=== PATIENT | female | born 1930 | race Caucasian/White ===

== ENCOUNTER 2018-09-02 16:02 | Observation (INO) | payer OTHER ==
--- OUTSIDE RECORDS SUMMARY | 2018-09-02 16:05 | XMS REPORT | Continuity of Care Document ---
:1930 Author Organization Interface Problems Problem Status Onset Classification Date Comments Source Date Reported Abdominal Active Finding 10/08/[address] [facility] pain 8 - [place] Medications Medication Details Route Status Patient Ordering Order Source Instructions Provider Date Aspirin DAILY [facility] [place] Levothyroxine DAILY AT [facility] [place] Amlodipine/Atorva DAILY AT Active [facility]600 [facility]17 [facility] [place] Trazodone AT BEDTIME Active [facility] [place] Famotidine DAILY Active [facility] [place] Docosahexanoic TWICE Active [facility] Ac/Epa DAILY 017 [facility] [place] Multivitamin DAILY Active [facility] [place] Pantoprazole DAILY Active [facility] [place] Vit TWICE Active [facility] C/E/Zn/Coppr/Lute DAILY 017 [facility] in/Zeaxan [place] Hydrocodone EVERY [address] [facility] [address] Bit/Acetaminophen HOURS 015 [facility] - NEEDED PRN [place] For pain to hands and feet Allergies, Adverse Reactions, Alerts Substance Category Reaction Severity Reaction Status Date Comments Source type Reported codeine Nausea/Vo Severe Allergy to Active [facility] Substance [facility] [place] Penicillins Hives Severe Allergy to Active [facility] Substance 8 [facility] [place] Sulfa Hives Severe Allergy to Active [facility] (Sulfonamide Substance 8 [facility] - Antibiotics) [place] Immunizations Immunization Date Given Site Status Last Updated Comments Source Results Order Name Results Value Reference Date Interpretation Comments Source Range Laboratory Glucose Level 111 mg/dL 65 - 120 10/[address] [facility] [address] [facility] /2018 [facility] [place] Laboratory Estimat 70 mL/min 90 10/[address] [facility] [address] Studies Glomerular /2017 [facility] Filtration [place] Rate Laboratory Creatinine 0.78 mg/dL 0.44 - 10/08 [facility]. Studies 1.00 [facility] [place] Laboratory Calcium Level 8.7 mg/dL 8.5 - 10.5 10/[address] [facility] [address] Studies /2018 [facility] [place] Laboratory Blood Urea 8 mg/dL 6 - 20 10/[address] [facility] [address] Studies Nitrogen /2017 [facility] [place] Laboratory Sodium Level 139 mEq/L 135 - 145 10/[address] [facility] [address] Studies /2018 [facility] [place] Laboratory Potassium 3.8 mEq/L 3.6 - 5.0 10/[address] [facility] [address] Studies Level /2017 [facility] [place] Laboratory Chloride Level 111 mEq/L 101 - 111 10/08 [facility]. Studies /2017 [facility] [place] Laboratory Carbon Dioxide 23 mEq/L 21 - 31 10/08 [facility]. Studies Level /2017 [facility] [place] Laboratory Magnesium 2.0 mg/dL 1.8 - 2.5 10/07 [facility]. Studies Level /2018 [facility] [place] Laboratory White Blood 5.6 K/uL 4.3 - 10.9 10/07 [facility]. Studies Count /2017 [facility] [place] Laboratory Red Cell 13.4 % 12.1 - 10/07 [facility]. Studies Distribution 15.2 LuSouqalmal - Width [place] Laboratory Red Blood 3.98 M/uL 3.86 - 10/07 [facility]. Studies Count 4.86 /2017 [facility] [place] Laboratory Platelet Count 196 K/uL 152 - 406 10/07 [facility]. Studies /2018 [facility] [place] Laboratory Neutrophils % 48.2 % 41.7 - [address] [facility] [address] Studies 73.7 /2017 [facility] [place] Laboratory Monocytes % 11.3 % 3.3 - 12.3 10/07 [facility]. Studies /2018 [facility] [place] Laboratory Mean Platelet 10.2 fL 7.6 - 11.3 10/07 [facility]. Studies Volume /2018 [facility] [place] Laboratory Mean 95.0 fL 80 - 100 10/07 [facility]. Studies Corpuscular /2018 [facility] - Volume [place] Laboratory Mean 33.4 g/dL 32.0 - 10/[address] [facility] [address] Studies Corpuscular 36.0 /2017 [facility] - Hemoglobin [place] [facility] Laboratory Mean 31.7 pg 27.0 - 10/[address] [facility] [address] Studies Corpuscular 35.0 /2017 [facility] - Hemoglobin [place] Laboratory Lymphocytes % 33.6 % 15.3 - [address] [facility] [address] Studies 44.8 /2017 [facility] [place] Laboratory Hemoglobin 12.6 g/dL 12.0 - 10/[address] [facility] [address] Studies 15.0 /2017 [facility] [place] Laboratory Hematocrit 37.8 % 36.0 - 10/[address] [facility] [address] Studies 45.0 /2017 [facility] [place] Laboratory Eosinophils % 6.0 % 0 - 4.4 10/[address] [facility] [address] Studies [facility] [place] Laboratory Basophils % 0.9 % 0 - 1.3 10/[address] [facility] [address] Studies /2017 [facility] [place] Laboratory Absolute 2.7 K/uL 1.8 - 8.0 10/[address] [facility] [address] Studies Neutrophil [facility] [place] Laboratory Absolute 0.6 K/uL 0.1 - 1.3 10/[address] [facility] [address] Studies Monocytes /2017 [facility] - (CBC) [place] Laboratory Absolute 1.9 K/uL 0.7 - 4.9 10/[address] [facility] [address] Studies Lymphocytes [facility] - (CBC) [place] Laboratory Absolute 0.3 K/uL 0 - 0.5 10/[address] [facility] [address] Studies Eosinophils [facility] - (CBC) [place] Laboratory Absolute 0.1 K/uL 0 - 0.5 10/[address] [facility] [address] Studies Basophils [facility] - (CBC) [place] Laboratory Phosphorus 2.8 mg/dL 2.5 - 4.3 10/[address] [facility] [address] Studies Level /2017 [facility] [place] Laboratory Total 0.8 mg/dL 0.3 - 1.2 10/05 [facility]. Studies Bilirubin [facility] [place] Laboratory Serum Total 6.3 g/dL 6.0 - 8.3 10/[address] [facility] [address] Studies Protein [facility] [place] Laboratory Lipase 27 U/L 22 - 51 10/[address] [facility] [address] Studies [facility] [place] Laboratory Globulin 2.6 g/dL 2.3 - 3.5 10/05 [facility]. Studies /2017 [facility] [place] Laboratory Direct 0.1 mg/dL 0 - 0.2 10/05 [facility]. Studies Bilirubin /2017 [facility] [place] Laboratory Aspartate 30 IU/L 10 - 42 10/05 [facility]. Studies Amino Transf /2017 [facility] - (AST/SGOT) [place] Laboratory Alkaline 74 IU/L 42 - 121 10/05 [facility]. Studies Phosphatase /2017 [facility] [place] Laboratory Albumin/Globul 1.4 1.1 - 1.8 10/05 [facility]. Studies in Ratio /2017 [facility] [place] Laboratory Albumin 3.7 g/dL 3.2 - 5.5 10/05 [facility]. Studies /2017 [facility] [place] Laboratory Alanine 21 IU/L 10 - 60 10/05 [facility] Studies Aminotransfera [facility] - se (ALT/SGPT) [place] Laboratory Urine pH 5.5 10/04 [facility]. Studies [facility] [place] Laboratory Urine Total Urine 10/04 [facility] Studies Protein Total Souqalmal - Protein [place] Laboratory Urine Specific 1.025 10/04 [facility] Studies [place] [facility] [place] Laboratory Urine Nitrite Urine 10/04 [facility] Studies Nitrite [facility] [place] Laboratory Urine Urine 10/04 [facility] Studies Leukocyte Leukocyte Souqalmal - Esterase Esterase [place] Laboratory Urine Ketones Urine 10/04 [facility] Studies Ketones /2017 [facility] [place] Laboratory Urine Glucose Urine 10/04 [facility] Studies Glucose [facility] [place] Laboratory Urine Blood Urine 10/04 [facility]. Studies Blood /2017 [facility] [place] Laboratory B-Type 57 pg/ml 10/04 [facility] Studies Natriuretic [facility] - Peptide [place] Laboratory Creatine 4.1 ng/ml 0.3 - 4.0 10/04 [facility] Studies Kinase MB [facility] [place] Laboratory Rapid Troponin null 10/04 [facility]. Studies I [facility] [place] Laboratory Creatine 80 IU/L 22 - 269 10/04 [facility]. Studies Kinase /2017 [facility] [place] Laboratory Prothrombin 11.4 9.5 - 12.5 10/04 [facility]. Studies Time SECONDS [facility] [place] Laboratory INR 0.97 10/[address] [facility] [address] Studies International /2017 [facility] - Normalized [place] Ratio Laboratory Activated 31.0 24.3 - 10/[address] [facility] [address] Studies Partial SECONDS 36.9 [facility] - Thromboplast [place] Time Vital Signs Vital Sign Value Date Comments Source Temperature Oral (F) 97.6 F 10/08/[address] [facility] [place] Heart Rate 53 10/08/[address] [facility] [place] Respitory Rate 18 10/08/[address] [facility] [place] Systolic (mm Hg) 140 10/08/[address] [facility] [place] Diastolic (mm Hg) 67 10/08/[address] [facility] [place] Height 69 10/07/[address] [facility] [place] Weight 138.10 10/07/[address] [facility] [address] [facility] [place] Encounters Location Location Encounter Encounter Reason Attending ADM DC Status Source Details Type Number For Provider Date Date Visit [facility] [id number] 10/05 10/[address] [facility] [place] [facility] [id number] MELLISSA 07/26 Active [facility] [place] [facility] [id number] MELLISSA 08/16 Active [facility] /[address] [place], [place] [address] Outpatient [id number] MELLISSA 09/[address] Procedures Procedure Code Date Perfomer Comments Source Abdomen W Erect [id number] 10/06/[address] [facility] [place] Abdomen W Erect [id number] 10/05/[address] [facility] [place] [id number] 10/04/[address] [facility] [facility] [place] Count [id number] 10/04/[address] [facility] [facility] [place] Abdomen & Pelvis [id number] 10/04/[address] [facility] W Contrast [place] Chest Single [id number] 10/04/[address] [facility] [facility] - View [place]
[2018-09-02] MEDS ORDERED: DIAZEPAM 5 MG TABLET ONE (16:50)
[2018-09-02] MEDS ORDERED: ONDANSETRON 4 MG/2 ML VIAL ONE (16:50)
[2018-09-02] MEDS ORDERED: NA CHLORIDE 0.9% 500 ML ONE (16:50)
[2018-09-02 16:54] LABS: Absolute Lymphocytes (CBC) 2.1 K/uL (0.7-4.9); Absolute Monocytes 0.7 K/uL (0.1-1.3); Absolute Neutrophil 3.6 K/uL (1.8-8.0); Basophils % 0.8 % (0-1.3); Eosinophils % 0.8 % (0-4.4); Hematocrit 43.2 % (36.0-45.0); Lymphocytes % 32.7 % (15.3-44.8); MPV 9.2 fL (7.6-11.3); Monocytes % 10.2 % (3.3-12.3)
[2018-09-02 17:14] LABS: Albumin 3.7 g/dL (3.4-5.0); Bilirubin Direct 0.2 mg/dL (0-0.2); Bilirubin Total 0.8 mg/dL (0.2-1.0); Protein, Total 7.3 g/dL (6.4-8.2)
[2018-09-02 17:55] LABS: Urine Blood NEGATIVE (NEG); Urine Glucose NEGATIVE (NEG); Urine Protein NEGATIVE (NEG); Urine Specific Gravity 1.015 (1.005-1.030); Urine pH 7.5 (5.0-7.0)
[2018-09-02 18:04] LABS: Urine Amorphous Sediment TRACE /HPF (NONE SEEN); Urine Bacteria <20 /HPF (<20); Urine Culture Reflex Order NOT NEEDED; Urine RBC NONE SEEN /HPF (NONE SEEN)
[2018-09-02] MEDS ORDERED: POTASSIUM CL SA 10 MEQ TAB PO ONE (18:08)
--- NOTE | 2018-09-02 19:21 | RAD REPORT ---
EXAM DESCRIPTION: CT - Abdomen Pelvis W Contrast - 09/02/2018 7:03 pm CLINICAL HISTORY: Abdominal pain with vomiting COMPARISON: August 25, 2018 MRI spine September 2017 CT TECHNIQUE: Computed axial tomography of the abdomen pelvis was obtained. 100 cc Isovue-300 was admin istered intravenously. Oral contrast was given All CT scans are performed using dose optimization technique as appropriate and may include automated exposure control or mA/KV adjustment according to patient size. FINDINGS: 3.3 centimeter hepatic cyst is unchanged Small enhancing splenic lesions are unchanged probably representing hemangiomas. A small splenic cyst is noted. The pancreas is atrophic. The adrenals and kidneys appear unremarkable Postsurgical changes involve the colon. The bowel caliber and wall thickness is normal. There is no evidence of diverticulitis. A hysterectomy has been performed. The gallbladder has been r emoved Subacute fracture of L1 vertebral body appears unchanged from the recent MRI IMPRESSION: No acute abnormality is displayed.
--- NOTE | 2018-09-02 19:47 | ER ---
Nurse's Notes [facility] Name: Elvi Roberts Age: 87 yrs Sex: Female : 1930 Arrival Date: 09/02/2018 Time: 16:06 Bed 7 Private MD: Herman Cantrell C Diagnosis: Abdominal pain. Possible drug withdrawal Presentation: 09/02 16:08 Presenting complaint: Patient states: For the last few days I have been feeling shaky la1 and nausea. I also have lower back pain from a compression fracture. Transition of care: patient was not received from another setting of care. Onset of symptoms was September 02, 2018. Risk Assessment: Do you want to hurt yourself or someone else? Patient reports no desire to harm self or others. Initial Sepsis Screen: Does the patient meet any 2 criteria? No. Patient's initial sepsis screen is negative. Does the patient have a suspected source of infection? No. Patient's initial sepsis screen is negative. Care prior to arrival: None. 16:08 Method Of Arrival: Ambulatory la1 16:08 Acuity: CHRISSY 3 la1 16:11 Note Pt also reports bright red blood on toilet paper after BM and some abdominal pain la1 for the last 2 days. Historical: - Allergies: 16:08 Codeine; la1 16:08 PENICILLINS; la1 16:08 Sulfa (Sulfonamide Antibiotics); la1 - PMHx: 16:08 Hypertension; Hypothyroidism; GERD; neuropathy; liver cancer; colon cancer; la1 - Immunization history:: Adult Immunizations up to date. - Social history:: Smoking status: Patient/guardian denies using tobacco. - Ebola Screening: : No symptoms or risks identified at this time. - Family history:: not pertinent. - Hospitalizations: : No recent hospitalization is reported. Screenin:40 Abuse screen: Denies threats or abuse. Denies injuries from another. Nutritional sg screening: No deficits noted. Tuberculosis screening: No symptoms or risk factors identified. Never had TB. Fall Risk None identified. Assessment: 16:40 General: Appears in no apparent distress. comfortable, well groomed, well developed, sg well nourished, Behavior is calm, cooperative, appropriate for age. Pain: Complains of pain in lumbar area and left hip Quality of pain is described as aching, Is chronic. Neuro: Level of Consciousness is awake, alert, obeys commands, Oriented to person, place, time, Appropriate for age R Programmer are equal bilaterally Moves all extremities. Speech is normal, Facial symmetry appears normal. Cardiovascular: Capillary refill is brisk in bilateral fingers Patient's skin is warm and dry. Chest pain is denied. Respiratory: Airway is patent Respiratory effort is even, unlabored, Respiratory pattern is regular, symmetrical. GI: Abdomen is flat, non-distended, Reports tolerance of fluids, tolerance of food. : No signs and/or symptoms were reported regarding the genitourinary system. EENT: No signs and/or symptoms were reported regarding the EENT system. Derm: Skin is pink, warm \T\ dry. Musculoskeletal: No signs and/or symptoms reported regarding the musculoskeletal system. 16:48 Reassessment: tremors noted to BUE at this time, pt reports feeling cold, pt currently sg has warm blankets on at this time. 19:57 Reassessment: Patient appears in no apparent distress at this time. Patient and/or ed1 family updated on plan of care and expected duration. Pain level reassessed. Patient is alert, oriented x 3, equal unlabored respirations, skin warm/dry/pink. Patient denies pain at this time. Patient states symptoms have improved. Vital Signs: 16:12 BP 176 / 78; Pulse 74; Resp 18; Temp 97.0; Pulse Ox 98% on R/A; Weight 58.97 kg; Height la1 5 ft. 8 in. (172.72 cm); 16:44 Temp 99.0(TE); sg 19:57 BP 175 / 88; Pulse 73; Resp 18; Temp 97.5(O); Pulse Ox 99% on R/A; Pain 0/10; ed1 21:01 BP 145 / 98; Pulse 68; Resp 18; Temp 98.4(O); Pulse Ox 97% on R/A; Pain 0/10; ed1 16:12 Body Mass Index 19.77 (58.97 kg, 172.72 cm) la1 ED Course: 16:06 Patient arrived in ED. sb2 16:06 Herman Cantrell MD is Private Physician. sb2 16:09 Triage completed. la1 16:09 Arm band placed on right wrist. la1 16:14 Jose Larsen MD is Attending Physician. rn 16:40 Initial lab(s) drawn, by me, sent to lab. First set of blood cultures drawn by me. sg Inserted saline lock: 22 gauge in right forearm, using aseptic technique. Blood collected. 16:44 Omega De Leon, RN is Primary Nurse. sg 17:48 Urine Microscopic Only Sent. ds4 18:[address] via stretcher. eh 19:02 CT completed. Patient tolerated procedure well. Patient moved back from CT. kw1 19:03 CT Abd/Pelvis - W/Contrast In Process Unspecified. EDMS 19:03 Primary Nurse role handed off by Omega De Leon, RICHARD ed1 19:03 Kirstie Evans, RN is Primary Nurse. ed1 19:28 Attending Physician role handed off by Jose Larsen MD pkl 19:28 Aman Fung MD is Attending Physician. pkl 19:45 Herman Cantrell MD is Hospitalizing Provider. pkl 19:57 Patient has correct armband on for positive identification. Placed in gown. Call light ed1 in reach. Side rails up X2. Adult w/ patient. Pulse ox on. NIBP on. 19:57 No provider procedures requiring assistance completed. Patient admitted, IV remains in ed1 place. intact, No redness/swelling at site. 20:22 Awaiting bed assignment. ed1 Administered Medications: 16:46 Drug: Zofran 4 mg Route: IVP; Site: right forearm; sv 17:22 Follow up: Response: No adverse reaction; Nausea is decreased sv 16:46 Drug: NS 0.9% 500 ml Route: IV; Rate: bolus; Site: right forearm; sv 17:22 Follow up: Response: No adverse reaction; IV Status: Completed infusion; IV Intake: sv 500ml 18:01 Drug: Valium 5 mg Route: PO; sg 19:00 Follow up: Response: No adverse reaction; Marked relief of symptoms ed1 18:01 Drug: Potassium Chloride 40 mEq Route: PO; sg 19:00 Follow up: Response: No adverse reaction ed1 Intake: 17:22 PO: 500ml (Contrast); Total: 500ml. sv 17:22 IV: 500ml; Total: 1000ml. sv 17:22 Called and informed Asa. sv Outcome: 19:47 Decision to Hospitalize by Provider. pkl 21:44 Patient left the ED. ed1 Signatures: Dispatcher [employer] Janet Francisco, RN RN Omega Mir, RN RN Aman Pruitt MD MD pkl Hagler, Ervin eh Nieto, Roman, MD MD rn Riggs, Erika, RN RN ed1 Stalin Youngblood ds4 Jose Guerrero RN RN la1 Evon Samuel kw1 Isadora Johnson 2
--- NOTE | 2018-09-02 19:47 | EDPHYS ---
Physician Documentation [facility] Name: Elvi Roberts Age: 87 yrs Sex: Female : 1930 Arrival Date: 09/02/2018 Time: 16:06 Bed 7 Private MD: Herman Cantrell C ED Physician Aman Fung HPI: 09/02 16:28 This 87 yrs old Female presents to ER via Ambulatory with complaints of rn Shakiness, Back Pain. 16:28 The patient presents with abdominal pain in the lower abdomen. Onset: The rn symptoms/episode began/occurred 3 day(s) ago. The symptoms do not radiate. Associated signs and symptoms: Pertinent positives: nausea, Pertinent negatives: diarrhea, fever, vomiting blood. The symptoms are described as achy. Modifying factors: The symptoms are alleviated by nothing, the symptoms are aggravated by nothing. Severity of pain: At its worst the pain was mild in the emergency department the pain is unchanged. The patient has not experienced similar symptoms in the past. Reports back injury in June, on tramadol tid for 30 days, then stopped them 5 days ago, now having nausea, feels "Sick to her stomach", intermittent abd pain, and shaking. . Historical: - Allergies: 16:08 Codeine; la1 16:08 PENICILLINS; la1 16:08 Sulfa (Sulfonamide Antibiotics); la1 - PMHx: 16:08 Hypertension; Hypothyroidism; GERD; neuropathy; liver cancer; colon cancer; la1 - Immunization history:: Adult Immunizations up to date. - Social history:: Smoking status: Patient/guardian denies using tobacco. - Ebola Screening: : No symptoms or risks identified at this time. - Family history:: not pertinent. - Hospitalizations: : No recent hospitalization is reported. ROS: 16:28 Constitutional: Negative for fever, chills, and weight loss, Eyes: Negative for injury, rn pain, redness, and discharge, Neck: Negative for injury, pain, and swelling, Cardiovascular: Negative for chest pain, palpitations, and edema, Respiratory: Negative for shortness of breath, cough, wheezing, and pleuritic chest pain, Abdomen/GI: + abd pain/nausea Back: + chronic back pain MS/Extremity: Negative for injury and deformity, Skin: Negative for injury, rash, and discoloration, Neuro: Negative for headache, numbness, tingling, and seizure. Exam: 16:28 Constitutional: This is a well developed, well nourished patient who is awake, alert, rn and in no acute distress. Standing in room without acute distress Head/Face: Normocephalic, atraumatic. Eyes: Pupils equal round and reactive to light, extra-ocular motions intact. Lids and lashes normal. Conjunctiva and sclera are non-icteric and not injected. Cornea within normal limits. Periorbital areas with no swelling, redness, or edema. ENT: + tongue fasciculations Cardiovascular: Regular rate and rhythm. No pulse deficits. Respiratory: No increased work of breathing, no retractions or nasal flaring. Abdomen/GI: soft, + mild suprapubic tenderness, no rebound Skin: Warm, dry with normal turgor. Normal color with no rashes, no lesions, and no evidence of cellulitis. MS/ Extremity: Pulses equal, no cyanosis. Neurovascular intact. Full, normal range of motion. Equal circumference. Neuro: Awake and alert, GCS 15, oriented to person, place, time, and situation. Cranial nerves II-XII grossly intact. Motor strength 5/5 in all extremities. Sensory grossly intact. Cerebellar exam normal. Normal gait. + coarse tremor bilateral upper ext Vital Signs: 16:12 BP 176 / 78; Pulse 74; Resp 18; Temp 97.0; Pulse Ox 98% on R/A; Weight 58.97 kg; Height la1 5 ft. 8 in. (172.72 cm); 16:44 Temp 99.0(TE); sg 19:57 BP 175 / 88; Pulse 73; Resp 18; Temp 97.5(O); Pulse Ox 99% on R/A; Pain 0/10; ed1 21:01 BP 145 / 98; Pulse 68; Resp 18; Temp 98.4(O); Pulse Ox 97% on R/A; Pain 0/10; ed1 16:12 Body Mass Index 19.77 (58.97 kg, 172.72 cm) la1 MDM: 16:14 Patient medically screened. rn 19:35 Data reviewed: vital signs, nurses notes. pkl 19:44 Data reviewed: lab test result(s), EKG, radiologic studies, CT scan. pkl 19:47 Patient medically screened. pkl 20:16 ED course: Left message in Dr. Sheppard's answering machine regarding admission ( pkl Observation). 09/02 16:24 Order name: Basic Metabolic Panel; Complete Time: 17:31 rn 09/02 16:24 Order name: CBC with Diff; Complete Time: 17:31 rn 09/02 16:24 Order name: Hepatic Function; Complete Time: 17:31 rn 09/02 16:24 Order name: Lipase; Complete Time: 17:31 rn 09/02 16:25 Order name: Urine Microscopic Only rn 09/02 16:25 Order name: Urine Microscopic Only; Complete Time: 18:21 EDMS 09/02 16:24 Order name: CT Abd/Pelvis - W/Contrast; Complete Time: 19:38 rn 09/02 17:50 Order name: Urine Dipstick--Ancillary (enter results); Complete Time: 18:21 ds4 09/02 19:57 Order name: Basic Metabolic Panel EDMS 09/02 19:58 Order name: Basic Metabolic Panel; Complete Time: 07:20 EDMS 09/02 19:58 Order name: CBC with Automated Diff EDMS 09/02 19:58 Order name: CBC with Automated Diff; Complete Time: 07:20 EDMS 09/02 16:24 Order name: IV Start; Complete Time: 16:50 rn 09/02 16:24 Order name: Labs collected and sent; Complete Time: 16:50 rn 09/02 16:25 Order name: Urine Dipstick-Ancillary (obtain specimen); Complete Time: 17:48 rn 09/02 19:57 Order name: Regular EDMS Administered Medications: 16:46 Drug: Zofran 4 mg Route: IVP; Site: right forearm; sv 17:22 Follow up: Response: No adverse reaction; Nausea is decreased sv 16:46 Drug: NS 0.9% 500 ml Route: IV; Rate: bolus; Site: right forearm; sv 17:22 Follow up: Response: No adverse reaction; IV Status: Completed infusion; IV Intake: sv 500ml 18:01 Drug: Valium 5 mg Route: PO; sg 19:00 Follow up: Response: No adverse reaction; Marked relief of symptoms ed1 18:01 Drug: Potassium Chloride 40 mEq Route: PO; sg 19:00 Follow up: Response: No adverse reaction ed1 Disposition: 09/02/18 19:47 Hospitalization ordered by Herman Cantrell for Observation. Preliminary diagnosis is Abdominal pain. Possible drug withdrawal. - Bed requested for Telemetry/MedSurg (observation). - Status is Observation. ed1 - Condition is Stable. - Problem is new. - Symptoms are unchanged. UTI on Admission? No Signatures: Dispatcher [employer] EDMS Evon Leal, RN RN kl Janet Cortez, RN RICHARD Omega De Leon, RN Aman Velarde MD MD pkl Jose Larsen MD MD rn Riggs, Erika, RN RN ed1 AttemaJose RN RN la1 Corrections: (The following items were deleted from the chart) 20:45 19:47 Hospitalization Ordered by A Tamia JACQUES for Observation. Preliminary diagnosis is kl Abdominal pain. Possible drug withdrawal. Bed requested for Telemetry/MedSurg (observation). Status is Observation. Condition is Stable. Problem is new. Symptoms are unchanged. UTI on Admission? No. pkl 21:44 20:45 09/02/2018 19:47 Hospitalization Ordered by A Tamia JACQUES for Observation. ed1 Preliminary diagnosis is Abdominal pain. Possible drug withdrawal. Bed requested for Telemetry/MedSurg (observation). Status is Observation. Condition is Stable. Problem is new. Symptoms are unchanged. UTI on Admission? No. pooja
[2018-09-02] MEDS ORDERED: ACETAMINOPHEN 500 MG TAB PO PRN (19:55)
[2018-09-02] MEDS ORDERED: ONDANSETRON 4 MG/2 ML VIAL IV PRN ×2 (19:55→20:55)
[2018-09-02] MEDS ORDERED: HYDROCODONE/APAP 5/325 MG TAB PO PRN (20:54)
[2018-09-02] MEDS ORDERED: MORPHINE 2 MG/ML SYR IV PRN (20:55)
[2018-09-02 22:19] VITALS: O2SAT 99
[2018-09-02] MEDS: NA CHLORIDE 0.9% 1,000 ML IV SCH (22:38)
[2018-09-02 22:41] VITALS: BMI 20.5
[2018-09-03] MEDS: NA CHLORIDE 0.9% 1,000 ML IV SCH (05:44)
[2018-09-03 06:15] LABS: Absolute Monocytes 0.6 K/uL (0.1-1.3); Absolute Neutrophil 2.9 K/uL (1.8-8.0); Basophils % 0.9 % (0-1.3); Eosinophils % 2.4 % (0-4.4); Hematocrit 37.7 % (36.0-45.0); Lymphocytes % 35.7 % (15.3-44.8); Monocytes % 10.7 % (3.3-12.3)
[2018-09-03 07:00] LABS: Potassium 3.5 mmol/L (3.5-5.1)
[2018-09-03 13:31] VITALS: BP 178/77; TEMP 99.3
--- NOTE | 2018-09-04 00:25 | SS ---
Date of Discharge: 09/03/2018 Chief Complaint: Nausea and abdominal pain. History Of Present Illness: This is an 87-year-old female patient who has some heartburn, indigestion, some nausea, and abdominal pain from time to time, but yesterday after she had this complaint, her family decided to bring her to emergency room as she reports and after she was evaluated, she was admitted to the hospital. She has not had any recurrence of this symptom after she came into the hospital. Denies any vomiting, fever, chills. No constipation. No diarrhea. No bleeding. Allergies: CODEINE, PENICILLIN, AND SULFA. Medications: List reviewed. Review of Systems: GI: As mentioned above. All other systems reviewed are negative. Past Medical History: Significant for hypertension, hyperlipidemia, hypothyroidism, osteoarthritis at multiple sites, gastroesophageal reflux disease, colon cancer, peripheral neuropathy, insomnia, and recently diagnosed compression fracture of L1 for which she has seen Dr. Boudreaux day before yesterday, and she reports that Dr. Boudreaux is going to schedule her for a kyphoplasty procedure in the near future. She has chronic back pain with this and reports that her back pain is slowly improving. Past Surgical History: Partial colectomy due to colon cancer, tonsillectomy, hysterectomy, elbow surgery, hemorrhoidectomy, cataract surgery, appendectomy, and cholecystectomy. Social History: Negative for smoking, alcohol use. Family History: Not pertinent. Physical Examination: Vital Signs: Temperature 98.2, pulse 69, respiratory rate 16, blood pressure 137/64, oxygen saturation 94%. Height 5 feet 8 inches, weight 134 pounds. General: Awake, alert, oriented, not in distress. HEENT: Head atraumatic, normocephalic. Conjunctivae nonerythematous. Sclerae white. Mouth, no thrush or edema noted. Ears/Nose, no mass, lesion, discharge noted. Neck: Supple. No JVD, lymph nodes, bruit, thyromegaly noted. Lungs: Bilateral good equal air entry. Clear to auscultation. No rhonchi. No rales. Heart: Normal heart sounds, no murmur or gallop. Abdomen: Soft, bowel sounds normal. No guarding, rigidity, tenderness, mass, hepatosplenomegaly, distention, or bruit noted. Extremities: No leg edema. No calf tenderness. Skin: No rash, ulcer, cellulitis. Lymphatics: No lymph node enlargement in neck, supraclavicular, infraclavicular region. Neuro: No focal neurological deficit. Chest: Unremarkable. External Genitalia: Deferred. Rectal: Deferred. Laboratory Data: Yesterday, white count 6.4, hemoglobin 14.5, platelets 229. Today, white count 5.7, hemoglobin 12.7, platelets of 193. Yesterday, sodium 140, potassium 3, chloride 105, bicarb 24, BUN 19, creatinine 0.98, glucose 116. Liver function tests unremarkable. Lipase 241. Today, sodium 144, potassium 3.5, chloride 110, bicarb 25, BUN 18, creatinine 0.90, glucose 97. Urinalysis negative. Chest x-ray, no acute abnormality noted. Presence of L1 compression fracture noted on CT abdomen with no other acute abnormality. Hospital Course: After the patient was admitted to the hospital, her condition has remained stable. Medically, she is stable for discharge, and I have encouraged her to keep her appointment with Dr. Boudreaux for outpatient kyphoplasty procedure which will be done sometime in the near future. Meanwhile , she will continue all her previously prescribed home medications. She takes pantoprazole in the morning, and she was also prescribed famotidine at nighttime , but she stopped taking it recently, and I have advised her to restart her famotidine that she has at home. The patient will keep that appointment to see me. Final Diagnoses: 1. Abdominal pain. 2. Gastroesophageal reflux disease. 3. Hypertension. 4. Compression fracture of L1. 5. Colon cancer. 6. Osteoarthritis, multiple sites. 7. Hyperlipidemia. 8. Hypothyroidism. 9. Peripheral neuropathy. 10. Insomnia. HUBERT/MODL Voice ID: [id number] Report ID: [id number] RHONDA
== END 2018-09-03 13:45 | disposition home or self-care (01) ==
LOC: ER 16:02 → ERHOLD 19:52 → 4TH 21:31
PROVIDERS: ADMIT Internal Medicine; ATTEND Internal Medicine
DX: R10.9 Unspecified abdominal pain (principal); K21.9 Gastro-esophageal reflux disease without esophagitis; I10 Essential (primary) hypertension; S32.019A Unspecified fracture of first lumbar vertebra, initial encounter for closed fracture; E78.5 Hyperlipidemia, unspecified; E03.9 Hypothyroidism, unspecified; M19.90 Unspecified osteoarthritis, unspecified site; X58.XXXA Exposure to other specified factors, initial encounter; Y92.9 Unspecified place or not applicable; G62.9 Polyneuropathy, unspecified; G47.00 Insomnia, unspecified; Z88.0 Allergy status to penicillin; Z88.2 Allergy status to sulfonamides; Z90.49 Acquired absence of other specified parts of digestive tract; Z85.038 Personal history of other malignant neoplasm of large intestine
CPT/HCPCS: 36415; 74177; 80048 ×2; 80076; 83690; 85025 ×2; 96361; 96374; 99284; G0378 ×2; J2405 ×3; J7030 ×2; Q9967; 81003; 81015

== ENCOUNTER 2020-09-18 15:28 | Emergency (ER) | payer OTHER ==
--- NOTE | 2020-09-18 16:18 | RAD REPORT ---
EXAM DESCRIPTION: CT - Head Brain Wo Cont - 09/18/2020 4:06 pm CLINICAL HISTORY: Slurred speech COMPARISON: 2019 TECHNIQUE: Computed axial tomography of the head was obtained. IV contrast was not requested. All CT scans are performed using dose optimization technique as appropriate and may include automated exposure control or mA/KV adjustment according to patient size. FINDINGS: An intracranial bleed is not seen . The ventricles are normal in caliber. No extra-axial fluid collection is noted. 2.3 centimeter low-density area left cerebellum likely old infarction Moderate low-density areas within periventricular, deep and subcortical white matter likely represent ischemic changes secondary to small vessel disease. Fluid within the sinuses/ mastoids is not seen. IMPRESSION: No acute intracranial abnormality is seen. If patient's symptoms persist MRI of the bra in would be recommended.
--- NOTE | 2020-09-18 17:15 | RAD REPORT ---
EXAM DESCRIPTION: Dae Single View09/18/2020 4:51 pm CLINICAL HISTORY: Colon cancer/alteration of consciousness COMPARISON: 2017 FINDINGS: The lungs appear clear of acute infiltrate. The heart is normal size IMPRESSION: No acute abnormalities displayed
[2020-09-18 17:35] LABS: Absolute Lymphocytes (CBC) 2.2 K/uL (0.7-4.9); Basophils % 0.6 % (0-1.3); Lymphocytes % 31.6 % (15.3-44.8); MPV 9.4 fL (7.6-11.3); RBC Red Blood Cell Count 4.14 M/uL (3.86-4.86)
[2020-09-18 17:48] LABS: Potassium 3.7 mmol/L (3.5-5.1)
[2020-09-18 17:50] LABS: Protime INR 0.96
--- NOTE | 2020-09-18 18:37 | RAD REPORT ---
EXAM DESCRIPTION: MRI - Brain W/Wo Cont - 09/18/2020 6:19 pm CLINICAL HISTORY: Confusion COMPARISON: July 2020 MRI TECHNIQUE: Axial, sagittal, and coronal magnetic images of the brain were obtained. 20 cc MultiHance administered intravenously FINDINGS: Moderate signal within periventricular, deep and subcortical white matter probably ischemi c changes secondary to small vessel disease. 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 The ventricles are normal in caliber. Diffusion-weighted/ ADC mapping sequences do not demonstrate evidence of an acute infarction. No abnormal enhancement within the brain is seen. An extra-axial fluid collection is not noted. Fluid within the sinuses/mastoids is not seen IMPRESSION: No acute abnormality displayed
--- NOTE | 2020-09-18 18:59 | ER ---
Nurse's Notes [facility] Name: Elvi Roberts Age: 89 yrs Sex: Female : 1930 Arrival Date: 09/18/2020 Time: 15:29 Bed 20 Private MD: Herman Cantrell C Diagnosis: Weakness;Aphasia-resolved Presentation: 09/18 15:43 Chief complaint: Patient states: about 0230 i got cold and went to the bathroom and it tw2 was like i was dizzy like and i noticed i couldn't talk, its like i know what i am trying to say but i cant get the words out Patient's son or daughter states: she had an appointment to get her first Covid shot today so we picked her up and did that she she got it then we were eating and she told us that she woke up last night around 0230 this morning and told me she couldn't talk, we noticed also at lunch today that she couldn't find her words and the she was slurring her words as well and then at other times it was so muffled we were having to get her to repeat what she was saying all together. Coronavirus screen: At this time, the client does not indicate any symptoms associated with coronavirus-19. Ebola Screen: Patient denies travel to an Ebola-affected area in the 21 days before illness onset. Initial Sepsis Screen: Does the patient meet any 2 criteria? No. Patient's initial sepsis screen is negative. Does the patient have a suspected source of infection? No. Patient's initial sepsis screen is negative. Risk Assessment: Do you want to hurt yourself or someone else? Patient reports no desire to harm self or others. Onset of symptoms was September 18, 2020. 15:43 Method Of Arrival: Ambulatory tw2 15:43 Acuity: CHRISSY 3 tw2 16:11 No acute neurological deficit is noted. rb3 Triage Assessment: 15:50 The onset of the patients symptoms was September 18, 2020 at 02:30. General: Appears in tw2 no apparent distress. Behavior is calm, cooperative, appropriate for age. Pain: Denies pain. Neuro:. Stroke Activation: Symptom onset > 6 hours Physician: Stroke Attending; Name: ; Notified At: ; Arrived At: Physician: Chief Stroke Resident; Name: ; Notified At: ; Arrived At: Physician: Stroke Resident; Name: ; Notified At: ; Arrived At: Physician: ED Attending; Name: ; Notified At: ; Arrived At: Physician: ED Resident; Name: ; Notified At: ; Arrived At: Historical: - Allergies: 15:50 Codeine; tw2 15:50 PENICILLINS; tw2 15:50 Sulfa (Sulfonamide Antibiotics); tw2 - Home Meds: 15:50 amlodipine-benazepril 5-10 mg Oral cap 1 cap once daily [Active]; Aspir-81 81 mg Oral tw2 TbEC 1 tab once daily [Active]; famotidine 40 mg Oral tab 1 tab once daily [Active]; Fish Oil 1,000 mg Oral cap 2 cap daily [Active]; levothyroxine 75 mcg tab 1 tab once daily [Active]; Multivitamin 50 Plus Oral tab daily [Active]; Starke 5-325 mg Oral tab [Active]; pantoprazole 40 mg Oral TbEC 1 tab once daily [Active]; PreserVision AREDS 2 [id number] ts-dylc-vj-mg Oral cap [Active]; trazodone 50 mg Oral tab [Active]; - PMHx: 15:50 colon cancer; Hypertension; GERD; Hypothyroidism; liver cancer; neuropathy; tw2 - Immunization history:: Adult Immunizations. - Social history:: Smoking status: . Screenin:00 Abuse screen: Denies threats or abuse. Nutritional screening: No deficits noted. rb3 Tuberculosis screening: No symptoms or risk factors identified. Assessment: 16:00 General: Appears in no apparent distress. comfortable, Behavior is calm, cooperative, rb3 Denies fever, feeling ill. Pain: Denies pain. Neuro: Level of Consciousness is awake, alert, obeys commands, Oriented to person, place, time, situation, Speech is normal, Daughter reports that the pt. was going to get her Covid shot today around 12:30 when she noticed that her mother's speech was slurred. Daughter reports that it's normal for her to have difficulty finding words sometimes, but her speech was more slurred. Pt. reports that she had trouble talking last night per daughter's report.. Cardiovascular: Patient's skin is warm and dry. Cardiovascular: Denies chest pain, nausea, vomiting. Respiratory: Airway is patent Respiratory effort is even, unlabored, Respiratory pattern is regular, symmetrical, Denies cough, shortness of breath. GI: No signs and/or symptoms were reported involving the gastrointestinal system. : No signs and/or symptoms were reported regarding the genitourinary system. 16:00 Derm: Reports she has some spots on her chest. Musculoskeletal: Range of motion: intact rb3 in all extremities. 16:00 VAN Scoring: Arm Drift: Patients demonstrates NO arm weakness. Patient is VAN Negative. rb3 16:00 Patient has been NPO before screening. The patient is alert, and able to follow rb3 commands. The patient does not exhibit slurred or garbled speech. The patient is not exhibiting difficulty speaking. The patient does not exhibit difficulty understanding words. The patient is able to swallow own secretions with no drooling or need for suction. Patient tolerated one teaspoon of water. No drooling, immediate coughing, gurgling, or clearing of the throat was noted. The patient tolerated 90mL of water. No drooling, immediate coughing, gurgling, or clearing of the throat was noted. The patient passed the bedside swallow screening. Oral medications may be given as ordered. Contact Physician for further diet orders. Provider notified of bedside swallow screening results: Tanner Murry MD. 16:55 Reassessment: Daughter reports that the pt. speech and behavior continue to be normal. rb3 Pt. is ready to go home. 17:00 Reassessment: Patient appears in no apparent distress at this time. No changes from rb3 previously documented assessment. 18:00 Reassessment: Patient appears in no apparent distress at this time. Patient and/or rb3 family updated on plan of care and expected duration. Pain level reassessed. Patient is alert, oriented x 3, equal unlabored respirations, skin warm/dry/pink. Patient denies pain at this time. 18:05 Reassessment: Pt. went to MRI. rb3 19:30 General: Appears in no apparent distress. comfortable, Behavior is calm, cooperative. sf Pain: Denies pain. Neuro: Level of Consciousness is awake, alert, obeys commands, Oriented to person, place, time, situation. Cardiovascular: Patient's skin is warm and dry. Respiratory: Airway is patent Respiratory effort is even, unlabored, Respiratory pattern is regular, symmetrical. 20:50 Reassessment: Patient appears in no apparent distress at this time. No changes from sf previously documented assessment. Patient and/or family updated on plan of care and expected duration. Pain level reassessed. Patient is alert, oriented x 3, equal unlabored respirations, skin warm/dry/pink. Vital Signs: 15:43 BP 151 / 79; Pulse 72; Resp 17; Temp 97.9(TE); Pulse Ox 97% on R/A; Weight 65.77 kg; tw2 Height 5 ft. 8 in. (172.72 cm) (R); 16:30 BP 129 / 69; Pulse 59; Resp 20; Pulse Ox 98% on R/A; Pain 0/10; rb3 17:30 BP 112 / 54; Pulse 62; Resp 19; Pulse Ox 98% on R/A; rb3 15:43 Body Mass Index 22.05 (65.77 kg, 172.72 cm) tw2 NIH Stroke Scale Scores: 16:00 NIHSS Score: 0 rb3 17:07 NIHSS Score: 0 kdr ED Course: 15:29 Patient arrived in ED. am2 15:29 Herman Cantrell MD is Private Physician. am2 15:48 Triage completed. tw2 15:50 Arm band placed on. tw2 16:00 Patient has correct armband on for positive identification. Bed in low position. Call rb3 light in reach. Side rails up X 1. library monitor on. Pulse ox on. NIBP on. Warm blanket given. 16:05 Laquita Peña, RN is Primary Nurse. rb3 16:06 CT Head Brain wo Cont In Process Unspecified. EDMS 16:29 Tanner Murry MD is Attending Physician. kdr 16:51 Stroke CXR 1 View In Process Unspecified. EDMS 17:22 Initial lab(s) drawn, by ri, sent to lab. Inserted saline lock: 22 gauge in right kj1 antecubital area, using aseptic technique. Blood collected. 18:07 MRI - Brain W/Wo Cont In Process Unspecified. EDMS 18:23 Attending Physician role handed off by Tanner Murry MD rose 18:23 Drake Mack MD is Attending Physician. rose 18:55 Herman Cantrell MD is Referral Physician. rose 19:04 Shukri Oconnor MD is Referral Physician. rose 20:40 IV discontinued, intact, bleeding controlled, No redness/swelling at site. Pressure sf dressing applied. 20:50 No provider procedures requiring assistance completed. sf Administered Medications: 18:43 CANCELLED (Duplicate Order): Aspirin Chewable Tablet 162 mg PO once rose 19:21 Drug: NS 0.9% 500 ml Route: IV; Rate: bolus; Site: right antecubital; sf 20:40 Follow up: IV Status: Completed infusion; IV Intake: 500ml sf 20:50 Follow up: Response: No adverse reaction sf 19:23 Drug: foLIC Acid 1 mg Route: IVPB; Site: right antecubital; sf 19:25 Follow up: IV Status: Completed infusion sf 20:50 Follow up: Response: No adverse reaction sf 19:23 Drug: PlaVIX 75 mg Route: PO; sf 20:48 Follow up: Response: No adverse reaction sf Point of Care Testing: Blood Glucose: 17:36 Blood Glucose: 119 mg/dL; rb3 Ranges: Intake: 20:40 IV: 500ml; Total: 500ml. sf Outcome: 18:58 Discharge ordered by . rose 20:56 Discharged to home ambulatory, with family. sf 20:56 Condition: stable 20:56 Discharge instructions given to patient, family, Instructed on discharge instructions, follow up and referral plans. medication usage, Demonstrated understanding of instructions, follow-up care, medications, Prescriptions given X 2. 20:57 Patient left the ED. NIH Stroke Scale - NIH Stroke Score Date: 09/18/2020 Time: 16:00 Total Score = 0 1a. Level of Consciousness (LOC) - 0(Alert) 1b. Level of Consciousness (LOC) (Year \T\ Age) - 0(Both) 1c. LOC Commands (Open \T\ Closes Eyes/Recreation Therapy Aides Teacher) - 0(Both) 2. Best Gaze (Lateral Gaze Paresis) - 0(Normal) 3. Visual Field Loss - 0(No visual loss) 4. Facial Palsy - 0(Normal) 5a. Left Arm: Motor (10-second hold) - 0(No drift) 5b. Right Arm: Motor (10-second hold) - 0(No drift) 6a. Left Leg: Motor (5-second hold - always test supine) - 0(No drift) 6b. Right Leg: Motor (5-second hold - always test supine) - 0(No drift) 7. Limb Ataxia (finger/nose \T\ heel/dan - test with eyes open) - 0(Absent) 8. Sensory Loss (pinprick arms/legs/face) - 0(Normal) 9. Best Language: Aphasia (description/naming/reading) - 0(No aphasia) 10. Dysarthria (speech clarity - read or repeat words) - 0(Normal) 11. Extinction and Inattention (visual/tactile/auditory/spatial/personal) - 0(No abnormality) Initials: rb3 NIH Stroke Scale - NIH Stroke Score Date: 09/18/2020 Time: 17:07 Total Score = 0 1a. Level of Consciousness (LOC) - 0(Alert) 1b. Level of Consciousness (LOC) (Year \T\ Age) - 0(Both) 1c. LOC Commands (Open \T\ Closes Eyes/Recreation Therapy Aides Teacher) - 0(Both) 2. Best Gaze (Lateral Gaze Paresis) - 0(Normal) 3. Visual Field Loss - 0(No visual loss) 4. Facial Palsy - 0(Normal) 5a. Left Arm: Motor (10-second hold) - 0(No drift) 5b. Right Arm: Motor (10-second hold) - 0(No drift) 6a. Left Leg: Motor (5-second hold - always test supine) - 0(No drift) 6b. Right Leg: Motor (5-second hold - always test supine) - 0(No drift) 7. Limb Ataxia (finger/nose \T\ heel/dan - test with eyes open) - 0(Absent) 8. Sensory Loss (pinprick arms/legs/face) - 0(Normal) 9. Best Language: Aphasia (description/naming/reading) - 0(No aphasia) 10. Dysarthria (speech clarity - read or repeat words) - 0(Normal) 11. Extinction and Inattention (visual/tactile/auditory/spatial/personal) - 0(No abnormality) Initials: kdr Signatures: Dispatcher [employer] Omega Cunningham RN RN sg Anderson, Corey, MD MD cha Rittger, Kevin, MD MD kdr Wise, Tara, RN RN tw2 Flores Galarza am2 Lisandra Barajas kj1 Laquita Peña RN RN rb3 Omega Dillard RN RN sf Corrections: (The following items were deleted from the chart) 21:12 20:56 Discharged to home with family, sf sf
--- NOTE | 2020-09-18 18:59 | EDPHYS ---
Physician Documentation [facility] Name: Elvi Roberts Age: 89 yrs Sex: Female : 1930 Arrival Date: 09/18/2020 Time: 15:29 Bed 20 Private MD: Herman Cantrell C ED Physician Drake Mack HPI: 09/18 17:07 This 89 yrs old Female presents to ER via Ambulatory with complaints of kdr Slurred Speech, trouble talking. 17:07 The patient presents to the emergency department with a speech or higher order brain kdr function problem, slurred speech. Onset: The symptoms/episode began/occurred at an unknown time. Context: occurred at home, occurred while the patient was at rest. Associated signs and symptoms: The patient has no apparent associated signs or symptoms. Severity of symptoms: At their worst the symptoms were very mild in the emergency department the symptoms are unchanged. Patient's baseline: Neuro: alert and fully oriented, Motor: no deficits, Ambulation: walks without assistance, Speech: normal for age. Current symptoms: Currently, the patient is not experiencing any symptoms. The patient has not experienced similar symptoms in the past. The patient has not recently seen a physician. Historical: - Allergies: 15:50 Codeine; tw2 15:50 PENICILLINS; tw2 15:50 Sulfa (Sulfonamide Antibiotics); tw2 - Home Meds: 15:50 amlodipine-benazepril 5-10 mg Oral cap 1 cap once daily [Active]; Aspir-81 81 mg Oral tw2 TbEC 1 tab once daily [Active]; famotidine 40 mg Oral tab 1 tab once daily [Active]; Fish Oil 1,000 mg Oral cap 2 cap daily [Active]; levothyroxine 75 mcg tab 1 tab once daily [Active]; Multivitamin 50 Plus Oral tab daily [Active]; [place] 5-325 mg Oral tab [Active]; pantoprazole 40 mg Oral TbEC 1 tab once daily [Active]; PreserVision AREDS 2 830-226-81-1 gf-qjdi-em-mg Oral cap [Active]; trazodone 50 mg Oral tab [Active]; - PMHx: 15:50 colon cancer; Hypertension; GERD; Hypothyroidism; liver cancer; neuropathy; tw2 - Immunization history:: Adult Immunizations. - Social history:: Smoking status: . ROS: 17:07 Constitutional: Negative for fever, chills, and weight loss, Eyes: Negative for injury, kdr pain, redness, and discharge, ENT: Negative for injury, pain, and discharge, Neck: Negative for injury, pain, and swelling, Cardiovascular: Negative for chest pain, palpitations, and edema, Respiratory: Negative for shortness of breath, cough, wheezing, and pleuritic chest pain, Abdomen/GI: Negative for abdominal pain, nausea, vomiting, diarrhea, and constipation, Back: Negative for injury and pain, : Negative for injury, bleeding, discharge, and swelling, MS/Extremity: Negative for injury and deformity, Skin: Negative for injury, rash, and discoloration, Psych: Negative for depression, anxiety, suicide ideation, homicidal ideation, and hallucinations, Allergy/Immunology: Negative for hives, rash, and allergies, Endocrine: Negative for neck swelling, polydipsia, polyuria, polyphagia, and marked weight changes, Hematologic/Lymphatic: Negative for swollen nodes, abnormal bleeding, and unusual bruising. 17:07 Neuro: Positive for speech changes, Negative for altered mental status, dizziness, gait disturbance, headache, hearing loss, loss of consciousness, numbness, seizure activity, syncope, near syncope, tingling, tinnitus, tremor, visual changes, weakness. Exam: 17:07 Constitutional: This is a well developed, well nourished patient who is awake, alert, kdr and in no acute distress. Head/Face: Normocephalic, atraumatic. Eyes: Pupils equal round and reactive to light, extra-ocular motions intact. Lids and lashes normal. Conjunctiva and sclera are non-icteric and not injected. Cornea within normal limits. Periorbital areas with no swelling, redness, or edema. Neck: Trachea midline, no thyromegaly or masses palpated, and no cervical lymphadenopathy. Supple, full range of motion without nuchal rigidity, or vertebral point tenderness. No Meningismus. Chest/axilla: Normal chest wall appearance and motion. Nontender with no deformity. No lesions are appreciated. Cardiovascular: Regular rate and rhythm with a normal S1 and S2. No gallops, murmurs, or rubs. Normal PMI, no JVD. No pulse deficits. Respiratory: Lungs have equal breath sounds bilaterally, clear to auscultation and percussion. No rales, rhonchi or wheezes noted. No increased work of breathing, no retractions or nasal flaring. Abdomen/GI: Soft, non-tender, with normal bowel sounds. No distension or tympany. No guarding or rebound. No evidence of tenderness throughout. Back: No spinal tenderness. No costovertebral tenderness. Full range of motion. Skin: Warm, dry with normal turgor. Normal color with no rashes, no lesions, and no evidence of cellulitis. MS/ Extremity: Pulses equal, no cyanosis. Neurovascular intact. Full, normal range of motion. Neuro: Awake and alert, GCS 15, oriented to person, place, time, and situation. Cranial nerves II-XII grossly intact. Motor strength 5/5 in all extremities. Sensory grossly intact. Cerebellar exam normal. Normal gait. Psych: Awake, alert, with orientation to person, place and time. Behavior, mood, and affect are within normal limits. Vital Signs: 15:43 BP 151 / 79; Pulse 72; Resp 17; Temp 97.9(TE); Pulse Ox 97% on R/A; Weight 65.77 kg; tw2 Height 5 ft. 8 in. (172.72 cm) (R); 16:30 BP 129 / 69; Pulse 59; Resp 20; Pulse Ox 98% on R/A; Pain 0/10; rb3 17:30 BP 112 / 54; Pulse 62; Resp 19; Pulse Ox 98% on R/A; rb3 15:43 Body Mass Index 22.05 (65.77 kg, 172.72 cm) tw2 NIH Stroke Scale Scores: 16:00 NIHSS Score: 0 rb3 17:07 NIHSS Score: 0 kdr MDM: 18:23 Patient medically screened. rose 18:49 Data reviewed: vital signs, nurses notes, lab test result(s), EKG, radiologic studies, rose CT scan, MRI, plain films. Data interpreted: laboratory monitor: rate is 62 beats/min, rhythm is regular, Pulse oximetry: on room air is 98 %. Test interpretation: by ED physician or midlevel provider: ECG, plain radiologic studies. Counseling: I had a detailed discussion with the patient and/or guardian regarding: the historical points, exam findings, and any diagnostic results supporting the discharge/admit diagnosis, radiology results, the need for outpatient follow up, for definitive care, an field foreman, a neurosurgeon. 09/18 16:31 Order name: Basic Metabolic Panel; Complete Time: 18:24 kdr 09/18 16:31 Order name: CBC with Diff; Complete Time: 18:24 kdr 09/18 16:31 Order name: Protime (+inr); Complete Time: 18:24 kdr 09/18 16:31 Order name: Ptt, Activated; Complete Time: 18:24 kdr 09/18 17:48 Order name: Glucose, Ancillary Testing; Complete Time: 18:24 EDMS 09/18 18:40 Order name: CREATININE WHOLE BLOOD; Complete Time: 18:44 EDMS 09/18 15:57 Order name: CT Head Brain wo Cont; Complete Time: 17:22 aa5 09/18 16:31 Order name: Stroke CXR 1 View; Complete Time: 17:22 kdr 09/18 16:46 Order name: MRI - Brain W/Wo Cont; Complete Time: 18:44 kdr 09/18 18:43 Order name: Lipid Profile; Complete Time: 19:40 rose 09/18 19:15 Order name: Urine Dipstick--Ancillary (enter results); Complete Time: 19:40 tt3 09/18 16:31 Order name: EKG; Complete Time: 16:32 kdr 09/18 16:31 Order name: Accucheck; Complete Time: 17:41 kdr 09/18 16:31 Order name: Cardiac monitoring; Complete Time: 17:08 kdr 09/18 16:31 Order name: EKG - Nurse/Tech; Complete Time: 17:38 kdr 09/18 16:31 Order name: IV Saline Lock; Complete Time: 17:38 [facility] 09/18 16:31 Order name: Labs collected and sent; Complete Time: 17:38 kdr 09/18 16:31 Order name: NPO; Complete Time: 17:08 kdr 09/18 16:31 Order name: O2 Per Protocol; Complete Time: 17:08 kdr 09/18 16:31 Order name: O2 Sat Monitoring; Complete Time: 17:08 kdr 09/18 16:31 Order name: Stroke Swallow Screen; Complete Time: 17:41 kdr 09/18 18:45 Order name: Urine Dipstick-Ancillary (obtain specimen); Complete Time: 19:16 rose Administered Medications: 18:43 CANCELLED (Duplicate Order): Aspirin Chewable Tablet 162 mg PO once rose 19:21 Drug: NS 0.9% 500 ml Route: IV; Rate: bolus; Site: right antecubital; sf 20:40 Follow up: IV Status: Completed infusion; IV Intake: 500ml sf 20:50 Follow up: Response: No adverse reaction sf 19:23 Drug: foLIC Acid 1 mg Route: IVPB; Site: right antecubital; sf 19:25 Follow up: IV Status: Completed infusion sf 20:50 Follow up: Response: No adverse reaction sf 19:23 Drug: PlaVIX 75 mg Route: PO; sf 20:48 Follow up: Response: No adverse reaction Point of Care Testing: Blood Glucose: 17:36 Blood Glucose: 119 mg/dL; rb3 Ranges: Critical Glucose Levels:Adult <50 mg/dl or >400 mg/dl <40 mg/dl or >180 mg/dl Disposition: 09/18/20 18:58 Discharged to Home. Impression: Weakness, Aphasia - resolved. - Condition is Stable. - Discharge Instructions: Weakness, Aphasia, Aspirin and Your Heart. - Prescriptions for Plavix 75 mg Oral Tablet - take 1 tablet by ORAL route once daily; 20 tablet. Vitamin 27- 0.8 mg Oral Tablet - take 1 tablet by ORAL route once daily; 30 tablet. - Medication Reconciliation Form, Thank You Letter, Antibiotic Education, Prescription Opioid Use form. - Follow up: Herman Cantrell MD; When: 1 - 2 days; Reason: Recheck today's complaints, Continuance of care, Re-evaluation by your physician. Follow up: Shukri Oconnor MD; When: 2 - 3 days; Reason: Recheck today's complaints, Re-evaluation by your physician. - Problem is new. - Symptoms have improved. NIH Stroke Scale - NIH Stroke Score Date: 09/18/2020 Time: 16:00 Total Score = 0 1a. Level of Consciousness (LOC) - 0(Alert) 1b. Level of Consciousness (LOC) (Year \T\ Age) - 0(Both) 1c. LOC Commands (Open \T\ Closes Eyes/Syrup Blender) - 0(Both) 2. Best Gaze (Lateral Gaze Paresis) - 0(Normal) 3. Visual Field Loss - 0(No visual loss) 4. Facial Palsy - 0(Normal) 5a. Left Arm: Motor (10-second hold) - 0(No drift) 5b. Right Arm: Motor (10-second hold) - 0(No drift) 6a. Left Leg: Motor (5-second hold - always test supine) - 0(No drift) 6b. Right Leg: Motor (5-second hold - always test supine) - 0(No drift) 7. Limb Ataxia (finger/nose \T\ heel/dan - test with eyes open) - 0(Absent) 8. Sensory Loss (pinprick arms/legs/face) - 0(Normal) 9. Best Language: Aphasia (description/naming/reading) - 0(No aphasia) 10. Dysarthria (speech clarity - read or repeat words) - 0(Normal) 11. Extinction and Inattention (visual/tactile/auditory/spatial/personal) - 0(No abnormality) Initials: rb3 NIH Stroke Scale - NIH Stroke Score Date: 09/18/2020 Time: 17:07 Total Score = 0 1a. Level of Consciousness (LOC) - 0(Alert) 1b. Level of Consciousness (LOC) (Year \T\ Age) - 0(Both) 1c. LOC Commands (Open \T\ Closes Eyes/Syrup Blender) - 0(Both) 2. Best Gaze (Lateral Gaze Paresis) - 0(Normal) 3. Visual Field Loss - 0(No visual loss) 4. Facial Palsy - 0(Normal) 5a. Left Arm: Motor (10-second hold) - 0(No drift) 5b. Right Arm: Motor (10-second hold) - 0(No drift) 6a. Left Leg: Motor (5-second hold - always test supine) - 0(No drift) 6b. Right Leg: Motor (5-second hold - always test supine) - 0(No drift) 7. Limb Ataxia (finger/nose \T\ heel/dan - test with eyes open) - 0(Absent) 8. Sensory Loss (pinprick arms/legs/face) - 0(Normal) 9. Best Language: Aphasia (description/naming/reading) - 0(No aphasia) 10. Dysarthria (speech clarity - read or repeat words) - 0(Normal) 11. Extinction and Inattention (visual/tactile/auditory/spatial/personal) - 0(No abnormality) Initials: kdr Signatures: Dispatcher [employer] Omega Cunningham RN RN sg Drake Mack MD MD cha Rittger, Kevin, MD MD [facility] Tianna Gibson RN RN tw2 Omega Dillard RN RN sf Corrections: (The following items were deleted from the chart) 16:49 16:32 CT-STROKE BRAIN W/O CONTRAST+CT.RAD.BRZ ordered. EDMS EDMS 18:43 18:25 Aspirin Chewable Tablet 162 mg PO once ordered. rose rose 19:04 18:58 09/18/2020 18:58 Discharged to Home. Impression: Weakness; Aphasia - rose resolved. Condition is Stable. Forms are Medication Reconciliation Form, Thank You Letter, Antibiotic Education, Prescription Opioid Use. Follow up: A Cantrell; When: 1 - 2 days; Reason: Recheck today's complaints, Continuance of care, Re-evaluation by your physician. Problem is new. Symptoms have improved. rose 20:57 19:04 09/18/2020 18:58 Discharged to Home. Impression: Weakness; Aphasia - sg resolved. Condition is Stable. Discharge Instructions: Weakness, Aphasia, Aspirin and Your Heart. Prescriptions for Plavix 75 mg Oral Tablet - take 1 tablet by ORAL route once daily; 20 tablet, Vitamin 27-0.8 mg Oral Tablet - take 1 tablet by ORAL route once daily; 30 tablet. and Forms are Medication Reconciliation Form, Thank You Letter, Antibiotic Education, Prescription Opioid Use. Follow up: A Cantrell; When: 1 - 2 days; Reason: Recheck today's complaints, Continuance of care, Re-evaluation by your physician. Follow up: Shukri Oconnor; When: 2 - 3 days; Reason: Recheck today's complaints, Re-evaluation by your physician. Problem is new. Symptoms have improved. rose
[2020-09-18 19:26] LABS: Urine Blood NEGATIVE (NEG); Urine Glucose NEGATIVE (NEG); Urine Protein TRACE (NEG); Urine Specific Gravity 1.025 (1.005-1.030); Urine pH 5.5 (5.0-7.0)
[2020-09-18] MEDS ORDERED: CLOPIDOGREL 75 MG TABLET ONE (19:35)
[2020-09-18] MEDS ORDERED: NA CHLORIDE 0.9% 500 ML ONE (19:36)
[2020-09-18] MEDS ORDERED: FOLIC ACID 5 MG/ML VIAL ONE (19:37)
[2020-09-19 01:51] VITALS: TEMP 97.9
[2020-09-19 01:52] VITALS: O2SAT 98
[2020-09-19 01:53] VITALS: BP 112/54
--- NOTE | 2020-09-19 14:11 | EKG ---
Test Date: 2020-09-18 Test Time: 17:16:48 Computer Systems Security Administrator: MADELEINE MEASUREMENT RESULTS: Intervals: Rate: 51 WY: 236 QRSD: 140 QT: 478 QTc: 440 [place]: P: 81 WY: 236 QRS: -7 T: 127 INTERPRETIVE STATEMENTS: Sinus bradycardia with marked sinus arrhythmia with 1st degree AV block Nonspecific intraventricular block Cannot rule out Anterior infarct, age undetermined T wave abnormality, consider lateral ischemia Abnormal ECG Compared to ECG 10/04/2017 20:37:25 Myocardial infarct finding now present T-wave abnormality now present Possible ischemia now present Sinus rhythm no longer present Left bundle-branch block no longer present Electronically Signed On 09-19-20 14:09:05 CHECKER CASHIER by Jose Jones
== END 2020-09-18 20:57 | disposition home or self-care (01) ==
LOC: ER 15:28
DX: R53.1 Weakness (principal); I10 Essential (primary) hypertension; E03.9 Hypothyroidism, unspecified; Z79.82 Long term (current) use of aspirin; Z85.05 Personal history of malignant neoplasm of liver; Z88.0 Allergy status to penicillin; Z88.2 Allergy status to sulfonamides; Z88.5 Allergy status to narcotic agent; Z85.038 Personal history of other malignant neoplasm of large intestine
CPT/HCPCS: 96361; 93005; 85025; 80048; 36415; 85610; 80061; 82565; 82947; 85730; 81003; 70450; 71045; 70553; 96374; 99284; A9577; J7040

== ENCOUNTER 2020-09-21 17:42 | Inpatient (IN) | payer OTHER ==
[2020-09-21] MEDS ORDERED: MORPHINE 2 MG/ML SYR ONE ×2 (18:21→18:36)
[2020-09-21] MEDS ORDERED: NA CHLORIDE 0.9% 500 ML ONE (18:21)
[2020-09-21] MEDS ORDERED: HYDROMORPHONE HCL 0.5 MG/0.5 ML INJ ONE ×2 (19:15→21:37)
--- NOTE | 2020-09-21 19:15 | RAD REPORT ---
EXAM DESCRIPTION: RAD - Pelvis - 09/21/2020 7:01 pm CLINICAL HISTORY: Pelvic pain status post injury FINDINGS: Right femoral subcapital fracture. Moderate displacement of fracture fragments. No dislocation
[2020-09-21 19:16] LABS: Absolute Lymphocytes (CBC) 0.9 K/uL (0.7-4.9); Basophils % 0.6 % (0-1.3); Hematocrit 40.5 % (36.0-45.0); Lymphocytes % 11.3 % (15.3-44.8); MPV 10.2 fL (7.6-11.3); RBC Red Blood Cell Count 4.28 M/uL (3.86-4.86)
[2020-09-21 19:20] LABS: Protime INR 0.92
[2020-09-21 19:33] LABS: ALT/SGPT 40 U/L (12-78); AST/SGOT 32 U/L (15-37); Albumin 3.3 g/dL (3.4-5.0); Alkaline Phosphatase 107 U/L (45-117); BUN Blood Urea Nitrogen 23 mg/dL (7-18); Bicarbonate 25 mmol/L (21-32); Bilirubin Direct 0.1 mg/dL (0-0.2); Bilirubin Total 0.4 mg/dL (0.2-1.0); Glucose Level 123 mg/dL (74-106); NT PRO-BNP 350 pg/mL (<450); Potassium 3.7 mmol/L (3.5-5.1); Protein, Total 6.8 g/dL (6.4-8.2); Sodium Level 141 mmol/L (136-145); Troponin (Emerg Dept Use Only) < 0.02 ng/mL (0.0-0.045)
--- NOTE | 2020-09-21 19:43 | ER ---
Nurse's Notes [facility] Name: Elvi Roberts Age: 89 yrs Sex: Female : 1930 Arrival Date: 09/21/2020 Time: 17:44 Bed 5 Private MD: Diagnosis: Left Subcapital Hip Fracture Presentation: 09/21 17:47 Chief complaint: Patient states: L hip pain after mechanical fall just prior to ss arrival. Care prior to arrival: Medication(s) given: Fentanyl 75 mcg IVP IV initiated. 22 GA, in the left antecubital area. Mechanism of Injury: Fall from standing position. Trauma event details: Injury occurred in the [facility], Injury occurred: at home. Injury occurred: September 21, 2020. 17:47 Acuity: CHRISSY 3 ss 17:47 Method Of Arrival: EMS: [facility] ss 17:55 Coronavirus screen: Client denies travel out of the [place] in the last 14 days. Ebola ss Screen: Patient denies exposure to infectious person. Patient denies travel to an Ebola-affected area in the 21 days before illness onset. Initial Sepsis Screen: Does the patient meet any 2 criteria? No. Patient's initial sepsis screen is negative. Does the patient have a suspected source of infection? No. Patient's initial sepsis screen is negative. Risk Assessment: Do you want to hurt yourself or someone else? Patient reports no desire to harm self or others. Onset of symptoms was September 21, 2020. Trauma Activation: Alert Physician: ED Physician; Name: ; Notified At: ; Arrived At: Physician: General Surgeon; Name: ; Notified At: ; Arrived At: Physician: Radiology; Name: ; Notified At: ; Arrived At: Physician: Respiratory; Name: ; Notified At: ; Arrived At: Physician: Lab; Name: ; Notified At: ; Arrived At: Historical: - Allergies: 17:55 Codeine; ss 17:55 PENICILLINS; ss 17:55 Sulfa (Sulfonamide Antibiotics); ss - PMHx: 17:55 colon cancer; GERD; Hypertension; Hypothyroidism; liver cancer; neuropathy; ss - Immunization history:: Adult Immunizations up to date. - Social history:: Smoking status: Patient denies any tobacco usage or history of. - Immunization history: Last tetanus immunization: - up to date. Screenin:47 Abuse screen: Denies threats or abuse. Denies injuries from another. Tuberculosis ss screening: Never had TB. 20:19 Nutritional screening: No deficits noted. Fall Risk Fall in past 12 months (25 points). ll1 IV access (20 points). Ambulatory Aid- Crutches/Cane/Walker (15 pts). Gait- Impaired (20 pts.). Total [place] Fall Scale indicates High Risk Score (45 or more points). Fall prevention measures have been instituted. Side Rails Up X 2 Frequent Obs/Assessments Occuring As available patient and family educated on Fall Prevention Program and Strategies. Primary Survey: 17:47 NO uncontrolled hemorrhage observed. A: The patient is alert. Airway: patent, No ss supplemental oxygen in use on arrival. Oral cavity: clear, Trachea midline. Breathing/Chest: Respiratory pattern: regular, Respiratory effort: spontaneous, unlabored, Chest inspection: symmetrical rise and fall of the chest. Circulation: Pulses: palpable right radial artery, right posterior tibial artery, left radial artery and left posterior tibial artery. Skin color: pink. Disability Alert. Exposure/Environment: There is no evidence of uncontrolled external bleeding. 20:20 Reassessment Breathing/Chest Respiratory pattern Regular Respiratory effort Spontaneous ll1 Unlabored Breath sounds Clear Chest inspection Symmetrical. Secondary Survey: 17:47 Musculoskeletal: Circulation, motion, and sensation intact. Capillary refill < 3 ll1 seconds, LLE externally rotated Tenderness present in L hip Reports pain in L hip. Assessment: 17:50 General: Appears uncomfortable, Behavior is calm, cooperative, appropriate for age. ll1 Pain: Complains of pain in L hip Quality of pain is described as aching, crampy, Pain began 1 hour ago. Aggravated by increased activity. Musculoskeletal: Circulation, motion, and sensation intact. Capillary refill < 3 seconds, LLE externally rotated Tenderness present in L hip. Injury Description: Fall onto L hip. 18:50 Reassessment: No changes from previously documented assessment. Patient and/or family ll1 updated on plan of care and expected duration. Pain level reassessed. 19:50 Reassessment: No changes from previously documented assessment. Patient and/or family ll1 updated on plan of care and expected duration. Pain level reassessed. Patient is alert, oriented x 3, equal unlabored respirations, skin warm/dry/pink. Vital Signs: 17:47 BP 154 / 84; Pulse 85; Resp 16; Temp 98.4(O); Pulse Ox 98% ; Weight 65.77 kg; Pain ss 10/10; 20:40 BP 156 / 77; Pulse 83; Resp 16; Pulse Ox 95% on R/A; ll1 21:34 BP 155 / 85; Pulse 84; Resp 17; Pulse Ox 95% on R/A; Pain 6/10; ll1 Rudy Coma Score: 17:47 Eye Response: spontaneous(4). Verbal Response: oriented(5). Motor Response: obeys ss commands(6). Total: 15. Trauma Score (Adult): 17:47 Eye Response: spontaneous(1); Verbal Response: oriented(1); Motor Response: obeys ss commands(2); Systolic BP: > 89 mm Hg(4); Respiratory Rate: 10 to 29 per min(4); Rudy Score: 15; Trauma Score: 12 ED Course: 17:44 Patient arrived in ED. ss 17:46 Drake Valenzuela PA is PHCP. cp 17:46 Drake Mack MD is Attending Physician. cp 17:47 Patient has correct armband on for positive identification. Bed in low position. Call ss light in reach. 17:47 Patient maintains SpO2 saturation greater than 95% on room air. ss 17:52 Triage completed. ss 17:55 Arm band placed on right wrist. ss 18:01 Yesenia Leal, RICHARD is Primary Nurse. ll1 19:02 XRAY Pelvis In Process Unspecified. EDMS 19:02 XRAY Femur LEFT In Process Unspecified. EDMS 19:41 Herman Cantrell MD is Hospitalizing Provider. cp 19:49 XRAY Chest (1 view) In Process Unspecified. EDMS 20:16 Nayak cath inserted, using sterile technique, 16 Fr., by mn, balloon inflated, to ll1 gravity drainage, urine specimen collected. 20:17 Maintain EMS IV. Dressing intact. Good blood return noted. Site clean \T\ dry. Gauge \T\ ll 1 site: 20 G L AC. 20:20 Thermoregulation: warm blanket given to patient. ll1 20:20 No provider procedures requiring assistance completed. ll1 20:21 Patient admitted, IV remains in place. ll1 Administered Medications: 18:10 Drug: morphine 2 mg {Note: rass -0, pain level 10/10.} Route: IVP; Site: left ll1 antecubital; 18:10 Drug: NS 0.9% 500 ml Route: IV; Rate: 75 ml/hr; Site: left antecubital; ll1 20:44 Follow up: Response: No adverse reaction; RASS: Alert and Calm (0); IV Status: Infusion ll1 continued upon admission 18:28 Drug: morphine 2 mg {Note: rass 0. Pain 9/10.} Route: IVP; Site: left antecubital; ll1 18:29 Follow up: Response: No adverse reaction; Pain is decreased; RASS: Alert and Calm (0) ll1 20:42 Follow up: Response: No adverse reaction; RASS: Alert and Calm (0) ll1 19:00 Drug: Dilaudid 0.5 mg {Note: rass 0. Pain 9/10.} Route: IVP; Site: left antecubital; ll1 20:00 Follow up: Response: No adverse reaction; Pain is decreased; RASS: Alert and Calm (0) ll1 21:26 Drug: Dilaudid 0.5 mg {Note: RASS-0 pain 7/10.} Route: IVP; Site: left antecubital; ll1 21:36 Follow up: Response: No adverse reaction; Pain is decreased; RASS: Alert and Calm (0) 1 Output: 21:33 Urine: 300ml (Nayak); Total: 300ml. ll1 Outcome: 19:42 Decision to Hospitalize by Provider. cp 20:20 Admitted to Med/surg 1 20:20 Condition: stable 20:20 Instructed on the need for admit. 21:33 Admitted to Med/surg accompanied by iadlia, via stretcher, room 206, with chart, Report ll1 called to Viridiana Shepard RN 21:33 Patient's length of stay in the Emergency Department was greater than 2 hours. decision ll1 to admit vs. transferPatient's length of stay extended due to 21:53 Patient left the ED. 1 Signatures: Dispatcher [facility] Jesusita Josue RN RN Drake Marie PA PA cp Lewis, Lynsay, RN RN 1
--- NOTE | 2020-09-21 19:43 | EDPHYS ---
Physician Documentation [facility] Name: Elvi Roberts Age: 89 yrs Sex: Female : 1930 Arrival Date: 09/21/2020 Time: 17:44 Bed 5 Private MD: ED Physician Drake Mack HPI: 09/21 18:00 This 89 yrs old Female presents to ER via EMS with complaints of Fall Injury, cp Hip Pain. 18:00 Details of fall: The patient fell from an upright position, while walking, and struck cp wood candida. Onset: The symptoms/episode began/occurred just prior to arrival. Associated injuries: The patient sustained left hip, decreased range of motion, deformity, painful injury. Patient reports losing balance and falling unto left hip. No LOC, denies hitting head. Report only left hip pain. Historical: - Allergies: 17:55 Codeine; ss 17:55 PENICILLINS; ss 17:55 Sulfa (Sulfonamide Antibiotics); ss - PMHx: 17:55 colon cancer; GERD; Hypertension; Hypothyroidism; liver cancer; neuropathy; ss - Immunization history:: Adult Immunizations up to date. - Social history:: Smoking status: Patient denies any tobacco usage or history of. - Immunization history: Last tetanus immunization: - up to date. ROS: 18:05 Constitutional: Negative for body aches, chills, fever, poor PO intake. cp 18:05 Eyes: Negative for injury, pain, redness, and discharge. cp 18:05 ENT: Negative for ear pain, sore throat, difficulty swallowing, difficulty handling secretions. 18:05 Cardiovascular: Negative for chest pain, palpitations. 18:05 Respiratory: Negative for cough, shortness of breath, wheezing. 18:05 Abdomen/GI: Negative for abdominal pain, nausea, vomiting, and diarrhea, constipation, black/tarry stool, rectal bleeding. 18:05 Back: Negative for pain at rest, pain with movement. 18:05 MS/extremity: Positive for injury or acute deformity, decreased range of motion, pain, tenderness, of the left hip. 18:05 Neuro: Negative for altered mental status, headache, loss of consciousness, syncope, weakness. 18:05 All other systems are negative. Exam: 18:10 Constitutional: The patient appears in no acute distress, alert, awake, cp non-diaphoretic, non-toxic, well developed, well nourished, uncomfortable. 18:10 Head/Face: Normocephalic, atraumatic. cp 18:10 Eyes: Periorbital structures: appear normal, Conjunctiva: normal, no exudate, no injection, Sclera: no appreciated abnormality, Lids and lashes: appear normal, bilaterally. 18:10 ENT: External ear(s): are unremarkable, Nose: is normal, Mouth: Lips: moist, Oral mucosa: pink and intact, moist, Posterior pharynx: Airway: no evidence of obstruction, patent. 18:10 Neck: C-spine: vertebral tenderness, is not appreciated, crepitus, is not appreciated, ROM/movement: is normal, is supple, without pain, no range of motions limitations. 18:10 Chest/axilla: Inspection: normal, Palpation: is normal, no crepitus, no tenderness. 18:10 Cardiovascular: Rate: normal, Rhythm: regular. 18:10 Respiratory: the patient does not display signs of respiratory distress, Respirations: normal, no use of accessory muscles, no retractions, labored breathing, is not present, Breath sounds: are clear throughout, no decreased breath sounds. 18:10 Abdomen/GI: Inspection: abdomen appears normal, Bowel sounds: active, all quadrants, Palpation: abdomen is soft and non-tender, in all quadrants. 18:10 Back: pain, is absent, vertebral tenderness, is not appreciated. 18:10 Musculoskeletal/extremity: Extremities: grossly normal except: noted in the left hip: decreased ROM, deformity, pain, tenderness, ROM: limited passive range of motion, in the left hip, limited passive range of motion due to pain, in the left hip, Perfusion: the extremity is normally perfused throughout, the left hip Severe pain noted. 18:10 Neuro: Orientation: to person, place \\T\\ time. Mentation: is normal, Motor: moves all fours, strength is normal, Sensation: is normal. 19:15 ECG was reviewed by the Attending Physician. cp Vital Signs: 17:47 BP 154 / 84; Pulse 85; Resp 16; Temp 98.4(O); Pulse Ox 98% ; Weight 65.77 kg; Pain ss 10/10; 20:40 BP 156 / 77; Pulse 83; Resp 16; Pulse Ox 95% on R/A; ll1 21:34 BP 155 / 85; Pulse 84; Resp 17; Pulse Ox 95% on R/A; Pain 6/10; ll1 Rudy Coma Score: 17:47 Eye Response: spontaneous(4). Verbal Response: oriented(5). Motor Response: obeys ss commands(6). Total: 15. Trauma Score (Adult): 17:47 Eye Response: spontaneous(1); Verbal Response: oriented(1); Motor Response: obeys ss commands(2); Systolic BP: > 89 mm Hg(4); Respiratory Rate: 10 to 29 per min(4); Rudy Score: 15; Trauma Score: 12 MDM: 17:47 Patient medically screened. rose 18:45 Data reviewed: vital signs, nurses notes, radiologic studies, plain films. cp 18:45 Counseling: I had a detailed discussion with the patient and/or guardian regarding: the cp historical points, exam findings, and any diagnostic results supporting the discharge/admit diagnosis, radiology results, the need for further work-up and treatment in the hospital. Response to treatment: the patient's symptoms have markedly improved after treatment. 09/21 18:47 Order name: Basic Metabolic Panel cp 09/21 18:47 Order name: CBC with Diff cp 09/21 18:47 Order name: LFT's cp 09/21 18:47 Order name: Magnesium; Complete Time: 19:35 cp 09/21 18:47 Order name: NT PRO-BNP; Complete Time: 19:35 cp 09/21 18:47 Order name: PT-INR; Complete Time: 20:40 cp 09/21 18:47 Order name: Troponin (emerg Dept Use Only); Complete Time: 19:35 cp 09/21 18:47 Order name: Ptt, Activated; Complete Time: 20:40 cp 09/21 18:47 Order name: Basic Metabolic Panel; Complete Time: 19:35 EDMS 09/21 20:41 Interpretation: Normal except: CL 109; GLUC 123; BUN 23; GFR 49. cp 09/21 18:47 Order name: CBC with Automated Diff; Complete Time: 20:40 EDMS 09/21 20:40 Interpretation: Normal except: NELLA% 80.0; LYM% 11.3. cp 09/21 18:47 Order name: Liver (Hepatic) Function; Complete Time: 19:35 EDMS 09/21 20:41 Interpretation: Normal except: ALB 3.3; A/G 0.9. 09/21 19:44 Order name: COVID-19 : Document "Date of Symptom Onset" if Symptomatic. 09/21 20:30 Order name: Urine Microscopic Only nd 09/21 17:51 Order name: XRAY Pelvis; Complete Time: 19:17 09/21 17:51 Order name: XRAY Femur LEFT; Complete Time: 20:40 09/21 18:47 Order name: XRAY Chest (1 view); Complete Time: 20:40 09/21 18:47 Order name: EKG; Complete Time: 18:47 09/21 20:32 Order name: Urine Dipstick--Ancillary (enter results) nd 09/21 20:48 Order name: CONS Physician Consult [facility] 09/21 20:48 Order name: Regular [facility] 09/21 20:48 Order name: Basic Metabolic Panel [facility] 09/21 20:48 Order name: Basic Metabolic Panel [facility] 09/21 20:48 Order name: CBC with Automated Diff [facility] 09/21 20:48 Order name: CBC with Automated Diff [facility] 09/21 21:11 Order name: SARS-COV-2 RT PCR [facility] 09/21 17:51 Order name: IV; Complete Time: 18:01 09/21 18:47 Order name: Cardiac monitoring; Complete Time: 19:01 09/21 18:47 Order name: EKG - Nurse/Tech; Complete Time: 19:01 09/21 18:47 Order name: Labs collected and sent; Complete Time: 19:01 09/21 18:47 Order name: O2 Per Protocol; Complete Time: 19:01 09/21 18:47 Order name: O2 Sat Monitoring; Complete Time: 19:01 09/21 18:47 Order name: Nayak; Complete Time: 19:15 cp EC:15 Rate is 80 beats/min. Rhythm is regular. UT interval is prolonged at 244 msec. QRS cp interval is prolonged at 140 msec. QT interval is normal. T waves are Inverted in lead aVL. Interpreted by me. Reviewed by me. Administered Medications: 18:10 Drug: morphine 2 mg {Note: rass -0, pain level 10/10.} Route: IVP; Site: left ll1 antecubital; 18:10 Drug: NS 0.9% 500 ml Route: IV; Rate: 75 ml/hr; Site: left antecubital; 1 20:44 Follow up: Response: No adverse reaction; RASS: Alert and Calm (0); IV Status: Infusion ll1 continued upon admission 18:28 Drug: morphine 2 mg {Note: rass 0. Pain 9/10.} Route: IVP; Site: left antecubital; 1 18:29 Follow up: Response: No adverse reaction; Pain is decreased; RASS: Alert and Calm (0) ll1 20:42 Follow up: Response: No adverse reaction; RASS: Alert and Calm (0) 1 19:00 Drug: Dilaudid 0.5 mg {Note: rass 0. Pain 9/10.} Route: IVP; Site: left antecubital; 1 20:00 Follow up: Response: No adverse reaction; Pain is decreased; RASS: Alert and Calm (0) ll1 21:26 Drug: Dilaudid 0.5 mg {Note: RASS-0 pain 7/10.} Route: IVP; Site: left antecubital; 1 21:36 Follow up: Response: No adverse reaction; Pain is decreased; RASS: Alert and Calm (0) [facility] [place] Disposition: 09/22 06:05 Co-signature as Attending Physician, Drake Mack MD I agree with the assessment and rose plan of care. Disposition: 09/21/20 19:42 Hospitalization ordered by Herman Cantrell for Inpatient Admission. Preliminary diagnosis is Left Subcapital Hip Fracture. - Bed requested for Telemetry/MedSurg (Inpatient). - Status is Inpatient Admission. ll1 - Condition is Stable. - Problem is new. - Symptoms have improved. Signatures: Dispatcher [employer] EDNM Ruth Velazco RN RN mw Anderson, Corey, MD MD cha Smirch, Shelby, RN RN ss Page, Corey, PA PA cp Lewis, Lynsay, RN RN 1 Corrections: (The following items were deleted from the chart) 09/21 20:27 19:44 CORONAVIRUS ordered. EDNM EDMS 21:14 19:42 Hospitalization Ordered by A Tamia JACQUES for Inpatient Admission. Preliminary diagnosis is Left Subcapital Hip Fracture. Bed requested for Telemetry/MedSurg (Inpatient). Status is Inpatient Admission. Condition is Stable. Problem is new. Symptoms have improved. cp 21:53 21:14 09/21/2020 19:42 Hospitalization Ordered by A Tamia JACQUES for Inpatient Admission. ll1 Preliminary diagnosis is Left Subcapital Hip Fracture. Bed requested for Telemetry/MedSurg (Inpatient). Status is Inpatient Admission. Condition is Stable. Problem is new. Symptoms have improved. mw
--- NOTE | 2020-09-21 20:02 | RAD REPORT ---
EXAM DESCRIPTION: RAD - Femur Left - 09/21/2020 7:02 pm CLINICAL HISTORY: Left hip pain FINDINGS: Right femoral subcapital fracture. Moderate displacement of fracture fragments. No dislocation 1 centimeter lucency within distal diaphysis left femur is nonspecific. It may represent focal osteop orosis or a lesion such as a metastasis
--- NOTE | 2020-09-21 20:04 | RAD REPORT ---
EXAM DESCRIPTION: Dae Single View09/21/2020 7:49 pm CLINICAL HISTORY: Chest pain COMPARISON: May 18, 2021 FINDINGS: The lungs appear clear of acute infiltrate. The heart is normal size IMPRESSION: No acute abnormalities displayed
[2020-09-21] MEDS ORDERED: ONDANSETRON 4 MG/2 ML VIAL IV PRN (20:45)
[2020-09-21 20:54] LABS: Urine Bacteria <20 /HPF (<20); Urine RBC <5 /HPF (NONE SEEN)
[2020-09-21 22:36] VITALS: BMI 23.9
[2020-09-21 23:06] LABS: Urine Blood TRACE (NEG); Urine Glucose NEGATIVE (NEG); Urine Protein NEGATIVE (NEG); Urine Specific Gravity 1.025 (1.005-1.030)
[2020-09-22 05:55] LABS: Absolute Lymphocytes (CBC) 1.5 K/uL (0.7-4.9); Basophils % 0.5 % (0-1.3); Hematocrit 38.7 % (36.0-45.0); Lymphocytes % 16.6 % (15.3-44.8); MPV 10.3 fL (7.6-11.3); RBC Red Blood Cell Count 4.11 M/uL (3.86-4.86)
[2020-09-22 06:09] LABS: Potassium 3.6 mmol/L (3.5-5.1)
[2020-09-22] MEDS: MORPHINE 4 MG/ML SYR IV PRN ×2 (07:30→12:52)
[2020-09-22] MEDS: ACETAMINOPHEN 500 MG TAB PO PRN (07:31)
[2020-09-22] MEDS ORDERED: CETIRIZINE HCL 5 MG TABLET PO PRN (07:57)
[2020-09-22] MEDS: BENAZEPRIL 10 MG TAB PO SCH (09:52)
[2020-09-22] MEDS: AMLODIPINE 5 MG TAB PO SCH (09:53)
[2020-09-22] MEDS: FLUTICASONE 50MCG NASAL SPRAY NAS SCH ×2 (09:53→20:08)
[2020-09-22] MEDS: MAGNESIUM OXIDE 400 MG TAB PO SCH (09:53)
[2020-09-22] MEDS: TRAMADOL HCL 50 MG TAB PO PRN ×2 (09:54→17:53)
--- NOTE | 2020-09-22 17:08 | EKG ---
Test Date: 2020-09-22 Test Time: 09:51:17 Router Operator Radial: SHANNON MEASUREMENT RESULTS: Intervals: Rate: 54 NE: 236 QRSD: 138 QT: 480 QTc: 455 [place]: P: 83 NE: 236 QRS: -35 T: 88 INTERPRETIVE STATEMENTS: Sinus bradycardia with marked sinus arrhythmia with 1st degree AV block with premature supraventricular complexes Left axis deviation Left bundle branch block Abnormal ECG Compared to ECG 09/21/2020 23:44:16 Left bundle-branch block now present Sinus rhythm no longer present Ventricular premature complex(es) no longer present T-wave abnormality no longer present Possible ischemia no longer present Electronically Signed On 09-22-20 17:05:58 PRESS OPERATOR INSTANT PR[employer] SHOP by Jose Jones
--- NOTE | 2020-09-22 17:09 | EKG ---
Test Date: 2020-09-21 Test Time: 23:44:16 Environmental Health And Safety Manager: JAVED MEASUREMENT RESULTS: Intervals: Rate: 79 OK: 254 QRSD: 138 QT: 432 QTc: 495 [place]: P: 82 OK: 254 QRS: -48 T: 103 INTERPRETIVE STATEMENTS: Sinus rhythm with 1st degree AV block with occasional premature ventricular complexes and premature atrial complexes Left axis deviation Nonspecific intraventricular block T wave abnormality, consider lateral ischemia Abnormal ECG Compared to ECG 09/18/2020 17:16:48 Atrial premature complex(es) now present Ventricular premature complex(es) now present Left-axis deviation now present Sinus bradycardia no longer present Sinus arrhythmia no longer present Myocardial infarct finding no longer present T-wave abnormality still present Possible ischemia still present Electronically Signed On 09-22-20 17:06:12 CLAY PREPARATION SUPERVISOR by Jose Jones
--- NOTE | 2020-09-22 17:10 | EKG ---
Test Date: 2020-09-21 Test Time: 19:09:14 Flatwork Feeder: CHASIDY MEASUREMENT RESULTS: Intervals: Rate: 82 AR: 242 QRSD: 140 QT: 412 QTc: 481 [place]: P: 91 AR: 242 QRS: -52 T: 94 INTERPRETIVE STATEMENTS: Sinus rhythm with marked sinus arrhythmia with 1st degree AV block Left axis deviation Left bundle branch block Abnormal ECG Compared to ECG 09/18/2020 17:16:48 Left-axis deviation now present Left bundle-branch block now present Sinus bradycardia no longer present Myocardial infarct finding no longer present T-wave abnormality no longer present Possible ischemia no longer present Electronically Signed On 09-22-20 17:06:20 WILDLIFE MANAGEMENT PROFESSOR by Jose Jones
--- NOTE | 2020-09-22 17:10 | EKG ---
Test Date: 2020-09-21 Test Time: 19:09:51 Batter Depositor: CHASIDY MEASUREMENT RESULTS: Intervals: Rate: 80 MT: 244 QRSD: 140 QT: 414 QTc: 477 [place]: P: 86 MT: 244 QRS: -51 T: 96 INTERPRETIVE STATEMENTS: Sinus rhythm with marked sinus arrhythmia with 1st degree AV block with occasional premature ventricular complexes Left axis deviation Left bundle branch block Abnormal ECG Compared to ECG 09/21/2020 19:09:14 Ventricular premature complex(es) now present Electronically Signed On 09-22-20 17:06:19 YARDAGE ESTIMATOR by Jose Jones
[2020-09-22] MEDS: TRAZODONE 50 MG TABLET PO SCH (20:09)
--- NOTE | 2020-09-22 20:40 | CON ---
Date of Consultation: 09/22/2020 Reason For Consultation: Left hip pain. History Of Present Illness: Ms. Roberts is an 89-year-old female who presented to the ER yesterd ay. She sustained a fall onto her left side with subsequent pain to her left hip and inability to be ar weight. Prior to the fall, patient was ambulating without assistive devices. Denies any other mu sculoskeletal complaints at this time. X-rays in the emergency room demonstrated a left subcapital f emoral fracture and was admitted to the floor. Review of Systems: As above, otherwise negative. Past Medical History: Includes colon cancer, GERD, hypertension, hypothyroidism, liver cancer, neuro xin. Allergies: TO CODEINE, PENICILLIN AND SULFA. Medications: Per medication reconciliation. Physical Examination: General: No apparent distress. HEENT: Normocephalic, atraumatic. Neck: Supple. Cardiovascular: Brisk cap refill to all digits. Chest: Nonlabored breathing. Abdomen: Nondistended. Psychiatric: Responsive to exam. Musculoskeletal: Bilateral upper extremities functional range of motion without pain. No gross defo rmities. No obvious dislocations. Right lower extremity functional range of motion without pain. N o gross deformities. No obvious dislocations. Pain with range of motion of the left hip. Tendernes s to palpation of the left hip. No tenderness to palpation of the knee, tibia or ankle. Positive fi ring of FHL, EHL, gastrocsoleus complex, tibialis anterior. Sensation grossly intact to the dorsal a nd plantar surface of the left foot. X-rays: X-rays of the left hip demonstrate a subcapital displaced femoral neck fracture. Social History: Denies tobacco or alcohol use. Assessment And Plan: Ms. Roberts is an 89-year-old female with a left displaced subcapital femur fracture. I discussed with the patient and her family at length risks and benefits associated with operative and nonoperative treatment. Given the displaced fracture pattern, I recommended left hip h emiarthroplasty. Risks and benefits associated with the procedure were discussed and they expressed understanding. We will proceed with surgery tomorrow as patient has been on Plavix, which was discon tinued yesterday. Physical Therapy will be consulted postoperatively to aid with mobilization. JA/CURTIS Voice ID: [id number] Report ID: [id number]
[2020-09-23] MEDS: MORPHINE 4 MG/ML SYR IV PRN ×2 (01:08→05:36)
--- NOTE | 2020-09-23 05:11 | HP ---
Date of Admission: 09/22/2020 Chief Complaint: Fall, hip pain. History Of Present Illness: This is an 89-year-old pleasant female patient, who fell down at home after she lost her balance while she was walking and she lives by herself. So after she fell down, she managed to get to the phone and then called her son and she was brought into emergency room. After she was evaluated, she was admitted to the hospital with diagnosis of hip fracture. When I saw her this morning, she did not have any other complaints except pain in her hip. Allergies: CODEINE CAUSING NAUSEA AND VOMITING, PENICILLIN CAUSING RASH, SULFA CAUSING RASH. Medications: According to office records, she is on amlodipine/benazepril 10/20 one capsule daily, Zyrtec 10 mg daily, Flonase nasal spray 1 spray each nostril 2 times a day, furosemide 20 mg daily as needed for leg swelling, levothyroxine 75 mcg daily, magnesium oxide 250 mg daily, pantoprazole 40 mg daily, trazodone 50 mg at bedtime. Review of Systems: Musculoskeletal: As mentioned above. All other systems reviewed and negative. Past Medical History: Hypothyroidism, impaired fasting glucose, hypertension, hyperlipidemia, gastroesophageal reflux disease, constipation, colon cancer, overactive bladder, leg edema, osteoarthritis at multiple sites, insomnia, osteoporosis. Past Surgical History: Significant for cataract surgery, eyelid surgery, tonsillectomy, cholecystectomy, appendectomy, hemorrhoid surgery, hysterectomy, partial colectomy, and ankle surgery on the left ankle. Family History: Father , had coronary artery disease and [place]. Mother , had myocardial infarction and hypertension. Brother with [place] and coronary artery disease. Sister with diabetes. Social History: Negative for smoking or alcohol use. Physical Examination: Vital Signs: This morning when I saw her, temperature was 97.9, pulse 62, respiratory rate 18, blood pressure 165/76, height 5 feet 8 inches, weight 157 pounds, oxygen saturation 92%. General: Awake, alert, oriented, not in distress. HEENT: Head atraumatic, normocephalic. Conjunctivae nonerythematous. Sclerae white. Mouth, no thrush or edema noted. Ears/Nose, no mass, lesion, discharge noted. Neck: Supple. No JVD, lymph nodes, bruit, thyromegaly noted. Lungs: Bilateral good equal air entry. Clear to auscultation. No rhonchi. No rales. Heart: Normal heart sounds. No murmur or gallop. Abdomen: Soft. Bowel sounds normal. No guarding, rigidity, tenderness, mass, hepatosplenomegaly, distention, or bruit noted. Extremities: No leg edema. No calf tenderness. Skin: No rash, ulcer, cellulitis. Lymphatics: No lymph node enlargement in neck, supraclavicular, infraclavicular region. Neuro: No focal neurological deficit. Chest: Unremarkable. External Genitalia: Deferred. Rectal: Deferred. Laboratory Data: Chest x-ray, no acute cardiopulmonary changes noted. Hip and pelvis x-ray shows left hip subcapital fracture. Yesterday, white count 8, hemoglobin 13.9, platelets 225. This morning, white count 8.9, hemoglobin 13, platelets 206. Yesterday, sodium 141, potassium 3.7, chloride 109, bicarb 25, BUN 23, creatinine 1.06, glucose 123, liver function tests unremarkable. This morning, BUN 23, creatinine 0.74, glucose 129, sodium 139, potassium 3.6, chloride 109, bicarb 23. Urinalysis shows trace leukocyte esterase, 5-10 WBC, bacteria less than 20. COVID-19 test negative. Impression: 1. Left hip subcapital fracture. 2. Hypertension. 3. Hypothyroidism. 4. Impaired fasting glucose. 5. Hyperlipidemia. 6. Colon cancer. 7. Constipation. 8. Gastroesophageal reflux disease. 9. History of leg edema. 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 11. Osteoporosis. 12. Insomnia. Plan: Admit the patient to the hospital for further evaluation and management of this problem. The patient is appropriate for inpatient and is expected to spend 2 midnights in hospital. We will go ahead and consult orthopedic surgeon. We will also consult media relations coordinator as during the course of day today the patient had questionable episode of second-degree AV block on the patient monitor and details were discussed with media relations coordinator. I did talk to Dr. Jones. He has evaluated the patient and given his cardiac clearance, so the patient will have surgery tomorrow for this hip fracture. After the surgery, we should try to get her up to the inpatient rehab. Home medications will be continued, 30 mg Lovenox x1 dose was ordered to be given this morning for DVT prophylaxis and SCD was ordered. HUBERT/CURTIS Voice ID: [id number]
[2020-09-23] MEDS: PANTOPRAZOLE 40MG TABLET PO SCH (05:31)
[2020-09-23] MEDS: LEVOTHYROXINE SOD 0.075 MG TAB PO SCH (05:31)
[2020-09-23] MEDS: TRAMADOL HCL 50 MG TAB PO PRN (07:45)
[2020-09-23] MEDS: D5 0.9 NS 1,000 ML IV SCH ×2 (08:17→21:02)
[2020-09-23] MEDS: MAGNESIUM OXIDE 400 MG TAB PO SCH (09:00)
[2020-09-23] MEDS: BENAZEPRIL 10 MG TAB PO SCH (09:00)
[2020-09-23] MEDS: FLUTICASONE 50MCG NASAL SPRAY NAS SCH ×2 (09:00→20:59)
[2020-09-23] MEDS: AMLODIPINE 5 MG TAB PO SCH (09:00)
--- NOTE | 2020-09-23 09:07 | CON ---
Date of Consultation: 09/22/2020 Reason For Consultation: Cardiac clearance. History Of Present Illness: Ms. Roberts is an 89-year-old woman who fell, had a hip fracture. Danielle Gomez, I believe, is planning to operate on her in the near future. She has a history of hypertens ion. She takes Norvasc, Lotensin; has a history of hypothyroidism, for which she takes Synthroid. C bacilio in after a fall, no syncope. While awaiting surgery, she was noted to be in a second-degree AV b lock and I was consulted. The patient denied any syncope, chest pain, nausea, vomiting, diaphoresis, PND, orthopnea, pedal edema, palpitation, or syncope. Allergies: SHE IS ALLERGIC TO CODEINE, SULFA, AND PENICILLIN. Review of Systems: Negative. Social History: Negative. Family History: Negative. Medications: Listed earlier. Past Medical History: Gastroesophageal reflux disease, hypertension, hypothyroidism. She has had li edilberto cancer and colon cancer in the past. Physical Examination: Vital Signs: Stable, afebrile. HEENT: Negative. Neck: Supple. No bruit. Chest: Clear. Cardiac: Revealed aortic sclerosis and murmur. No gallops or rubs. Abdomen: Benign. EXTREMITIES: Revealed no clubbing, cyanosis, or edema. Diagnostic Data: Fairly unremarkable. Her telemetry showed what appeared to be a blocked PAC, altho ugh this certainly could be a second-degree AV block type 2 that was intermittent. She is in sinus r hythm now. Impression And Plan: Possible second-degree atrioventricular block type 2 versus blocked PAC that is intermittent, asymptomatic, and not causing any hemodynamic compromise. I think the patient is eleanor red to undergo hip surgery. I think she should be evaluated later as an outpatient with a 7-day even t monitor to see if she is having the block more often, and we will consider treatment at that point if necessary. Other problems include hypertension, hypothyroidism, gastroesophageal reflux disease, all of those are stable. She has multiple allergies. She has a history of colon cancer, stable at t his point. I will continue to follow the patient postoperatively. No cardiac workup is recommended at this point. I will get an event monitor and maybe an echocardiogram as an outpatient. MARY ANN/CURTIS Voice ID: [id number] Report ID: [id number]
[2020-09-23] MEDS ORDERED: NA CHLORIDE 0.9% IV ONE (09:41)
[2020-09-23] MEDS ORDERED: TRANEXAMIC ACID IV ONE (09:41)
[2020-09-23] MEDS ORDERED: TRANEXAMIC ACID 1,000 MG in NA CHLORIDE 0.9% 50 ML IV SCH (10:00)
[2020-09-23] MEDS ORDERED: Ringers Lactate 1,000 ML IV ONE (10:42)
[2020-09-23] MEDS ORDERED: LIDOCAINE 1% MPF 5 ML VIAL ONE (11:53)
[2020-09-23] MEDS ORDERED: propofoL 200 MG/20 ML VIAL IV ONE (11:53)
[2020-09-23] MEDS ORDERED: MIDAZOLAM HCL 2 MG/2 ML INJ ONE (11:53)
[2020-09-23] MEDS ORDERED: FENTANYL CITR 100 MCG/2 ML ONE ×2 (11:53→14:21)
[2020-09-23] MEDS ORDERED: ROCURONIUM 50 MG/5 ML VIAL IV ONE (11:54)
[2020-09-23] MEDS ORDERED: CLINDAMYCIN INJ 600 MG in NA CHLORIDE 0.9% 50 ML IV ONE (12:00)
[2020-09-23] MEDS ORDERED: KETOROLAC 30 MG/ML INJ ONE (12:52)
[2020-09-23] MEDS ORDERED: ONDANSETRON 4 MG/2 ML VIAL ONE (12:52)
[2020-09-23] MEDS ORDERED: dexAMETHasone 10 MG/ML VIAL ONE (12:52)
[2020-09-23] MEDS ORDERED: GLYCOPYRROLATE 0.2 MG/ML SYR ONE ×2 (14:21)
--- NOTE | 2020-09-23 14:21 | P.BOP ---
Preoperative diagnosis: left femoral neck fracture Postoperative diagnosis: same Primary procedure: left hip hemiarthroplasty Director Of Vocational Guidance: NONE,NONE Estimated blood loss: 200 cc Specimen: left femoral head Findings: see dictation Anesthesia: General Complications: None Drain(s): Urinary catheter Implants: 9 mm Biomet Echo Fx stem, 50 mm shell, 28x+6mm head Fluids & blood products: per anesthesia record Transferred to: Recovery Room Condition: Good
[2020-09-23] MEDS ORDERED: NEOSTIGMINE 1 MG/ML -5 ML ONE (14:23)
[2020-09-23] MEDS ORDERED: DOCUSATE NA 100 MG CAP PO PRN (14:28)
[2020-09-23 15:03] LABS: Hematocrit 39.4 % (36.0-45.0)
--- NOTE | 2020-09-23 16:05 | RAD REPORT ---
EXAM DESCRIPTION: RAD - Pelvis - 09/23/2020 3:19 pm CLINICAL HISTORY: postop, left hip prosthesis placement COMPARISON: Pelvis dated 09/21/2020 TECHNIQUE: AP imaging of the pelvis was obtained. FINDINGS: Left bipolar prosthesis has been placed. Implant is in good position. Pelvis, implant and proximal left femur show no suspicious or unexpected findings.
--- NOTE | 2020-09-23 16:06 | RAD REPORT ---
EXAM DESCRIPTION: RAD - Hip Left 2 View - 09/23/2020 3:20 pm CLINICAL HISTORY: postop, left hip prosthesis placement COMPARISON: No comparisons FINDINGS: AP and cross-table lateral views were obtained. Left bipolar prosthesis has been placed. Femoral and acetabular components are well positioned. No un expected bone or implant finding. Normal postsurgical changes present in the soft tissues lateral to the joint.
[2020-09-23] MEDS: CLINDAMYCIN INJ 600 MG in NA CHLORIDE 0.9% 50 ML IV SCH (18:00)
[2020-09-23] MEDS: TRAZODONE 50 MG TABLET PO SCH (20:59)
[2020-09-24] MEDS: TRAMADOL HCL 50 MG TAB PO PRN ×2 (01:18→21:28)
[2020-09-24] MEDS: CLINDAMYCIN INJ 600 MG in NA CHLORIDE 0.9% 50 ML IV SCH ×2 (01:18→10:00)
[2020-09-24] MEDS: D5 0.9 NS 1,000 ML IV SCH (05:02)
[2020-09-24] MEDS: LEVOTHYROXINE SOD 0.075 MG TAB PO SCH (05:10)
[2020-09-24] MEDS: PANTOPRAZOLE 40MG TABLET PO SCH (05:10)
[2020-09-24 05:38] LABS: Basophils % 0.2 % (0-1.3); Hematocrit 33.8 % (36.0-45.0); Lymphocytes % 7.4 % (15.3-44.8); MPV 9.5 fL (7.6-11.3); RBC Red Blood Cell Count 3.61 M/uL (3.86-4.86)
[2020-09-24 05:50] LABS: Magnesium 2.1 mg/dL (1.8-2.4); Potassium 4.4 mmol/L (3.5-5.1)
--- NOTE | 2020-09-24 06:02 | PN ---
Date of Progress Note: 09/23/2020 Subjective: The patient was seen for followup. This morning, she was lying in bed, not in any distr ess. Denies any new complaints. Her hip pain is better compared to before. No nausea, no vomiting. She has been no shortness of breath. Objective: Vital Signs: Reviewed. HEENT: Unremarkable. Lungs: Clear to auscultation. Heart: Sounds normal. Abdomen: Soft. Bowel sounds normal. No guarding, rigidity, tenderness, or distention. Extremities: No leg edema. Laboratory Data: Reviewed. Impression: 1.Hip fracture. 2.Hypertension. 3.Insomnia. 4.Colon cancer. Plan: We will go ahead and continue current antihypertensive medication. Continue current pain medi cation. The patient will have hip surgery today with Dr. Limon and as of tomorrow we will start her o n anticoagulation therapy for DVT prophylaxis using Lovenox. We will repeat blood work tomorrow morn ing. Details and plan of treatment discussed with her. We will continue current treatment for insom arabella. HUBERT/MODL Voice ID: [id number] Report ID: [id number]
[2020-09-24] MEDS ORDERED: MAGNESIUM HYDROXIDE 8% 30 ML PO PRN (07:31)
[2020-09-24 08:26] LABS: Blood Morphology Comment NOT SEEN (NOT SEEN); Platelet Estimate ADEQ; White Blood Cell Scan OK (OK)
--- NOTE | 2020-09-24 08:29 | OP ---
Date of Procedure: 09/23/2020 Surgeon: Tom Limon MD Preoperative Diagnosis: Left femoral neck fracture. Postoperative Diagnosis: Left femoral neck fracture. Procedure: Left hip hemiarthroplasty. Anesthesia: General endotracheal. Fluids: Per Anesthesia record. Ebl: 200 cc. Complications: None. Implants: 9 mm Biomet Echo fracture stem with a 50 mm acetabular shell 28 x +6 mm head. Indications For Procedure: Elvi is an 89-year-old female who presented to the ER after sustaining a fall on to her left side with some pain to her left hip and inability to bear weight. X-rays in the emergency room demonstrated slight left femoral neck fracture. I discussed with the patient and her family risks and benefits associated with operative and nonoperative treatment and they expressed their understanding and elected to proceed with left hip hemiarthroplasty. Description Of Procedure: After informed consent was obtained, the patient was identified in the preoperative holding area. The left lower extremity was marked. The patient was then taken back to the operating room, transferred to the operating table in supine fashion and placed under general endotracheal anesthesia. She was then placed on the operating table in right lateral decubitus position with axillary roll placed and extremities well padded. The left lower extremity was then prepped and draped in usual sterile fashion. Time-out was initiated. Correct patient and procedure were confirmed and identified. The patient did receive her preoperative prophylactic antibiotics. Approximately a 15 cm incision was made over the greater trochanter and over the lateral aspect of the hip consistent with a posterior hip approach. Dissection was taken out of the tensor fascia shauna which was split, divided in line with the incision. Charnley retractor had been placed. Dissection was then taken down to the short external rotators, which were tagged with #5 Ethibond and elevated off the greater trochanter. A T-shaped capsulotomy was then performed and capsule was then tagged with #5 Ethibond sutures. The fracture was then identified. Hematoma was evacuated. Corkscrew was then used to remove the femoral head and a size 50 mm shell was selected after it was measured. Trial head was then placed within the shell within the acetabulum, there was good overall fit. Next, we proceed with preparation of the femoral canal. A cookie cutter followed by a lateralizer were placed followed by a canal finder was placed down the femoral canal in an antegrade fashion followed by lateralizer. The proximal femur was then reamed from size 7 to 13 mm reamer in 1 mm increments. Following this, hip was then broached up to a size 12 mm broach, the 13 mm broach did not fit and at that point, it was elected to continue with the 12 mm broach. The 12 mm broach was then placed. Trial implants were then removed. The wound was then irrigated thoroughly with normal saline. Bone plug was then placed 150 mm down the femoral canal from the level of the medial calcar. Cement was then prepared on the back table and placed down the femoral canal using a cement gun and cookie breaker. After the cement was placed, size 9 mm Biomet Echo fracture stem was then put down the femoral canal and held in position until the cement was hardened. Excess cement was then removed, and once the cement was hardened the final implants were then placed using a 50 mm shell and a +6 mm head. Hip was reduced. There was good overall leg length as well as stability with that. Trial implants were then removed and a 50 mm shell and 28 with a +6 mm head was then selected. The hip was then reduced with the final implant. There was good overall stability and leg length. The wound was then irrigated thoroughly with normal saline. The capsule was approximated using #5 Ethibond. External rotators were tacked back to the greater trochanter using a drill and suture passer and tied over a bone bridge. Tensor fascia shauna was approximated using a 0 Vicryl. Subcutaneous tissue was approximated using a 2-0 Vicryl. Skin was approximated using chiara. Sterile dressings were applied. The patient was awakened and placed in an abduction pillow and transferred to PACU in stable condition. Postoperative Plan: She will be weightbearing as tolerated on her left lower extremity. Physical Therapy will be consulted to aid with mobilization. CV/MODL Voice ID: [id number] Report ID: [id number] RHONDA
[2020-09-24] MEDS ORDERED: ENOXAPARIN 40 MG/0.4 ML SQ SCH (09:00)
[2020-09-24] MEDS: MAGNESIUM OXIDE 400 MG TAB PO SCH (09:00)
[2020-09-24] MEDS: FLUTICASONE 50MCG NASAL SPRAY NAS SCH ×2 (10:30→21:29)
[2020-09-24] MEDS: BENAZEPRIL 10 MG TAB PO SCH (10:31)
[2020-09-24] MEDS: AMLODIPINE 5 MG TAB PO SCH (10:32)
[2020-09-24] MEDS: ACETAMINOPHEN 500 MG TAB PO PRN (10:34)
--- NOTE | 2020-09-24 19:57 | P.PN ---
Subjective Date of Service: 09/24/20 Physical Examination - Vital Signs Temperature: 97.1 F Blood Pressure: 147/67 Pulse: 78 Respirations: 20 Pulse Ox (%): 93 - Studies Microbiology Data (last 24 hrs): 09/21/20 20:10 Clean Catch Urine [place] Count - Final BETWEEN 10,000 & 100,000 CFU/ML 09/21/20 20:10 Clean Catch Urine - Final MIXED JORGE.
--- NOTE | 2020-09-24 20:33 | P.PN ---
Subjective Date of Service: 09/24/20 Chief Complaint: s/p left hip hemiarthroplasty Subjective: Improving, Working w/ PT pain controlled; working with PT Physical Examination - Vital Signs Temperature: 97.9 F Blood Pressure: 134/65 Pulse: 67 Respirations: 17 Pulse Ox (%): 94 - Physical Exam General: Alert, In no apparent distress Musculoskeletal: Other (LLE: dressing c/d/i; +EHL/FHL/GSC/TA; sensation grossly intact distally) - Studies Microbiology Data (last 24 hrs): 09/21/20 20:10 Clean Catch Urine [place] Count - Final BETWEEN 10,000 & 100,000 CFU/ML 09/21/20 20:10 Clean Catch Urine - Final MIXED JORGE. Assessment And Plan - Plan Elvi is an 89 yo female s/p left hip hemiarthroplasty POD#1 -PT to mobilize; WBAT LLE -lovenox for DVT prophylaxis -continue to monitor H/H -d/c mcginnis
[2020-09-24] MEDS ORDERED: DOCUSATE NA/SENNA CONC 1 TAB PO SCH (21:00)
[2020-09-24] MEDS: TRAZODONE 50 MG TABLET PO SCH (21:28)
--- NOTE | 2020-09-24 22:21 | PN ---
Date of Progress Note: 09/24/2020 Subjective: The patient was seen for followup this morning. No new complaints or problems reported by the patient. She was lying in bed, not in distress. Denies any new complaints. When I saw her t his morning, she did not even realize that she had her surgery done yesterday. No chest pain or shor tness of breath. No nausea or vomiting. Objective: Vital Signs: Reviewed. HEENT: Unremarkable. Lungs: Clear to auscultation. Heart: Sounds normal. Abdomen: Soft. Bowel sounds normal. No guarding, rigidity, tenderness, or distention. Extremities: No leg edema. Laboratory Data: White count 13.5, hemoglobin 11.7, platelets 164. Sodium 137, potassium 4.4, chlor delio 107, bicarb 24, BUN 23, creatinine 0.85, glucose 136. Impression: 1.Left hip fracture. 2.Anemia due to acute blood loss. 3.Hypertension. 4.Insomnia. Plan: We will continue current medication. Continue DVT prophylaxis using Lovenox per order. We wi ll go ahead and continue current antihypertensive medication. The patient is on trazodone for insomn ia. We will continue that. Continue current pain medication. Physical therapy to work with the patient. We will monitor her blood work and we will consult rehab. HUBERT/MODL Voice ID: [id number] Report ID: [id number]
[2020-09-25] MEDS: MORPHINE 4 MG/ML SYR IV PRN (01:50)
[2020-09-25] MEDS: PANTOPRAZOLE 40MG TABLET PO SCH (05:36)
[2020-09-25] MEDS: TRAMADOL HCL 50 MG TAB PO PRN (05:37)
[2020-09-25] MEDS: LEVOTHYROXINE SOD 0.075 MG TAB PO SCH (05:37)
[2020-09-25 06:03] LABS: Absolute Lymphocytes (CBC) 2.3 K/uL (0.7-4.9); Basophils % 0.8 % (0-1.3); Hematocrit 33.7 % (36.0-45.0); Lymphocytes % 20.4 % (15.3-44.8); MPV 10.2 fL (7.6-11.3); RBC Red Blood Cell Count 3.57 M/uL (3.86-4.86)
[2020-09-25] MEDS: AMLODIPINE 5 MG TAB PO SCH (08:20)
[2020-09-25] MEDS: MAGNESIUM OXIDE 400 MG TAB PO SCH (08:20)
[2020-09-25] MEDS: FLUTICASONE 50MCG NASAL SPRAY NAS SCH (08:21)
[2020-09-25] MEDS ORDERED: BENAZEPRIL 10 MG TAB PO SCH (09:00)
[2020-09-25 10:00] VITALS: BP 155/80
[2020-09-25 10:02] VITALS: TEMP 98.5
[2020-09-25 10:51] VITALS: O2SAT 93
--- NOTE | 2020-09-26 13:44 | OP ---
Date of Procedure: 09/23/2020 Surgeon: Tom Limon MD Preoperative Diagnosis: Left femoral neck fracture. Postoperative Diagnosis: Left femoral neck fracture. Procedure: Left hip hemiarthroplasty. Anesthesia: General endotracheal. Fluids: Per Anesthesia record. Ebl: 200 cc. Complications: None. Implants: 9 mm Biomet Echo fracture stem with a 50 mm acetabular shell 28 x +6 mm head. Indications For Procedure: Elvi is an 89-year-old female who presented to the ER after sustaining a fall on to her left side with some pain to her left hip and inability to bear weight. X-rays in the emergency room demonstrated slight left femoral neck fracture. I discussed with the patient and her family risks and benefits associated with operative and nonoperative treatment and they expressed their understanding and elected to proceed with left hip hemiarthroplasty. Description Of Procedure: After informed consent was obtained, the patient was identified in the preoperative holding area. The left lower extremity was marked. The patient was then taken back to the operating room, transferred to the operating table in supine fashion and placed under general endotracheal anesthesia. She was then placed on the operating table in right lateral decubitus position with axillary roll placed and extremities well padded. The left lower extremity was then prepped and draped in usual sterile fashion. Time-out was initiated. Correct patient and procedure were confirmed and identified. The patient did receive her preoperative prophylactic antibiotics. Approximately a 15 cm incision was made over the greater trochanter and over the lateral aspect of the hip that corresponded to the posterior hip approach. Dissection was taken out of the tensor fascia shauna which was split, divided in line with the incision. Charnley retractor had been placed. Dissection was then taken down to the short external rotators, which were tagged with #5 Ethibond and elevated off the greater trochanter. A T-shaped capsulotomy was then performed and capsule was then tagged with #5 Ethibond sutures. The fracture was then identified. Hematoma was evacuated. Corkscrew was then used to remove the femoral head and a size 50 mm shell was selected after it was measured. Trial head was then placed within the shell within the acetabulum, there was good overall fit. Next, attention was taken to preparation of the femoral canal. A cookie cutter followed by a canal finder was then placed down the femoral canal in an antegrade fashion followed by lateralizer. The proximal femur was then reamed from size 7 mm to size 13 mm reamer in 1 mm increments. Following this, hip was then broached from a size 7 mm broach up to a size 12 mm broach, 13 mm broach did not fit and, at that point, it was elected to continue with the 12 mm broach. The 12 mm broach was then placed. Trial implants were then removed. The wound was then irrigated thoroughly with normal saline. Bone plug was then placed 150 mm down the femoral canal from the level of the medial calcar. Cement was then prepared on the back table and placed down the femoral canal using a cement gun and wet cotton feeder. After the cement was placed, size 9 mm Biomet Echo fracture stem was then put down the femoral canal and held in position until the cement was hardened. Excess cement was then removed, and once the cement was hardened the final implants were then placed using a 50 mm shell and a +6 mm head. Hip was reduced. There was good overall leg length as well as stability with that. Trial implants were then removed and a 50 mm shell and 28 with a +6 mm head was then selected. The hip was then reduced with the final implant. There was good overall stability and leg length. The wound was then irrigated thoroughly with normal saline. The capsule was approximated using #5 Ethibond. External rotators were tacked back to the greater trochanter using a drill and suture passer and tied over a bone bridge. Tensor fascia shauna was approximated using a 0 Vicryl. Subcutaneous tissue was approximated using a 2-0 Vicryl. Skin was approximated using chiara. Sterile dressings were applied. The patient was awakened and placed in an abduction pillow and transferred to PACU in stable condition. Postoperative Plan: She will be weightbearing as tolerated on her left lower extremity. Physical Therapy will be consulted to aid with mobilization. CV/MODL Voice ID: [id number] Report ID: [id number] RHONDA
--- NOTE | 2020-09-27 00:25 | DS ---
Date of Discharge: 09/25/2020 Disposition: Discharged to go to rehab floor. Physical Examination: HEENT: Unremarkable. Lungs: Clear to auscultation. Heart: Sounds normal. Abdomen: Soft. Bowel sounds normal. No guarding, rigidity, tenderness, or distention. Extremities: No leg edema. Discharge Medications And Instructions: See copy of transfer order for more details. Labs Done During This Hospitalization: Upon admission on 09/21/2020, white count 8, hemoglobin 13.9, platelets 225 and on 09/24/2020, white count was 13.5, hemoglobin 11.7, platelets 164. Chemistry on admission, sodium 141, potassium 3.7, chloride 109, bicarb 25, BUN 23, creatinine 1.06, glucose 123. Liver function tests unremarkable. Troponin less than 0.02. Last chemistry from 09/24/2020, sodium 137, potassium 4.4, chloride 107, bicarb 24, BUN 23, creatinine 0.85, glucose 136. Hospital Course: This is an 89-year-old female patient, who came to emergency room after she had fallen down at home. Please see dictated H and P for more information. The patient fell down at home and was brought into the emergency room and after her evaluation, she was admitted to hospital with hip fracture. After she was admitted to the hospital, Orthopedic surgeon was consulted for hip fracture. Postoperatively, she is doing well. Pain in the hip area is better after the surgery. Her pain is well controlled with pain medication. She does not remember exactly how she ended up in the hospital and this is after surgery. Prior to surgery, she was able to provide all the details, but day after surgery when I saw her, she did not even know that she had surgery done on the prior day and I did inform her about all those details again. Postoperatively, she has not experienced any complications or no new problems reported. She is on Lovenox for DVT prophylaxis. We will continue that. Physical therapy and inpatient rehab were consulted and today the patient was transferred to rehab in stable condition where I will continue to follow up. Final Diagnoses: 1. Left hip subcapital fracture. 2. Hypertension. 3. Hypothyroidism. 4. Impaired fasting glucose. 5. Hyperlipidemia. 6. Colon cancer. 7. Constipation. 8. Gastroesophageal reflux disease. 9. History of leg edema. 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 11. Osteoporosis. 12. Insomnia. HUBERT/MODL Voice ID: [id number] Report ID: [id number] MTDDanielle
== END 2020-09-25 10:30 | DRG 522 ==
LOC: ER 17:42 → ERHOLD 20:44 → 2ND 21:36
PROVIDERS: ADMIT Internal Medicine; ATTEND Internal Medicine
PROC: 0SRS0J9 Replacement of Left Hip Joint, Femoral Surface with Synthetic Substitute, Cemented, Open Approach (ICD-10-PCS; principal; 2020-09-23 11:30)
DX: S72.012A Unspecified intracapsular fracture of left femur, initial encounter for closed fracture (principal); D62 Acute posthemorrhagic anemia; C18.9 Malignant neoplasm of colon, unspecified; I10 Essential (primary) hypertension; E78.5 Hyperlipidemia, unspecified; G47.00 Insomnia, unspecified; I44.1 Atrioventricular block, second degree; K59.00 Constipation, unspecified; M19.90 Unspecified osteoarthritis, unspecified site; M81.0 Age-related osteoporosis without current pathological fracture; E03.9 Hypothyroidism, unspecified; K21.9 Gastro-esophageal reflux disease without esophagitis; R73.01 Impaired fasting glucose; W18.30XA Fall on same level, unspecified, initial encounter; Z88.5 Allergy status to narcotic agent; Z88.0 Allergy status to penicillin; Z88.1 Allergy status to other antibiotic agents; Z85.05 Personal history of malignant neoplasm of liver; Z60.2 Problems related to living alone; Z79.890 Hormone replacement therapy; Z79.899 Other long term (current) drug therapy; Z90.49 Acquired absence of other specified parts of digestive tract; Z90.710 Acquired absence of both cervix and uterus; Z20.822 Contact with and (suspected) exposure to COVID-19
CPT/HCPCS: 36415; 51702; 70450; 70553; 71045; 72170; 80048; 80061; 80076; 81003; 81015; 82565; 82947; 83735; 83880; 84484; 85014; 85018; 85025; 85610; 85730; 87086; 87088; 88305; 88311; 93005; 94010; 96361; 96374; 96375; 97110; 97161; 97530; 99284; 99285; A9577; G0390; J1100; J1170; J1650; J2250; J2270; J2405; J2704; J2710; J3010; J7040; J7042; J7120; U0003

== ENCOUNTER 2020-09-25 09:38 | Inpatient (IN) | payer OTHER ==
--- NOTE | 2020-09-24 17:25 | R.PREADM ---
PRE-ADMISSION SCREENING FORM SCREENING DATE AND TIME 09/24/2020 13:32 ([employer]) ANTICIPATED REHAB ADMISSION DATE 09/26/2020 REFERRING FACILITY [facility] REFERRAL DATE AND TIME 09/24/2020 13:32 ([employer]) REFERRAL OFFICE PHONE [phone] REFERRAL ROOM# [id number] ACUTE ADMIT DATE 09/25/2020 Previous Rehabilitation(s): No. 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 Shukri Oconnor M.D. MR# [id number] NAME ELVI ROBERTS ADDRESS [address] [facility] [facility] [address] DATE OF 1930 AGE 89 SSN# [id number] GENDER female MARITAL STATUS RACE unknown race ADMIT FROM 02 - [facility] PRE-HOSPITAL LIVING SETTING 01 - Home (private home/apt. board/care, assisted living, half-way, transitional living) HOME TYPE AND DETAILS Type of home: single family house # of levels in the residence: 1 # of steps to enter the residence: 0 # of steps within the residence: 0 PRE-HOSPITAL LIVING WITH Alone FAMILY SUPPORT Yes PRIMARY FAMILY CONTACT NAME SHANTANU ROBERTS PRIMARY FAMILY CONTACT PHONE PRIMARY FAMILY CONTACT RELATIONSHIP DAUGHTER PHONE PRIMARY FAMILY CONTACT ON ADM.? no IS PRIMARY FAMILY CONTACT AUTH. REP.? no 1ST EMERGENCY CONTACT SHANTANU ROBERTS 1ST CONTACT PHONE 1ST CONTACT RELATIONSHIP DAUGHTER PHONE 1ST CONTACT ON ADM. no IS 1ST CONTACT AUTH. REP.? no PHONE 2ND CONTACT ON ADM.? no PATIENT EMPLOYMENT STATUS Retired (for age) PATIENT EMPLOYER No Employer PAYOR INFORMATION: 1ST PAYOR NAME MEDICARE 1ST PAYOR PHONE 1ST PAYOR INJURY/ILLNESS DUE TO ACCIDENT? No ANOTHER [employer] RESPONSIBLE? No PRIMARY REHAB/ACUTE DIAGNOSIS: LEFT HIP FRACTURE REHAB IMPAIRMENT CATEGORY (SHAKA): 07 Fracture of LE (FracLE) MEETS 60% rule AFFECTED EXTREMITIES: LLE PRIMARY DIAGNOSIS-RELATED SURGERIES: LEFT HIP HEMIARTHROPLASTY SUMMARY OF ACUTE HOSPITALIZATION: Pt. is a 89 yo Right-handed female of unknown race. On 09/21/2020 she was admitted to [facility] with diagnosis LEFT HIP FRACTURE. Her impairment category is Orthopaedic Disorders 08 - Unilateral Hip Fracture (08.11). Pre-morbidly, Pt. was independent/mod-I in Locomotion, Safety Awareness, Balance, and Endurance; and she had good Sphincter Control and Transfers Control. Currently, she has deficits of Balance, Safety Awareness, Locomotion, Sphincter Control, Self-Care, C ommunication, Endurance, and Transfers Control. Pt. is now referred to [facility] for acute in-patient rehabilitation in order to maximize patient's functional independence in activities of daily living, strength, ROM, and mobi lity. Patient has realistic goal of being discharged at assistance level 7-Ind to reside at Home with Pt s elf. Elvi Roberts is a 89 year -old female that lives indepently at home in a single story house. She fell down at home after she lost her balance while she was walking. After falling she managed to jasmin to get to the phone to call her son who brought her to the emergency room. She was evaluated, and admitted to the hospital with dx of hip fracture. She has always done all of her own daily livings by her self. The patient would most definitely benefit from acute inpatient patient to come to acute inpatient rehab for approximately 7-10 days in order to return to her prior level of care. She is now being transferred to [facility] rehabilitation and is medically stable with relatively stable labs. She is now medically stable but in need of 24 hour nursing, doctor supervision and oversight while receiving active and participate in 3 hours of therapy a day/15 hours per week and receive care with intensive interdisciplinary approach. COVID-19 screening performed; spoke with patient via phone. Patient denies new onset of fever, cough, difficulty breathing, sore throat, body aches and non-allergy nasal congestion in the past 24 hours. Patient denies travel outside of [place] in the past 14 days. Patient denies any contact with someone who has a confirmed diagnosis of or is under investigation for COVID-19 in the past 14 days. Patient has been tested negative for COVID- 19. 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 INSOMNIA OSTEOPOROSIS PAST SURGICAL HISTORY: CATARACT SURGERY EYELID SURGERY TONSILLECTOMY CHOLECYSTECTOMY APPENDECTOMY HEMORRHOID SURGERY HYSTERECTOMY PARTIAL COLECTOMY ANKLE SURGERY ON LEFT ANKLE MEDICATION ALLERGIES: CODEINE PENICILLIN SULFA ENVIRONMENTAL ALLERGIES: - Substance Allergies None Known - Other Allergies None Known CODE STATUS: Full code WEIGHT/HEIGHT/BMI: WEIGHT 157 lbs HEIGHT 5' 8" BMI 23.9 DIET: - Diet Type Regular - Diet - Solid Texture Regular - Diet - Liquid Texture Regular - Tube Feed N/A REVIEW OF SYSTEMS: - Gen Alert and awake Lying in bed No apparent distress Oriented to: person, time, and place - Vital Signs Temperature: 97.8 F SBP/DBP: 137/61 Pulse: 77 Resp: 20 Vital signs stable, afebrile - CVS RRR VITAL SIGNS Temperature: 97.8 F SBP/DBP: 137/61 Pulse: 77 Resp: 20 Vital signs stable, afebrile MEDICATIONS/TREATMENT: Other- See attached MAR (Medication Administration Record). CURRENT SPHINCTER CONTROL: Pre-hospital bladder status: unspecified # of bladder accidents in the last 7 days prior to screenin Pre-hospital bowel status: unspecified # of bowel accidents in the last 7 days prior to screenin Last Bowel Movement Date: 09/24/2020 CURRENT LOCOMOTION STATUS: distance walked 2 SMALL SIDE STEPS W WALKER DETAILED CURRENT FUNCTIONAL STATUS: - Bladder accident frequency: 7-Ind - No accidents in the past 7 days - Bowel accident frequency: 7-Ind - No accidents in the past 7 days - Walking score based on distance walked: 0(N/A) score based on distance walked: 1(<=50ft) - Wheelchair score based on distance traveled: 0(N/A) QI SCORES: - Self-Care A. Eating 03-Partial/moderate assistance B. Oral hygiene 02-Substantial/maximal assistance C. Toileting hygiene 02-Substantial/maximal assistance E. Shower/bathe self 02-Substantial/maximal assistance F. Upper body dressing 02-Substantial/maximal assistance G. Lower body dressing 02-Substantial/maximal assistance H. Putting on/taking off footwear 88-Not attempted due to medical condition or safety concerns - Mobility A. Roll left and right 03-Partial/moderate assistance B. Sit to lying 02-Substantial/maximal assistance C. Lying to sitting on side of bed 02-Substantial/maximal assistance D. Sit to stand 02-Substantial/maximal assistance E. Chair/ill-rd-dgyym transfer 02-Substantial/maximal assistance F. Toilet transfer 02-Substantial/maximal assistance G. Car transfer 88-Not attempted due to medical condition or safety concerns I. Walk 10 feet 88-Not attempted due to medical condition or safety concerns J. Walk 50 feet with two turns 88-Not attempted due to medical condition or safety concerns K. Walk 150 feet 88-Not attempted due to medical condition or safety concerns L. Walking 10 feet on uneven surfaces 88-Not attempted due to medical condition or safety concerns M. 1 step (curb) 88-Not attempted due to medical condition or safety concerns N. 4 steps 88-Not attempted due to medical condition or safety concerns O. 12 steps 88-Not attempted due to medical condition or safety concerns P. Picking up object 88-Not attempted due to medical condition or safety concerns R. Wheel 50 feet with two turns 88-Not attempted due to medical condition or safety concerns S. Wheel 150 feet 88-Not attempted due to medical condition or safety concerns - Bladder and Bowel Bladder continence Bowel continence - Endurance Good - Balance Good - Safety Awareness Good CURRENT FUNC. DEFICITS: Self-Care and Mobility CURRENT / PREVIOUS ASSISTIVE DEVICES: Rolling Walker HISTORY OF FALLS. HAS THE PATIENT HAD TWO OR MORE FALLS IN THE PAST YEAR OR ANY FALL WITH INJURY IN T HE PAST YEAR?: No PRIOR SURGERY. DID THE PATIENT HAVE MAJOR SURGERY DURING THE 100 DAYS PRIOR TO ADMISSION?: No THERAPY NOTES FROM ACUTE CARE: Attached. SPECIAL NEEDS: - Safety Concerns Skin breakdown precautions needed due to skin breakdown risk PRECAUTIONS: - Anterior Hip Precaution No abduction No active extension No adduction across midline No external rotation No hip flexion >90 degrees No internal rotation - Posterior Hip Precaution No adduction across midline No external rotation No hip flexion >90 degrees No internal rotation No wheel chair propulsion - Weight Bearing Precaution WBAT left LE PATIENT NEEDS ACTIVE AND ONGOING THERAPEUTIC INTERVENTION OF MULTIPLE THERAPY DISCIPLINES, INCLUDING: - Dietary and Nutrition Adequate Nutrition. Nutritional Education. Nutritional Supplements. PATIENT NEEDS CLOSE MEDICAL SUPERVISION BY A REHABILITATION PHYSICIAN FOR: Coordination of Treatment Team PATIENT REQUIRES 24X7 REHAB NURSING FOR MEDICAL AND FUNCTIONAL MGT. OF THE FOLLOWING DEFICITS: Disease Management Medication Management Patient/Family Education Providing Safe Environment PATIENT REQUIRES INTENSIVE, COORDINATED INTERDISCIPLINARY APPROACH TO REHAB: Arranging Home Equipment/Services Discharge Planning Family Intervention/Training Publications Inspector/Case Management PATIENT REHAB POTENTIAL: Gonzalez ROBERTS is able and expected to receive 3 hours of individualized therapy daily on at least 5 of every 7 days Gonzalez MADERAs prognosis for significant practical improvement within a reasonable period of time a ppears Good Expected level of measurable improvement will be of a practical value to Gonzalez MADERAs functional capacity or adaptations to impairments Has a viable Discharge Plan Medically appropriate; condition is sufficiently stable to participate in intensive rehab program DISCHARGE PLAN: - Estimated Length of Stay (days) 14. - Consensus on plan Discharge plan has been discussed with primary caregiver. Patient/Family is in agreement with the chase n. Primary caregiver is in agreement with the plan. - Patient/Family Goals Return home independently. - Planned Living Setting Upon Discharge Home, to live alone. Transitional Living. Primary caregiver: Pt self. RECOMMENDED CARE LEVEL: IRF RECOMMENDATION DETAILS: Recommended Admission to Comprehensive Rehabilitation Program to Increase Functional [place] SCREENER'S COMPLETENESS CONFIRMATION: - Screening Confirmation The patient data collection on this preadmission screening form is finished PHYSICIANS REVIEW AND ADMISSION DETERMINATION Admit - Based on my review of the Pre-Admission Screening results, in my medical judgment and experie nce, I concur with the findings and recommend admission to [facility], as this patient requires an IRF level of care. SIGNATURE PANEL: [employer] Associate - [electronically] signed by Pascual Nielson on 09/24/2020 at 16:38 ([employer]) [employer] Associate - [electronically] signed by Guillermo Grullon PT on 09/24/2020 at 16:43 ([employer]) Physician Reviewer - [electronically] signed by Dr. Shukri Oconnor M.D. on 09/24/2020 at 17:24 ([employer] )
[2020-09-25] MEDS ORDERED: CETIRIZINE HCL 5 MG TABLET PO PRN (10:42)
[2020-09-25] MEDS ORDERED: DOCUSATE NA/SENNA CONC 1 TAB PO PRN (10:45)
[2020-09-25] MEDS ORDERED: MAGNESIUM HYDROXIDE 8% 30 ML PO PRN (10:49)
[2020-09-25] MEDS: TRAMADOL HCL 50 MG TAB PO PRN ×2 (12:41→18:20)
[2020-09-25 13:34] LABS: Urine Appearance CLEAR; Urine Bilirubin NEGATIVE (NEG); Urine Blood NEGATIVE (NEG); Urine Color YELLOW; Urine Glucose NEGATIVE (NEG); Urine Protein NEGATIVE (NEG); Urine Urobilinogen 0.2 mg/dL (0.2-1.0)
[2020-09-25 14:10] LABS: Urine Bacteria 20-50 /HPF (<20); Urine RBC <5 /HPF (NONE SEEN)
[2020-09-25 14:11] LABS: Urine Mucus 1+ /HPF (NONE SEEN)
--- NOTE | 2020-09-25 17:40 | R.HP ---
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 board/care, assisted living, fci, transitional living) PRE-HOSPITAL LIVING WITH Alone ENCOUNTER PHYSICIAN: Dr. Shukri Oconnor M.D. 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 is a 89 yo Right-handed female of unknown race. On 09/21/2020 she was admitted to [facility] with diagnosis LEFT HIP FRACTURE. Her impairment category is Orthopaedic Disorders 08 - Unilateral Hip Fracture (08.11). Pre-morbidly, Pt. was independent/mod-I in Locomotion, Safety Awareness, Balance, and Endurance; and she had good Sphincter Control and Transfers Control. Currently, she has deficits of Balance, Safety Awareness, Locomotion, Sphincter Control, Self-Care, C ommunication, Endurance, and Transfers Control. Pt. is now referred to [facility] for acute in-patient rehabilitation in order to maximize patient's functional independence in activities of daily living, strength, ROM, and mobi lity. Patient has realistic goal of being discharged at assistance level 7-Ind to reside at Home with Pt s elfIvan Roberts is a 89 year -old female that lives indepently at home in a single story house. She fell down at home after she lost her balance while she was walking. After falling she managed to jasmin to get to the phone to call her son who brought her to the emergency room. She was evaluated, and admitted to the hospital with dx of hip fracture. She has always done all of her own daily livings by her self. The patient would most definitely benefit from acute inpatient patient to come to acute inpatient rehab for approximately 7-10 days in order to return to her prior level of care. She is now being transferred to [facility] Inpatient rehabilitation and is medically stable with relatively stable labs. She is now medically stable but in need of 24 hour nursing, doctor supervision and oversight while receiving active and participate in 3 hours of therapy a day/15 hours per week and receive care with intensive interdisciplinary approach. COVID-19 screening performed; spoke with patient via phone. Patient denies new onset of fever, cough, difficulty breathing, sore throat, body aches and non-allergy nasal congestion in the past 24 hours. Patient denies travel outside of [place] in the past 14 days. Patient denies any contact with someone who has a confirmed diagnosis of or is under investigation for COVID-19 in the past 14 days. Patient has been tested negative for COVID- 19. 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 INSOMNIA OSTEOPOROSIS PAST SURGICAL HISTORY: CATARACT SURGERY EYELID SURGERY TONSILLECTOMY CHOLECYSTECTOMY APPENDECTOMY HEMORRHOID SURGERY HYSTERECTOMY PARTIAL COLECTOMY ANKLE SURGERY ON LEFT ANKLE SOCIAL HISTORY: - Home Living Alone REVIEW OF SYSTEMS: - Gen No Chills Fatigue No Fever - Eyes No Double Vision No itchiness - ENMT No Difficulty Swallowing - CVS No Chest Discomfort No Chest Pain No Fatigue No Weight Gain - Resp No Cough No Shortness of Breath - GI Continent No Abdominal Pain No Constipation No Diarrhea - Continent No Kidney Pain No Painful Urination No Urinary Urgency - MSK No Joint Pain Muscle Cramps Stiffness - Skin No Itching No Rash No Suspicious Lesions - Neuro Coordination Difficulty No Difficulty with Concentration Memory Loss No Seizures Weakness - Psych No Anxiety No Depression No HIV Exposure No Persistent Infections No Seasonal Allergies - Endo No Cold/Heat Intolerance No Excessive Hunger No Excessive Thirst No Excessive Urination PHYSICAL EXAM - Gen Alert and awake Lying in bed No apparent distress Oriented to: person, time, and place - Skin Left hip incision is intact. No tingling - Eyes No abnormalities - ENMT No abnormalities - Neck No stiffness - CVS RRR - Chest Clear - Resp No wheezing - Abd + bowel sounds - GI Soft Deferred - Continent - Ext Left hip surgical site has good hemostasis. - MSK 4+/5 weakness in left lower extremity - Neuro 4/5 strength left lower extremities. - Psych No abnormalities VITAL SIGNS Temperature: 98.6 F SBP/DBP: 137/140/59 Pulse: 68 Resp: 16 NURSING: - Shower allowing shower - Skin care per protocol PRECAUTIONS: - Anterior Hip Precaution No abduction No active extension No adduction across midline No external rotation No hip flexion >90 degrees No internal rotation - Posterior Hip Precaution No adduction across midline No external rotation No hip flexion >90 degrees No internal rotation No wheel chair propulsion - Weight Bearing Precaution WBAT left LE ACTIVITIES OOB only with supervision QI SCORES: - Self-Care A. Eating 03-Partial/moderate assistance B. Oral hygiene 02-Substantial/maximal assistance C. Toileting hygiene 02-Substantial/maximal assistance E. Shower/bathe self 02-Substantial/maximal assistance F. Upper body dressing 02-Substantial/maximal assistance G. Lower body dressing 02-Substantial/maximal assistance H. Putting on/taking off footwear 88-Not attempted due to medical condition or safety concerns - Mobility A. Roll left and right 03-Partial/moderate assistance B. Sit to lying 02-Substantial/maximal assistance C. Lying to sitting on side of bed 02-Substantial/maximal assistance D. Sit to stand 02-Substantial/maximal assistance E. Chair/sal-bu-ywgnq transfer 02-Substantial/maximal assistance F. Toilet transfer 02-Substantial/maximal assistance G. Car transfer 88-Not attempted due to medical condition or safety concerns I. Walk 10 feet 88-Not attempted due to medical condition or safety concerns J. Walk 50 feet with two turns 88-Not attempted due to medical condition or safety concerns K. Walk 150 feet 88-Not attempted due to medical condition or safety concerns L. Walking 10 feet on uneven surfaces 88-Not attempted due to medical condition or safety concerns M. 1 step (curb) 88-Not attempted due to medical condition or safety concerns N. 4 steps 88-Not attempted due to medical condition or safety concerns O. 12 steps 88-Not attempted due to medical condition or safety concerns P. Picking up object 88-Not attempted due to medical condition or safety concerns R. Wheel 50 feet with two turns 88-Not attempted due to medical condition or safety concerns S. Wheel 150 feet 88-Not attempted due to medical condition or safety concerns - Bladder and Bowel Bladder continence Bowel continence - Endurance Good - Balance Good - Safety Awareness Good CURRENT FUNC. DEFICITS: Self-Care and Mobility MEDICATIONS: - Other See attached MAR (Medication Administration Record) ASSESSMENT: Pt. is a 89 yo Right-handed female of unknown race.On 09/21/2020 she was admitted to [facility] with diagnosis LEFT HIP FRACTURE.Her impairment category is Orthopaedic Disorders 08 - Unila teral Hip Fracture (08.11).Pre-morbidly, Pt. was independent/mod-I in Locomotion, Safety Awareness, B alance, and Endurance; and she had good Sphincter Control and Transfers Control.Currently, she has de ficits of Balance, Safety Awareness, Locomotion, Sphincter Control, Self-Care, Communication, Enduran ce, and Transfers Control.Pt. is now referred to [facility] for acute in-patie nt rehabilitation in order to maximize patient's functional independence in activities of daily livin g, strength, ROM, and mobility.- Rehab Goal Patient has realistic goal of being discharged at assistance level 7-Ind to reside at Home with Pt s elf. Elvi Roberts is a 89 year -old female that lives indepently at home in a single story house. She fell down at home after she lost her balance while she was walking. After falling she managed to jasmin to get to the phone to call her son who brought her to the emergency room. She was evaluated, and admitted to the hospital with dx of hip fracture. She has always done all of her own daily livings by her self. The patient would most definitely benefit from acute inpatient patient to come to acute inpatient rehab for approximately 7-10 days in order to return to her prior level of care. She is now being transferred to [facility] Inpatient rehabilitation and is medically stable with relatively stable labs. She is now medically stable but in need of 24 hour nursing, doctor supervision and oversight while receiving active and participate in 3 hours of therapy a day/15 hours per week and receive care with intensive interdisciplinary approach. COVID-19 screening performed; spoke with patient via phone. Patient denies new onset of fever, cough, difficulty breathing, sore throat, body aches and non-allergy nasal congestion in the past 24 hours. Patient denies travel outside of [place] in the past 14 days. Patient denies any contact with someone who has a confirmed diagnosis of or is under investigation for COVID-19 in the past 14 days. Patient has been tested negative for COVID- 19.REHAB PLAN: - Physical Therapy Decreased range of motion - to improve, our physical therapists will perform initial evaluation of pt 's status upon admission and devise an individualized program for increasing patient's Range of Motio n. Inability to transfer - to improve, our physical therapists will perform initial evaluation of pt's s tatus upon admission and devise an individualized program for Bed mobility Need for home safety evaluation - to improve, our physical therapists will perform initial evaluation of pt's status upon admission and devise an individualized program for Home Evaluation Need in caregiver upon discharge - to improve, our physical therapists will perform initial evaluatio n of pt's status upon admission and devise an individualized program for Caregiver Training New precaution - to improve, our physical therapists will perform initial evaluation of pt's status u augustine admission and devise an individualized program for Patient precaution education Poor balance - to improve, our physical therapists will perform initial evaluation of pt's status upo n admission and devise an individualized program for Balance Training Poor endurance - to improve, our physical therapists will perform initial evaluation of pt's status u augustine admission and devise an individualized program for Endurance Training Achieving independence - to improve, our physical therapists will perform initial evaluation of pt's status upon admission and devise an individualized program for Community Reintegration Activities - Occupational Therapy ADL deficits - to improve, our occupation therapists will perform initial evaluation of pt's status u augustine admission and devise an individualized program for Bathing, Bed mobility, Community Reintegration , Cooking, Dressing, Eating, Fine Motor Skills, Grooming, Homemaking, Kitchen Mobility, Laundry, Sola ent Education, Safety Awareness, Splinting - Positioning, Transfers(Toilet, Tub, Shower), and Wheel C hair Management Need for auto care center manager - to improve, our occupation therapists will perform initial evaluation of pt's s tatus upon admission and devise an individualized program for Caregiver Training MEDICAL PLAN: - Anterior Hip Precaution No abduction No active extension No adduction across midline No external rotation No hip flexion >90 degrees No internal rotation - Diet - Liquid Texture Start Regular - Tube Feed Start N/A - Diet Type Start Regular - Posterior Hip Precaution No adduction across midline No external rotation No hip flexion >90 degrees No internal rotation No wheel chair propulsion - Weight Bearing Precaution WBAT left LE - Skin care per protocol - Other See attached MAR (Medication Administration Record) - Diet - Solid Texture Regular - Shower shower DISCHARGE PLAN: - Estimated Length of Stay (days) 14. - Consensus on plan Discharge plan has been discussed with primary caregiver. Patient/Family is in agreement with the chase n. Primary caregiver is in agreement with the plan. - Patient/Family Goals Return home independently. - Planned Living Setting Upon Discharge Home, to live alone. Transitional Living. Primary caregiver: Pt self. 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
--- NOTE | 2020-09-25 17:42 | PAPE ---
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 Shukri Oconnor M.D. ADMISSION DIAGNOSIS: LEFT HIP FRACTURE POST-ADMISSION FUNCTIONAL/MEDICAL STATUS: - Bladder Same accident frequency: 7-Ind - No accidents in the past 7 days - Bowel Same accident frequency: 7-Ind - No accidents in the past 7 days - Walking Same score based on distance walked: 0(N/A) Same score based on distance walked: 1(<=50ft) - Wheelchair Same score based on distance traveled: 0(N/A) STATUS CHANGE EVALUATION: No change in Functional or Medical Status is identified compared with Pre-Admission screening. PATIENT NEEDS CLOSE MEDICAL SUPERVISION BY A REHABILITATION PHYSICIAN FOR: Coordination of Treatment Team PATIENT REQUIRES 24X7 REHAB NURSING FOR MEDICAL AND FUNCTIONAL MGT. OF THE FOLLOWING DEFICITS: Disease Management Medication Management Patient/Family Education Providing Safe Environment PATIENT REQUIRES INTENSIVE, COORDINATED INTERDISCIPLINARY APPROACH TO REHAB: Arranging Home Equipment/Services Discharge Planning Family Intervention/Training It Field Technician/Case Management LIST OF IDENTIFIED AND POTENTIAL PROBLEMS: Alteration in leisure activities Bladder, Incontinence Bowel, Incontinence Infection, Actual or Potential Mobility Impaired Pain, Alteration in Comfort Self Care Deficit Skin Integrity, Actual or Potential Urinary Tract Infection (UTI), Actual or Potential PATIENT COULD BE AT RISK FOR COMPLICATIONS FROM ADVERSE MEDICAL CONDITIONS DUE TO HIS/HER COMORBIDITI ES AND THE RIGORS OF THE INTENSIVE REHABILLITATION PROGRAM. METHODS OR INTERVENTIONS TO AVOID COMPLIC ATIONS INCLUDE: - Infection Clinical staff to assess and manage the signs and symptoms of infection including fever, redness, war mth, etc. - Urinary Tract Infection - Falls Patient will be evaluated for Fall Precautions and will be placed on Fall Precautions as indicated pe r protocol. - Skin Breakdown Nursing will assess skin daily using assessment tool and will place on Skin Breakdown Precautions as indicated per protocol. - Pain Clinical staff may employ non-medication methods such as massage, distraction, decrease stimulus, etc . as needed. Clinical staff will assess patient's pain level every shift per protocol to assess and e nsure pain management effectiveness. Medications will be given and the pain level re-assessed. PRELIMINARY PLAN OF CARE: - Physical Therapy Patient needs Physical Therapy for a daily minimum of 1.5 hours at least 5 out of 7 days, to improve: Mobility, Strengthening, Transfers, Stretching, ROM, Endurance, Ability to manage stairs, Gait, and Balance. - Speech Therapy Patient needs Speech Therapy for a daily minimum of 0.5 hours at least 5 out of 7 days, to improve: S wallowing, Cognition, Language Skills, and Compensatory Strategies. - Rehabilitation Nursing Patient requires 24x7 Rehabilitation Nursing for: Pain Issues, Identifying and preventing risk factor s, Monitoring and reporting current medical conditions, Assisting with ambulation and transfer, Hosea ting with all ADL-s, Teaching patients about disease process and medications, Family teaching, Provid ing safe environment, Bowel and Bladder Issues, Skin Integrity, and Medication Management. Patient needs It Field Technician and/or Case Management for: Discharge Planning, Arranging Home Equipmen t or Services, and Family Interventions. - Dietary and Nutrition Services Patient needs Dietary and Nutrition Services for: Adequate Nutrition, Nutritional Supplements, and Nu tritional Education. - Occupational Therapy Patient needs Occupational Therapy for a daily minimum of 1.5 hours at least 5 out of 7 days, to impr ove Activities of Daily Living, including: Eating, Grooming, Bathing, Dressing, Toileting, Toilet Tra nsfers, Community Reintegration, Higher functional activities, Adaptive Equipment, Splinting, Househo ld Tasks, and Other activities as determined. QI SCORES: - Self-Care A. Eating 03-Partial/moderate assistance B. Oral hygiene 02-Substantial/maximal assistance C. Toileting hygiene 02-Substantial/maximal assistance E. Shower/bathe self 02-Substantial/maximal assistance F. Upper body dressing 02-Substantial/maximal assistance G. Lower body dressing 02-Substantial/maximal assistance H. Putting on/taking off footwear 88-Not attempted due to medical condition or safety concerns - Mobility A. Roll left and right 03-Partial/moderate assistance B. Sit to lying 02-Substantial/maximal assistance C. Lying to sitting on side of bed 02-Substantial/maximal assistance D. Sit to stand 02-Substantial/maximal assistance E. Chair/pak-wc-paecy transfer 02-Substantial/maximal assistance F. Toilet transfer 02-Substantial/maximal assistance G. Car transfer 88-Not attempted due to medical condition or safety concerns I. Walk 10 feet 88-Not attempted due to medical condition or safety concerns J. Walk 50 feet with two turns 88-Not attempted due to medical condition or safety concerns K. Walk 150 feet 88-Not attempted due to medical condition or safety concerns L. Walking 10 feet on uneven surfaces 88-Not attempted due to medical condition or safety concerns M. 1 step (curb) 88-Not attempted due to medical condition or safety concerns N. 4 steps 88-Not attempted due to medical condition or safety concerns O. 12 steps 88-Not attempted due to medical condition or safety concerns P. Picking up object 88-Not attempted due to medical condition or safety concerns R. Wheel 50 feet with two turns 88-Not attempted due to medical condition or safety concerns S. Wheel 150 feet 88-Not attempted due to medical condition or safety concerns - Bladder and Bowel Bladder continence Bowel continence - Endurance Good - Balance Good - Safety Awareness Good POTENTIAL FUNCTIONAL GOALS FOR PATIENT TO ACHIEVE BY DISCHARGE: - Safety Precaution Patient will remain free from falls or injury at time of discharge. - Bed Mobility Patient will perform bed mobility at 4-Reta level of assistance. - Transfers Patient will complete transfers from bed to chair at 4-Reta level of assistance. - Mobility Patient will ambulate 150 ft with 4-Reta level of assistance with RW. PATIENT REHAB POTENTIAL Gonzalez DU is able and expected to receive 3 hours of individualized therapy daily on at least 5 of every 7 days Gonzalez MADERAs prognosis for significant practical improvement within a reasonable period of time a ppears Good Expected level of measurable improvement will be of a practical value to Gonzalez MADERAs functional capacity or adaptations to impairments Has a viable Discharge Plan Medically appropriate; condition is sufficiently stable to participate in intensive rehab program DISCHARGE PLAN: - Estimated Length of Stay (days) 14. - Consensus on plan Discharge plan has been discussed with primary caregiver. Patient/Family is in agreement with the chase n. Primary caregiver is in agreement with the plan. - Patient/Family Goals Return home independently. - Planned Living Setting Upon Discharge Home, to live alone. Transitional Living. Primary caregiver: Pt self. CONCLUSION ON REHABILITATION NECESSITY: I have evaluated patient's pre-admission functional status and, comparing it to the patient's post-ad mission functional status now, I conclude that the pre-admission assessment was accurate. Patient's c ondition on admission supports the medical necessity of admission to [facility]. It is safe to proceed with patient's therapy program. 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
[2020-09-25] MEDS: GABAPENTIN 100 MG CAP PO SCH (19:29)
[2020-09-25] MEDS: TRAZODONE 50 MG TABLET PO SCH (19:29)
[2020-09-25] MEDS: MAGNESIUM OXIDE 400 MG TAB PO SCH (19:29)
[2020-09-25] MEDS: BENAZEPRIL 10 MG TAB PO SCH (19:29)
[2020-09-25] MEDS: FLUTICASONE 50MCG NASAL SPRAY NAS SCH (19:30)
[2020-09-26] MEDS: PANTOPRAZOLE 40MG TABLET PO SCH (06:43)
[2020-09-26] MEDS: ENOXAPARIN 40 MG/0.4 ML SQ SCH (06:44)
[2020-09-26] MEDS: FLUTICASONE 50MCG NASAL SPRAY NAS SCH ×2 (06:44→20:48)
[2020-09-26] MEDS: LEVOTHYROXINE SOD 0.075 MG TAB PO SCH (06:44)
[2020-09-26 06:47] LABS: Absolute Lymphocytes (CBC) 2.5 K/uL (0.7-4.9); Basophils % 0.4 % (0-1.3); Hematocrit 29.3 % (36.0-45.0); Lymphocytes % 25.2 % (15.3-44.8); MPV 9.4 fL (7.6-11.3); RBC Red Blood Cell Count 3.12 M/uL (3.86-4.86)
[2020-09-26 07:11] LABS: Albumin 2.4 g/dL (3.4-5.0); Magnesium 2.3 mg/dL (1.8-2.4); Potassium 3.9 mmol/L (3.5-5.1); Prealbumin 12.8 mg/dL (20-40)
[2020-09-26] MEDS: TRAMADOL HCL 50 MG TAB PO PRN ×3 (07:53→17:42)
[2020-09-26] MEDS: GABAPENTIN 100 MG CAP PO SCH ×2 (07:55→20:47)
[2020-09-26] MEDS: BENAZEPRIL 10 MG TAB PO SCH ×2 (07:55→20:47)
[2020-09-26] MEDS: AMLODIPINE 5 MG TAB PO SCH (07:55)
[2020-09-26] MEDS: MAGNESIUM OXIDE 400 MG TAB PO SCH ×2 (07:56→20:47)
--- NOTE | 2020-09-26 09:40 | P.RH.PN ---
Estimated Length of Stay: 14 Expected Discharge Date: 10/08/20 Discharge Disposition Plan: Home Family Support: Yes [employer] Goal: Mobility, Transfers, Self Care Vital Signs: Last Vital Signs Temp 98.3 F 09/26/20 08:00 Pulse 68 09/26/20 08:00 Resp 16 09/26/20 08:53 BP 151/68 H 09/26/20 08:00 Pulse Ox 93 09/26/20 08:53 Laboratory: Laboratory Last Values WBC 9.80 K/uL (4.3-10.9) D 09/26/20 06:12 RBC 3.12 M/uL (3.86-4.86) L 09/26/20 06:12 Hgb 10.2 g/dL (12.0-15.0) L 09/26/20 06:12 Hct 29.3 % (36.0-45.0) L 09/26/20 06:12 MCV 94.0 fL (80-100) 09/26/20 06:12 MCH 32.8 pg (27.0-35.0) 09/26/20 06:12 MCHC 34.9 g/dL (32.0-36.0) 09/26/20 06:12 RDW 13.6 % (12.1-15.2) 09/26/20 06:12 Plt Count 202 K/uL (152-406) 09/26/20 06:12 MPV 9.4 fL (7.6-11.3) 09/26/20 06:12 Neutrophils % 59.7 % (41.7-73.7) 09/26/20 06:12 Lymphocytes % 25.2 % (15.3-44.8) 09/26/20 06:12 Monocytes % 9.7 % (3.3-12.3) 09/26/20 06:12 Eosinophils % 5.0 % (0-4.4) H 09/26/20 06:12 Basophils % 0.4 % (0-1.3) 09/26/20 06:12 Absolute Neutrophils 5.8 K/uL (1.8-8.0) 09/26/20 06:12 Absolute Lymphocytes 2.5 K/uL (0.7-4.9) 09/26/20 06:12 Absolute Monocytes 0.9 K/uL (0.1-1.3) 09/26/20 06:12 Absolute Eosinophils 0.5 K/uL (0-0.5) 09/26/20 06:12 Absolute Basophils 0.0 K/uL (0-0.5) 09/26/20 06:12 Sodium 139 mmol/L (136-145) 09/26/20 06:12 Potassium 3.9 mmol/L (3.5-5.1) 09/26/20 06:12 Chloride 106 mmol/L (98-107) 09/26/20 06:12 Carbon Dioxide 27 mmol/L (21-32) 09/26/20 06:12 BUN 23 mg/dL (7-18) H 09/26/20 06:12 Creatinine 0.86 mg/dL (0.55-1.3) 09/26/20 06:12 Estimated GFR 62 mL/min (=/>90) L 09/26/20 06:12 Glucose 101 mg/dL (74-106) 09/26/20 06:12 Calcium 8.4 mg/dL (8.5-10.1) L 09/26/20 06:12 Magnesium 2.3 mg/dL (1.8-2.4) 09/26/20 06:12 Albumin 2.4 g/dL (3.4-5.0) L 09/26/20 06:12 Prealbumin 12.8 mg/dL (20-40) L 09/26/20 06:12 Urine Color Yellow 09/25/20 12:30 Urine Appearance Clear 09/25/20 12:30 Urine pH 6.0 (5.0-7.0) 09/25/20 12:30 Ur Specific [place] 1.020 (1.005-1.030) 09/25/20 12:30 Glucose (UA)(Auto) Negative (NEG) 09/25/20 12:30 Urine Ketones Negative (NEG) 09/25/20 12:30 Urine Blood Negative (NEG) 09/25/20 12:30 Urine Nitrite Negative (NEG) 09/25/20 12:30 Urine Bilirubin Negative (NEG) 09/25/20 12:30 Urine Urobilinogen 0.2 mg/dL (0.2-1.0) 09/25/20 12:30 Ur Leukocyte Esterase 1+ (NEG) H 09/25/20 12:30 Urine RBC <5 /HPF (NONE SEEN) 09/25/20 12:30 Urine WBC 10-20 /HPF (<5) H 09/25/20 12:30 Ur Squamous Epith Cells 5-10 /HPF (NONE SEEN) H 09/25/20 12:30 Urine Bacteria 20-50 /HPF (<20) H 09/25/20 12:30 Urine Mucus 1+ /HPF (NONE SEEN) 09/25/20 12:30 Urine Culture Reflexed Not needed 09/25/20 12:30 Urine Total Protein Negative (NEG) 09/25/20 12:30 Weight: 164 lb 8 oz Wound Present: No Closed Surgical Incision Present: Yes Negative Pressure Wound Therapy Present: No Physician Update: Max assistance with bed mobility and transfers. She appears to have difficulty hearing but may also have cognitive deficity. She will be evaluated by speech therapy. She has very good family support. Low Hgb and prealbumin. Treat with hemocyte plus and promod. Functional Improvement: pt presents with Moderate strength deficits in the R LE and severe strength deficits in the L LE. pt exhibits poor balance and stability during standing and functional transfers. pt c/o pain in the R hip. pt exhibits poor trunk strength. pt presents with a fairly flat affect and is slow to respond and process information. pt experiences poor tolerance to functional activity due to pain, fatigue, weakness, impaired balance, SoB, confusion, and delayed processing. Summary: Patient's care plan and care home goals have been reviewed and revised as necessary. Please see the Rehabilitation Signature page for all necessary signatures.
[2020-09-26] MEDS: LIDOCAINE 4% PATCH TOP SCH (10:04)
[2020-09-26] MEDS ORDERED: BISACODYL 10 MG RECTAL SUPP PR PRN (13:27)
[2020-09-26] MEDS: ACETAMINOPHEN 500 MG TAB PO PRN (19:17)
[2020-09-26] MEDS: TRAZODONE 50 MG TABLET PO SCH (20:47)
[2020-09-27 05:31] VITALS: BMI 24.6
[2020-09-27] MEDS: ENOXAPARIN 40 MG/0.4 ML SQ SCH (06:56)
[2020-09-27] MEDS: FLUTICASONE 50MCG NASAL SPRAY NAS SCH ×2 (06:57→19:53)
[2020-09-27] MEDS: LIDOCAINE 4% PATCH TOP SCH (06:57)
[2020-09-27] MEDS: PANTOPRAZOLE 40MG TABLET PO SCH (06:57)
[2020-09-27] MEDS: LEVOTHYROXINE SOD 0.075 MG TAB PO SCH (06:57)
[2020-09-27] MEDS: AMLODIPINE 5 MG TAB PO SCH ×3 (07:31→19:52)
[2020-09-27] MEDS: BENAZEPRIL 10 MG TAB PO SCH ×2 (07:32→19:52)
[2020-09-27] MEDS: TRAMADOL HCL 50 MG TAB PO PRN ×3 (07:32→19:52)
[2020-09-27] MEDS: GABAPENTIN 100 MG CAP PO SCH ×2 (08:26→19:53)
[2020-09-27] MEDS: MAGNESIUM OXIDE 400 MG TAB PO SCH ×2 (08:26→19:53)
--- NOTE | 2020-09-27 10:42 | PN ---
Date of Progress Note: 09/26/2020 Subjective: The patient was seen this morning for followup. No new complaints or problems reported by the patient. She was lying in bed, not in distress. This morning, she asked me the same question that "I do not know what happened to me." I explained her 1 more time this is a 3rd time I had to e xplain it to her pertaining to the same questions that she is asking. Objective: Vital Signs: Reviewed. HEENT: Unremarkable. Lungs: Clear to auscultation. Heart: Sounds normal. Abdomen: Soft. Bowel sounds normal. No guarding, rigidity, tenderness, distention. Extremities: No leg edema. Impression: 1.Left hip fracture. 2.Hypertension. 3.Insomnia. 4.Osteoarthritis, multiple sites. Plan: We will continue current medication. Physical therapy to be provided under guidance of Dr. Man maldonado. Continue to monitor blood pressure. If necessary make adjustment on antihypertensive medica tion. Stool softener will be given per order. We will continue DVT prophylaxis per order. I will s ee her tomorrow for followup. HUBERT/MODL Voice ID: [id number] Report ID: [id number]
--- NOTE | 2020-09-27 11:48 | PN ---
Date of Progress Note: 09/27/2020 Subjective: The patient was seen this morning for followup. She was sitting in the wheelchair. Looking a lot better. Feeling a lot better. Denies any complaints. Objective: Vital Signs: Reviewed. HEENT: Unremarkable. Lungs: Clear to auscultation. No wheezing. No rales. Heart: Sounds normal. Abdomen: Soft. Bowel sounds normal. No guarding, rigidity, tenderness, or distention. Extremities: No leg edema. Impression: 1. Left hip fracture, status post surgery. 2. Hypertension. 3. Chronic constipation. 4. Insomnia. 5. Osteoarthritis, multiple sites. Plan: We will continue current antihypertensive medication. Her blood pressure was elevated this morning and she is taking amlodipine 5 mg once a day and benazepril 10 mg 2 times a day. We will increase the dose of amlodipine to 5 mg 2 times a day as well. Continue current DVT prophylaxis. Continue current pain medications and physical therapy to be provided under guidance of Dr. Oconnor. I will see her tomorrow for followup. HUBERT/CURTIS Voice ID: [id number] Report ID: [id number] MTDD
[2020-09-27] MEDS: TRAZODONE 50 MG TABLET PO SCH (19:52)
[2020-09-27] MEDS ORDERED: DOCUSATE NA/SENNA CONC 1 TAB PO SCH (21:00)
[2020-09-28] MEDS: TRAMADOL HCL 50 MG TAB PO PRN (00:34)
[2020-09-28] MEDS: PANTOPRAZOLE 40MG TABLET PO SCH (06:52)
[2020-09-28] MEDS: LEVOTHYROXINE SOD 0.075 MG TAB PO SCH (06:52)
[2020-09-28] MEDS: ENOXAPARIN 40 MG/0.4 ML SQ SCH (07:02)
[2020-09-28] MEDS: FLUTICASONE 50MCG NASAL SPRAY NAS SCH ×2 (08:43→19:57)
[2020-09-28] MEDS: LIDOCAINE 4% PATCH TOP SCH (08:43)
[2020-09-28] MEDS: GABAPENTIN 100 MG CAP PO SCH ×2 (08:44→19:57)
[2020-09-28] MEDS: ACETAMINOPHEN 500 MG TAB PO PRN ×2 (08:44→19:57)
[2020-09-28] MEDS: AMLODIPINE 5 MG TAB PO SCH ×2 (08:44→19:56)
[2020-09-28] MEDS: BENAZEPRIL 10 MG TAB PO SCH ×2 (08:45→19:55)
[2020-09-28] MEDS: MAGNESIUM OXIDE 400 MG TAB PO SCH ×2 (08:45→19:57)
[2020-09-28] MEDS ORDERED: BISACODYL 10 MG RECTAL SUPP PR ONE (11:00)
[2020-09-28] MEDS: DOCUSATE NA/SENNA CONC 1 TAB PO SCH ×2 (11:07→19:57)
[2020-09-28] MEDS: CRANBERRY FRUIT EXTRACT 200 MG CAP PO SCH ×2 (11:07→19:56)
--- NOTE | 2020-09-28 11:58 | PN ---
Date of Progress Note: 09/28/2020 Subjective: The patient was seen this morning for followup. No new complaints or problems reported by the patient. Lying in bed, not in any distress. Objective: Vital Signs: Reviewed. HEENT: Unremarkable. Lungs: Clear to auscultation. Heart: Sounds normal. Abdomen: Soft. Bowel sounds normal. No guarding, rigidity, tenderness, or distention. Extremities: No leg edema. Impression: 1.Left hip fracture. 2.Constipation. 3.Hypertension. 4.Osteoarthritis, multiple sites. Plan: The patient feels a lot better today. She reports that she does not appear to show any confus ion today. She has not had a bowel movement. Her constipation problem is chronic, ongoing. We will go ahead and increase the dose of Senokot-S 2 tablets 2 times a day and give her Dulcolax rectal sup pository today. Continue current pain medication, current antihypertensive medication. We will see her tomorrow for followup. Blood pressure is under better control. HUBERT/MODL Voice ID: [id number] Report ID: [id number]
[2020-09-28] MEDS: TRAZODONE 50 MG TABLET PO SCH (19:57)
[2020-09-29] MEDS: ACETAMINOPHEN 500 MG TAB PO PRN (04:26)
[2020-09-29] MEDS: ENOXAPARIN 40 MG/0.4 ML SQ SCH (06:30)
[2020-09-29] MEDS: LEVOTHYROXINE SOD 0.075 MG TAB PO SCH (06:30)
[2020-09-29] MEDS: PANTOPRAZOLE 40MG TABLET PO SCH (06:30)
[2020-09-29] MEDS: TRAMADOL HCL 50 MG TAB PO PRN ×3 (06:47→19:35)
[2020-09-29] MEDS: AMLODIPINE 5 MG TAB PO SCH ×2 (06:48→19:34)
[2020-09-29] MEDS: BENAZEPRIL 10 MG TAB PO SCH ×2 (06:49→19:33)
[2020-09-29] MEDS: FLUTICASONE 50MCG NASAL SPRAY NAS SCH ×2 (06:49→19:32)
[2020-09-29] MEDS: CRANBERRY FRUIT EXTRACT 200 MG CAP PO SCH ×2 (07:54→19:31)
[2020-09-29] MEDS: GABAPENTIN 100 MG CAP PO SCH ×2 (07:54→19:34)
[2020-09-29] MEDS: MAGNESIUM OXIDE 400 MG TAB PO SCH ×2 (07:55→19:34)
[2020-09-29] MEDS: DOCUSATE NA/SENNA CONC 1 TAB PO SCH ×2 (07:55→19:34)
[2020-09-29] MEDS: LIDOCAINE 4% PATCH TOP SCH (09:01)
--- NOTE | 2020-09-29 11:28 | PN ---
Date of Progress Note: 09/23/2020 Subjective: Ms. Roberts is 89, was admitted because of a fall injury. Has a history of colon ca ncer, liver cancer, neuropathy, hypothyroidism and hypertension. She was cleared for surgery by Dr. Limon. She underwent a left hip hemiarthroplasty. Cardiac appiah, she did well. There were no arrhyth lay. No congestive heart failure. Hemodynamically stable. I would recommend continuing her present regimen and we will follow her on an as-needed basis. She did have initially second-degree AV block type 2 versus blocked PAC. I have not seen any significant arrhythmia postoperatively. I will be a vailable for questions if the need arises. MARY ANN/CURTIS Voice ID: [id number] Report ID: [id number]
[2020-09-29] MEDS ORDERED: TRAMADOL HCL 50 MG TAB PO ONE (13:31)
--- NOTE | 2020-09-29 18:07 | R.PN ---
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 Pt denied any Shortness of Breath. WBC 9.8, Hgb 10.2, prealbumin 12.8, calcium 8.4, UA 1+ esterase, 20-50 bacteria, 10-20 WBC. Ambulated 150' with a rolling walker and contact guard assistance. VITAL SIGNS Temperature: 98.6 F SBP/DBP: 180/75 Pulse: 64 Resp: 16 MEDICATION ALLERGIES: CODEINE PENICILLIN SULFA ENVIRONMENTAL ALLERGIES: - Substance Allergies None Known - Other Allergies None Known NURSING: - Shower allowing shower - Skin care per protocol PRECAUTIONS: - Anterior Hip Precaution No abduction No active extension No adduction across midline No external rotation No hip flexion >90 degrees No internal rotation - Posterior Hip Precaution No adduction across midline No external rotation No hip flexion >90 degrees No internal rotation No wheel chair propulsion - Weight Bearing Precaution WBAT left LE ACTIVITIES OOB only with supervision THERAPIES: - Dietary and Nutrition Adequate Nutrition. Nutritional Education. Nutritional Supplements. PHYSICAL EXAM - Gen Alert and awake Lying in bed No apparent distress Oriented to: person, time, and place - Skin Left hip incision is intact. No tingling - Eyes No abnormalities - ENMT No abnormalities - Neck No stiffness - CVS RRR - Chest Clear - Resp No wheezing - Abd + bowel sounds - GI Soft Deferred - Continent - Ext Left hip surgical site has good hemostasis. - MSK 4+/5 weakness in left lower extremity - Neuro 4/5 strength left lower extremities. - Psych No abnormalities ASSESSMENT: Pt. is a 89 yo Right-handed female of unknown race.On 09/21/2020 she was admitted to [facility] with diagnosis LEFT HIP FRACTURE.Her impairment category is Orthopaedic Disorders 08 - Unila teral Hip Fracture (08.11).Pre-morbidly, Pt. was independent/mod-I in Locomotion, Safety Awareness, B alance, and Endurance; and she had good Sphincter Control and Transfers Control.Currently, she has de ficits of Balance, Safety Awareness, Locomotion, Sphincter Control, Self-Care, Communication, Enduran ce, and Transfers Control.Pt. is now referred to [facility] for acute in-patie nt rehabilitation in order to maximize patient's functional independence in activities of daily livin g, strength, ROM, and mobility.- Rehab Goal Patient has realistic goal of being discharged at assistance level 7-Ind to reside at Home with Pt s elf. MDM/PLAN: - Physical Therapy Decreased range of motion - to improve, our physical therapists will perform initial evaluation of p t's status upon admission and devise an individualized program for increasing patient's Range of Obed on. Inability to transfer - to improve, our physical therapists will perform initial evaluation of pt's status upon admission and devise an individualized program for Bed mobility Need for home safety evaluation - to improve, our physical therapists will perform initial evaluatio n of pt's status upon admission and devise an individualized program for Home Evaluation Need in caregiver upon discharge - to improve, our physical therapists will perform initial evaluati on of pt's status upon admission and devise an individualized program for Caregiver Training New precaution - to improve, our physical therapists will perform initial evaluation of pt's status upon admission and devise an individualized program for Patient precaution education Poor balance - to improve, our physical therapists will perform initial evaluation of pt's status up on admission and devise an individualized program for Balance Training Poor endurance - to improve, our physical therapists will perform initial evaluation of pt's status upon admission and devise an individualized program for Endurance Training Achieving independence - to improve, our physical therapists will perform initial evaluation of pt's status upon admission and devise an individualized program for Community Reintegration Activities - Occupational Therapy ADL deficits - to improve, our occupation therapists will perform initial evaluation of pt's status upon admission and devise an individualized program for Bathing, Bed mobility, Community Reintegratio n, Cooking, Dressing, Eating, Fine Motor Skills, Grooming, Homemaking, Kitchen Mobility, Laundry, Pat ient Education, Safety Awareness, Splinting - Positioning, Transfers(Toilet, Tub, Shower), and Wheel Chair Management Need for rental boats caretaker - to improve, our occupation therapists will perform initial evaluation of pt's status upon admission and devise an individualized program for Caregiver Training - Other See attached MAR (Medication Administration Record) - Anterior Hip Precaution No abduction No active extension No adduction across midline No external rotation No hip flexion >90 degrees No internal rotation - Diet - Liquid Texture Continue Regular - Tube Feed Continue N/A - Diet Type Continue Regular - Posterior Hip Precaution No adduction across midline No external rotation No hip flexion >90 degrees No internal rotation No wheel chair propulsion - Weight Bearing Precaution WBAT left LE - Skin care per protocol - Diet - Solid Texture Continue Regular - Shower allowing shower FUNCTIONAL STATUS: UPDATED AT WEEKLY TEAM CONFERENCE - Bladder Same accident frequency: 7-Ind - No accidents in the past 7 days - Bowel Same accident frequency: 7-Ind - No accidents in the past 7 days - Walking Same score based on distance walked: 0(N/A) Same score based on distance walked: 1(<=50ft) - Wheelchair Same score based on distance traveled: 0(N/A) FUNCTIONAL STATUS: - Self-Care A. Eating Audie B. Grooming Audie C. Bathing Reta D. Dressing - Upper Reta E. Dressing - Lower modA F. Toileting Reta - Sphincter Control G. Bladder control Reat H. Bowel control sup - Transfers Control I. Bed/Chair/Wheelchair Reta J. Toilet Reta K. Tub/Shower modA - Locomotion L. Walk/Wheelchair (B) modA M. Stairs ADNO - Communication N. Comprehension (B) Audie O. Expression (B) Audie - Social Cognition P. Social Interaction Audie Q. Problem Solving Reta R. Memory Reta - Endurance Fair - Balance Fair - Safety Awareness Fair QI SCORES: - Self-Care A. Eating 03-Partial/moderate assistance B. Oral hygiene 02-Substantial/maximal assistance C. Toileting hygiene 02-Substantial/maximal assistance E. Shower/bathe self 02-Substantial/maximal assistance F. Upper body dressing 02-Substantial/maximal assistance G. Lower body dressing 02-Substantial/maximal assistance H. Putting on/taking off footwear 88-Not attempted due to medical condition or safety concerns - Mobility A. Roll left and right 03-Partial/moderate assistance B. Sit to lying 02-Substantial/maximal assistance C. Lying to sitting on side of bed 02-Substantial/maximal assistance D. Sit to stand 02-Substantial/maximal assistance E. Chair/[id number] transfer 02-Substantial/maximal assistance F. Toilet transfer 02-Substantial/maximal assistance G. Car transfer 88-Not attempted due to medical condition or safety concerns I. Walk 10 feet 88-Not attempted due to medical condition or safety concerns J. Walk 50 feet with two turns 88-Not attempted due to medical condition or safety concerns K. Walk 150 feet 88-Not attempted due to medical condition or safety concerns L. Walking 10 feet on uneven surfaces 88-Not attempted due to medical condition or safety concerns M. 1 step (curb) 88-Not attempted due to medical condition or safety concerns N. 4 steps 88-Not attempted due to medical condition or safety concerns O. 12 steps 88-Not attempted due to medical condition or safety concerns P. Picking up object 88-Not attempted due to medical condition or safety concerns R. Wheel 50 feet with two turns 88-Not attempted due to medical condition or safety concerns S. Wheel 150 feet 88-Not attempted due to medical condition or safety concerns - Bladder and Bowel Bladder continence Bowel continence - Endurance Good - Balance Good - Safety Awareness Good CURRENT FUNC. 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
[2020-09-29] MEDS: JUVEN PACKET PO SCH (19:32)
[2020-09-29] MEDS: TRAZODONE 50 MG TABLET PO SCH (19:35)
[2020-09-30] MEDS: ENOXAPARIN 40 MG/0.4 ML SQ SCH (06:41)
[2020-09-30] MEDS: FLUTICASONE 50MCG NASAL SPRAY NAS SCH ×2 (06:41→21:57)
[2020-09-30] MEDS: LEVOTHYROXINE SOD 0.075 MG TAB PO SCH (06:41)
[2020-09-30] MEDS: PANTOPRAZOLE 40MG TABLET PO SCH (06:41)
[2020-09-30] MEDS: LIDOCAINE 4% PATCH TOP SCH (06:41)
[2020-09-30] MEDS: TRAMADOL HCL 50 MG TAB PO PRN ×3 (06:47→21:56)
[2020-09-30] MEDS: AMLODIPINE 5 MG TAB PO SCH ×2 (07:57→21:54)
[2020-09-30] MEDS: GUAIFENESIN 600 MG SA TAB PO SCH ×2 (07:57→21:54)
[2020-09-30] MEDS: GABAPENTIN 100 MG CAP PO SCH ×2 (07:57→21:54)
[2020-09-30] MEDS: BENAZEPRIL 10 MG TAB PO SCH ×2 (07:58→21:55)
[2020-09-30] MEDS: DOCUSATE NA/SENNA CONC 1 TAB PO SCH ×2 (07:58→21:53)
[2020-09-30] MEDS: JUVEN PACKET PO SCH ×2 (07:59→20:00)
[2020-09-30] MEDS: CRANBERRY FRUIT EXTRACT 200 MG CAP PO SCH ×2 (08:00→21:53)
[2020-09-30] MEDS: MAGNESIUM OXIDE 400 MG TAB PO SCH ×2 (08:00→21:55)
--- NOTE | 2020-09-30 08:33 | PN ---
Date of Progress Note: 09/29/2020 Subjective: The patient was seen for followup this morning. No new complaints or problems reported by her. She did have bowel movement yesterday. Denies any abdominal pain, nausea, vomiting. Objective: Vital Signs: Reviewed. HEENT: Unremarkable. Lungs: Clear to auscultation. Heart: Sounds normal. Abdomen: Soft. Bowel sounds normal. No guarding, rigidity, tenderness, distention. Extremities: No leg edema. Impression: 1. Left hip fracture. 2. Hypertension. 3. Constipation. 4. Insomnia. Plan: We will go ahead and continue current medications. Continue current pain medication, which seems to be controlling her pain very well and I will continue current stool softener and antihypertensive medication. Physical therapy to be continued under care of Dr. Oconnor. Continue current trazodone and that actually is helping her very well with insomnia. I will see her tomorrow for followup. HUBERT/MODL Voice ID: [id number] Report ID: [id number] MTDDanielle
[2020-09-30] MEDS: TRAZODONE 50 MG TABLET PO SCH (22:05)
--- NOTE | 2020-09-30 23:03 | PN ---
Date of Progress Note: 09/30/2020 Subjective: The patient was seen this morning for followup. No new complaints or problems reported by the patient. Objective: General: Lying in bed, not in any distress. Vital Signs: Reviewed. HEENT: Unremarkable. Lungs: Clear to auscultation. Heart: Sounds normal. Abdomen: Soft. Bowel sounds normal. No guarding, rigidity, tenderness, or distention. Extremities: No leg edema. Impression: 1.Left hip fracture. 2.Hypertension. 3.Chronic constipation. 4.Insomnia. Plan: We will go ahead and continue current medications. Continue current antihypertensive medicati on. Blood pressure is under better control with current medications. We will continue to monitor bl ood pressure and if necessary, adjust medication. Physical therapy to be provided under guidance of Dr. Oconnor. I will see her tomorrow for followup. HUBERT/MODL Voice ID: [id number] Report ID: [id number]
[2020-10-01] MEDS: PANTOPRAZOLE 40MG TABLET PO SCH (07:28)
[2020-10-01] MEDS: LEVOTHYROXINE SOD 0.075 MG TAB PO SCH (07:28)
[2020-10-01] MEDS: ENOXAPARIN 40 MG/0.4 ML SQ SCH (08:48)
[2020-10-01] MEDS: TRAMADOL HCL 50 MG TAB PO PRN ×2 (08:50→12:22)
[2020-10-01] MEDS: DOCUSATE NA/SENNA CONC 1 TAB PO SCH ×2 (08:51→20:19)
[2020-10-01] MEDS: CRANBERRY FRUIT EXTRACT 200 MG CAP PO SCH ×2 (08:51→20:20)
[2020-10-01] MEDS: GUAIFENESIN 600 MG SA TAB PO SCH ×2 (08:52→20:20)
[2020-10-01] MEDS: AMLODIPINE 5 MG TAB PO SCH ×2 (08:52→20:19)
[2020-10-01] MEDS: MAGNESIUM OXIDE 400 MG TAB PO SCH ×2 (08:52→20:00)
[2020-10-01] MEDS: GABAPENTIN 100 MG CAP PO SCH (08:52)
[2020-10-01] MEDS: FLUTICASONE 50MCG NASAL SPRAY NAS SCH ×2 (08:55→20:18)
[2020-10-01] MEDS: BENAZEPRIL 10 MG TAB PO SCH ×2 (08:59→20:20)
[2020-10-01] MEDS: JUVEN PACKET PO SCH ×2 (09:00→20:00)
[2020-10-01] MEDS: LIDOCAINE 4% PATCH TOP SCH (09:02)
--- NOTE | 2020-10-01 17:24 | R.PN ---
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 Pt denied any Shortness of Breath. WBC 9.8, Hgb 10.2, prealbumin 12.8, calcium 8.4, UA 1+ esterase, 20-50 bacteria, 10-20 WBC. Ambulated 240' with a rolling walker and contact guard assistance. VITAL SIGNS Temperature: 98.0 F SBP/DBP: 139/67 Pulse: 63 Resp: 16 MEDICATION ALLERGIES: CODEINE PENICILLIN SULFA ENVIRONMENTAL ALLERGIES: - Substance Allergies None Known - Other Allergies None Known NURSING: - Shower allowing shower - Skin care per protocol PRECAUTIONS: - Anterior Hip Precaution No abduction No active extension No adduction across midline No external rotation No hip flexion >90 degrees No internal rotation - Posterior Hip Precaution No adduction across midline No external rotation No hip flexion >90 degrees No internal rotation No wheel chair propulsion - Weight Bearing Precaution WBAT left LE ACTIVITIES OOB only with supervision THERAPIES: - Dietary and Nutrition Adequate Nutrition. Nutritional Education. Nutritional Supplements. PHYSICAL EXAM - Gen Alert and awake Lying in bed No apparent distress Oriented to: person, time, and place - Skin Left hip incision is intact. No tingling - Eyes No abnormalities - ENMT No abnormalities - Neck No stiffness - CVS RRR - Chest Clear - Resp No wheezing - Abd + bowel sounds - GI Soft Deferred - Continent - Ext Left hip surgical site has good hemostasis. - MSK 4+/5 weakness in left lower extremity - Neuro 4/5 strength left lower extremities. - Psych No abnormalities ASSESSMENT: Pt. is a 89 yo Right-handed female of unknown race.On 09/21/[address] [facility] with diagnosis LEFT HIP FRACTURE.Her impairment category is Orthopaedic Disorders 08 - Unila teral Hip Fracture (08.11).Pre-morbidly, Pt. was independent/mod-I in Locomotion, Safety Awareness, B alance, and Endurance; and she had good Sphincter Control and Transfers Control.Currently, she has de ficits of Balance, Safety Awareness, Locomotion, Sphincter Control, Self-Care, Communication, Enduran ce, and Transfers Control.Pt. is now referred to [facility] for acute in-patie nt rehabilitation in order to maximize patient's functional independence in activities of daily livin g, strength, ROM, and mobility.- Rehab Goal Patient has realistic goal of being discharged at assistance level 7-Ind to reside at Home with Pt s elf. MDM/PLAN: - Physical Therapy Decreased range of motion - to improve, our physical therapists will perform initial evaluation of p t's status upon admission and devise an individualized program for increasing patient's Range of Obed on. Inability to transfer - to improve, our physical therapists will perform initial evaluation of pt's status upon admission and devise an individualized program for Bed mobility Need for home safety evaluation - to improve, our physical therapists will perform initial evaluatio n of pt's status upon admission and devise an individualized program for Home Evaluation Need in caregiver upon discharge - to improve, our physical therapists will perform initial evaluati on of pt's status upon admission and devise an individualized program for Caregiver Training New precaution - to improve, our physical therapists will perform initial evaluation of pt's status upon admission and devise an individualized program for Patient precaution education Poor balance - to improve, our physical therapists will perform initial evaluation of pt's status up on admission and devise an individualized program for Balance Training Poor endurance - to improve, our physical therapists will perform initial evaluation of pt's status upon admission and devise an individualized program for Endurance Training Achieving independence - to improve, our physical therapists will perform initial evaluation of pt's status upon admission and devise an individualized program for Community Reintegration Activities - Occupational Therapy ADL deficits - to improve, our occupation therapists will perform initial evaluation of pt's status upon admission and devise an individualized program for Bathing, Bed mobility, Community Reintegratio n, Cooking, Dressing, Eating, Fine Motor Skills, Grooming, Homemaking, Kitchen Mobility, Laundry, Pat ient Education, Safety Awareness, Splinting - Positioning, Transfers(Toilet, Tub, Shower), and Wheel Chair Management Need for childcare teacher - to improve, our occupation therapists will perform initial evaluation of pt's status upon admission and devise an individualized program for Caregiver Training - Other See attached MAR (Medication Administration Record) - Anterior Hip Precaution No abduction No active extension No adduction across midline No external rotation No hip flexion >90 degrees No internal rotation - Diet - Liquid Texture Continue Regular - Tube Feed Continue N/A - Diet Type Continue Regular - Posterior Hip Precaution No adduction across midline No external rotation No hip flexion >90 degrees No internal rotation No wheel chair propulsion - Weight Bearing Precaution WBAT left LE - Skin care per protocol - Diet - Solid Texture Continue Regular - Shower allowing shower FUNCTIONAL STATUS: UPDATED AT WEEKLY TEAM CONFERENCE - Bladder Same accident frequency: 7-Ind - No accidents in the past 7 days - Bowel Same accident frequency: 7-Ind - No accidents in the past 7 days - Walking Same score based on distance walked: 0(N/A) Same score based on distance walked: 1(<=50ft) - Wheelchair Same score based on distance traveled: 0(N/A) FUNCTIONAL STATUS: - Self-Care A. Eating Audie B. Grooming Audie C. Bathing Reta D. Dressing - Upper Reta E. Dressing - Lower modA F. Toileting Reta - Sphincter Control G. Bladder control Reta H. Bowel control sup - Transfers Control I. Bed/Chair/Wheelchair Reta J. Toilet Reta K. Tub/Shower modA - Locomotion L. Walk/Wheelchair (B) modA M. Stairs ADNO - Communication N. Comprehension (B) Audie O. Expression (B) Audie - Social Cognition P. Social Interaction Audie Q. Problem Solving Reta R. Memory Reta - Endurance Fair - Balance Fair - Safety Awareness Fair QI SCORES: - Self-Care A. Eating 03-Partial/moderate assistance B. Oral hygiene 02-Substantial/maximal assistance C. Toileting hygiene 02-Substantial/maximal assistance E. Shower/bathe self 02-Substantial/maximal assistance F. Upper body dressing 02-Substantial/maximal assistance G. Lower body dressing 02-Substantial/maximal assistance H. Putting on/taking off footwear 88-Not attempted due to medical condition or safety concerns - Mobility A. Roll left and right 03-Partial/moderate assistance B. Sit to lying 02-Substantial/maximal assistance C. Lying to sitting on side of bed 02-Substantial/maximal assistance D. Sit to stand 02-Substantial/maximal assistance E. Chair/zje-pe-[id number] transfer 02-Substantial/maximal assistance F. Toilet transfer 02-Substantial/maximal assistance G. Car transfer 88-Not attempted due to medical condition or safety concerns I. Walk 10 feet 88-Not attempted due to medical condition or safety concerns J. Walk 50 feet with two turns 88-Not attempted due to medical condition or safety concerns K. Walk 150 feet 88-Not attempted due to medical condition or safety concerns L. Walking 10 feet on uneven surfaces 88-Not attempted due to medical condition or safety concerns M. 1 step (curb) 88-Not attempted due to medical condition or safety concerns N. 4 steps 88-Not attempted due to medical condition or safety concerns O. 12 steps 88-Not attempted due to medical condition or safety concerns P. Picking up object 88-Not attempted due to medical condition or safety concerns R. Wheel 50 feet with two turns 88-Not attempted due to medical condition or safety concerns S. Wheel 150 feet 88-Not attempted due to medical condition or safety concerns - Bladder and Bowel Bladder continence Bowel continence - Endurance Good - Balance Good - Safety Awareness Good CURRENT FUNC. 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
[2020-10-01] MEDS: GABAPENTIN 300 MG CAP PO SCH (20:19)
[2020-10-01] MEDS: TRAZODONE 50 MG TABLET PO SCH (20:19)
[2020-10-01] MEDS: ACETAMINOPHEN 500 MG TAB PO PRN (20:20)
[2020-10-02] MEDS: PANTOPRAZOLE 40MG TABLET PO SCH (06:39)
[2020-10-02] MEDS: LEVOTHYROXINE SOD 0.075 MG TAB PO SCH (06:39)
[2020-10-02] MEDS: ENOXAPARIN 40 MG/0.4 ML SQ SCH (06:41)
[2020-10-02 07:20] LABS: Absolute Lymphocytes (CBC) 2.1 K/uL (0.7-4.9); Albumin 2.5 g/dL (3.4-5.0); Basophils % 1.4 % (0-1.3); Hematocrit 30.4 % (36.0-45.0); Lymphocytes % 21.2 % (15.3-44.8); MPV 8.5 fL (7.6-11.3); Magnesium 2.7 mg/dL (1.8-2.4); Potassium 4.6 mmol/L (3.5-5.1); Prealbumin 15.7 mg/dL (20-40); RBC Red Blood Cell Count 3.18 M/uL (3.86-4.86)
--- NOTE | 2020-10-02 07:37 | PN ---
Date of Progress Note: 10/01/2020 Subjective: The patient was seen this morning for followup. No new complaints or problems reported by patient. Lying in bed, not in any distress. Objective: Vital Signs: Reviewed. HEENT: Unremarkable. Lungs: Clear to auscultation. Heart: Sounds normal. Abdomen: Soft. Bowel sounds normal. No guarding, rigidity, tenderness, or distention. Extremities: No leg edema. Impression: 1.Left hip fracture. 2.Hypertension. 3.Constipation. 4.Anemia. Plan: We will continue current medications. Continue current pain medication, which seems to be hel ping to control her pain well. Continue current DVT prophylaxis and physical therapy under guidance of Dr. Oconnor. We will continue to monitor vital signs. Blood pressure seems to be under good con trol with current antihypertensive medication which will be continued. HUBERT/MODL Voice ID: [id number] Report ID: [id number]
[2020-10-02] MEDS: GABAPENTIN 300 MG CAP PO SCH ×2 (08:31→19:46)
[2020-10-02] MEDS: DOCUSATE NA/SENNA CONC 1 TAB PO SCH ×2 (08:31→19:46)
[2020-10-02] MEDS: CRANBERRY FRUIT EXTRACT 200 MG CAP PO SCH ×2 (08:31→19:44)
[2020-10-02] MEDS: FLUTICASONE 50MCG NASAL SPRAY NAS SCH ×2 (08:31→19:44)
[2020-10-02] MEDS: AMLODIPINE 5 MG TAB PO SCH ×2 (08:32→19:46)
[2020-10-02] MEDS: GUAIFENESIN 600 MG SA TAB PO SCH ×2 (08:32→19:47)
[2020-10-02] MEDS: MAGNESIUM OXIDE 400 MG TAB PO SCH ×2 (08:32→19:47)
[2020-10-02] MEDS: TRAMADOL HCL 50 MG TAB PO PRN ×2 (08:33→13:14)
[2020-10-02] MEDS: JUVEN PACKET PO SCH ×2 (08:33→19:47)
[2020-10-02] MEDS: LIDOCAINE 4% PATCH TOP SCH (08:34)
[2020-10-02] MEDS: BENAZEPRIL 10 MG TAB PO SCH ×2 (08:34→19:46)
[2020-10-02] MEDS: ONDANSETRON 4 MG (ODT) TAB PO PRN (13:14)
--- NOTE | 2020-10-02 18:23 | R.PN ---
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 Pt denied any Shortness of Breath. WBC 9.7, Hgb 10.3, prealbumin 15.7, calcium 8.8, UA 1+ esterase, 20-50 bacteria, 10-20 WBC, cultures are negative. Ambulated 240' with a rolling walker and contact guard assistance. VITAL SIGNS Temperature: 98.1 F SBP/DBP: 128/67 Pulse: 60 Resp: 16 MEDICATION ALLERGIES: CODEINE PENICILLIN SULFA ENVIRONMENTAL ALLERGIES: - Substance Allergies None Known - Other Allergies None Known NURSING: - Shower allowing shower - Skin care per protocol PRECAUTIONS: - Anterior Hip Precaution No abduction No active extension No adduction across midline No external rotation No hip flexion >90 degrees No internal rotation - Posterior Hip Precaution No adduction across midline No external rotation No hip flexion >90 degrees No internal rotation No wheel chair propulsion - Weight Bearing Precaution WBAT left LE ACTIVITIES OOB only with supervision THERAPIES: - Dietary and Nutrition Adequate Nutrition. Nutritional Education. Nutritional Supplements. PHYSICAL EXAM - Gen Alert and awake Lying in bed No apparent distress Oriented to: person, time, and place - Skin Left hip incision is intact. No tingling - Eyes No abnormalities - ENMT No abnormalities - Neck No stiffness - CVS RRR - Chest Clear - Resp No wheezing - Abd + bowel sounds - GI Soft Deferred - Continent - Ext Left hip surgical site has good hemostasis. - MSK 4+/5 weakness in left lower extremity - Neuro 4/5 strength left lower extremities. - Psych No abnormalities ASSESSMENT: Pt. is a 89 yo Right-handed female of unknown race.On 09/21/2020 she was admitted to [facility] with diagnosis LEFT HIP FRACTURE.Her impairment category is Orthopaedic Disorders 08 - Unila teral Hip Fracture (08.11).Pre-morbidly, Pt. was independent/mod-I in Locomotion, Safety Awareness, B alance, and Endurance; and she had good Sphincter Control and Transfers Control.Currently, she has de ficits of Balance, Safety Awareness, Locomotion, Sphincter Control, Self-Care, Communication, Enduran ce, and Transfers Control.Pt. is now referred to [facility] for acute in-patie nt rehabilitation in order to maximize patient's functional independence in activities of daily livin g, strength, ROM, and mobility.- Rehab Goal Patient has realistic goal of being discharged at assistance level 7-Ind to reside at Home with Pt s elf. MDM/PLAN: - Physical Therapy Decreased range of motion - to improve, our physical therapists will perform initial evaluation of p t's status upon admission and devise an individualized program for increasing patient's Range of Obed on. Inability to transfer - to improve, our physical therapists will perform initial evaluation of pt's status upon admission and devise an individualized program for Bed mobility Need for home safety evaluation - to improve, our physical therapists will perform initial evaluatio n of pt's status upon admission and devise an individualized program for Home Evaluation Need in caregiver upon discharge - to improve, our physical therapists will perform initial evaluati on of pt's status upon admission and devise an individualized program for Caregiver Training New precaution - to improve, our physical therapists will perform initial evaluation of pt's status upon admission and devise an individualized program for Patient precaution education Poor balance - to improve, our physical therapists will perform initial evaluation of pt's status up on admission and devise an individualized program for Balance Training Poor endurance - to improve, our physical therapists will perform initial evaluation of pt's status upon admission and devise an individualized program for Endurance Training Achieving independence - to improve, our physical therapists will perform initial evaluation of pt's status upon admission and devise an individualized program for Community Reintegration Activities - Occupational Therapy ADL deficits - to improve, our occupation therapists will perform initial evaluation of pt's status upon admission and devise an individualized program for Bathing, Bed mobility, Community Reintegratio n, Cooking, Dressing, Eating, Fine Motor Skills, Grooming, Homemaking, Kitchen Mobility, Laundry, Pat ient Education, Safety Awareness, Splinting - Positioning, Transfers(Toilet, Tub, Shower), and Wheel Chair Management Need for lawn care technician - to improve, our occupation therapists will perform initial evaluation of pt's status upon admission and devise an individualized program for Caregiver Training - Other See attached MAR (Medication Administration Record) - Anterior Hip Precaution No abduction No active extension No adduction across midline No external rotation No hip flexion >90 degrees No internal rotation - Diet - Liquid Texture Continue Regular - Tube Feed Continue N/A - Diet Type Continue Regular - Posterior Hip Precaution No adduction across midline No external rotation No hip flexion >90 degrees No internal rotation No wheel chair propulsion - Weight Bearing Precaution WBAT left LE - Skin care per protocol - Diet - Solid Texture Continue Regular - Shower allowing shower FUNCTIONAL STATUS: UPDATED AT WEEKLY TEAM CONFERENCE - Bladder Same accident frequency: 7-Ind - No accidents in the past 7 days - Bowel Same accident frequency: 7-Ind - No accidents in the past 7 days - Walking Same score based on distance walked: 0(N/A) Same score based on distance walked: 1(<=50ft) - Wheelchair Same score based on distance traveled: 0(N/A) FUNCTIONAL STATUS: - Self-Care A. Eating Audie B. Grooming Audie C. Bathing Reta D. Dressing - Upper Reta E. Dressing - Lower modA F. Toileting Reta - Sphincter Control G. Bladder control Reta H. Bowel control sup - Transfers Control I. Bed/Chair/Wheelchair Reta J. Toilet Reta K. Tub/Shower modA - Locomotion L. Walk/Wheelchair (B) modA M. Stairs ADNO - Communication N. Comprehension (B) Audie O. Expression (B) Audie - Social Cognition P. Social Interaction Audie Q. Problem Solving Reta R. Memory Reta - Endurance Fair - Balance Fair - Safety Awareness Fair QI SCORES: - Self-Care A. Eating 03-Partial/moderate assistance B. Oral hygiene 02-Substantial/maximal assistance C. Toileting hygiene 02-Substantial/maximal assistance E. Shower/bathe self 02-Substantial/maximal assistance F. Upper body dressing 02-Substantial/maximal assistance G. Lower body dressing 02-Substantial/maximal assistance H. Putting on/taking off footwear 88-Not attempted due to medical condition or safety concerns - Mobility A. Roll left and right 03-Partial/moderate assistance B. Sit to lying 02-Substantial/maximal assistance C. Lying to sitting on side of bed 02-Substantial/maximal assistance D. Sit to stand 02-Substantial/maximal assistance E. Chair/[id number]-skfwe transfer 02-Substantial/maximal assistance F. Toilet transfer 02-Substantial/maximal assistance G. Car transfer 88-Not attempted due to medical condition or safety concerns I. Walk 10 feet 88-Not attempted due to medical condition or safety concerns J. Walk 50 feet with two turns 88-Not attempted due to medical condition or safety concerns K. Walk 150 feet 88-Not attempted due to medical condition or safety concerns L. Walking 10 feet on uneven surfaces 88-Not attempted due to medical condition or safety concerns M. 1 step (curb) 88-Not attempted due to medical condition or safety concerns N. 4 steps 88-Not attempted due to medical condition or safety concerns O. 12 steps 88-Not attempted due to medical condition or safety concerns P. Picking up object 88-Not attempted due to medical condition or safety concerns R. Wheel 50 feet with two turns 88-Not attempted due to medical condition or safety concerns S. Wheel 150 feet 88-Not attempted due to medical condition or safety concerns - Bladder and Bowel Bladder continence Bowel continence - Endurance Good - Balance Good - Safety Awareness Good CURRENT FUNC. 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
[2020-10-02] MEDS: ACETAMINOPHEN 500 MG TAB PO PRN (19:45)
[2020-10-02] MEDS: BACLOFEN 10 MG TAB PO SCH (19:45)
[2020-10-02] MEDS: TRAZODONE 50 MG TABLET PO SCH (19:47)
[2020-10-02] MEDS: ENSURE HIGH PROTEIN 237 ML CAN PO SCH (19:47)
[2020-10-03] MEDS: ENOXAPARIN 40 MG/0.4 ML SQ SCH (06:54)
[2020-10-03] MEDS: LEVOTHYROXINE SOD 0.075 MG TAB PO SCH (06:55)
[2020-10-03] MEDS: PANTOPRAZOLE 40MG TABLET PO SCH (06:55)
[2020-10-03] MEDS: LIDOCAINE 4% PATCH TOP SCH (07:22)
[2020-10-03] MEDS: JUVEN PACKET PO SCH ×2 (08:00→20:00)
[2020-10-03] MEDS: ENSURE HIGH PROTEIN 237 ML CAN PO SCH ×2 (08:00→20:00)
[2020-10-03] MEDS: BENAZEPRIL 10 MG TAB PO SCH ×2 (08:00→20:49)
[2020-10-03] MEDS: AMLODIPINE 5 MG TAB PO SCH (08:00)
--- NOTE | 2020-10-03 08:36 | PN ---
Date of Progress Note: 10/02/2020 Subjective: The patient was seen this morning for followup. No new complaints or problems reported by her. She still seems to have some trouble with memory again as noted for few days. She was actin g okay today. She was asking question again, so what are you going to do now and what is going on he re and this is how she usually starts. She does not really exactly have recollection of what has hap pened, but when I was talking to her, she did say that she had hip fracture and she is here for danica davidson. Objective: Vital Signs: Reviewed. HEENT: Unremarkable. Lungs: Clear to auscultation. Heart: Sounds normal. Abdomen: Soft. Bowel sounds normal. No guarding, rigidity, tenderness, distention. Extremities: No leg edema. Laboratory Data: White count 9.7, hemoglobin 10.3, platelets 354. Sodium 140, potassium 4.6, chlori de 107, bicarb 28, BUN 21, creatinine 1.02, glucose 94. Impression: 1.Left hip fracture. 2.Anemia. 3.Hypertension. 4.Constipation. 5.Insomnia. Plan: We will continue current medications. Continue current pain medications and we will also cont inue current physical therapy under guidance of Dr. Oconnor. Monitor blood pressure. Continue curr ent antihypertensive medication and anticoagulation therapy for DVT prophylaxis. HUBERT/MODL Voice ID: [id number] Report ID: [id number]
[2020-10-03] MEDS: DOCUSATE NA/SENNA CONC 1 TAB PO SCH ×2 (08:37→20:00)
[2020-10-03] MEDS: CRANBERRY FRUIT EXTRACT 200 MG CAP PO SCH ×2 (08:37→20:48)
[2020-10-03] MEDS: ACETAMINOPHEN 500 MG TAB PO PRN ×2 (08:38→17:11)
[2020-10-03] MEDS: GUAIFENESIN 600 MG SA TAB PO SCH ×2 (08:38→20:48)
[2020-10-03] MEDS: MAGNESIUM OXIDE 400 MG TAB PO SCH ×2 (08:38→20:00)
[2020-10-03] MEDS: FLUTICASONE 50MCG NASAL SPRAY NAS SCH ×2 (08:40→20:00)
--- NOTE | 2020-10-03 09:36 | P.RH.PN ---
Estimated Length of Stay: 15 Expected Discharge Date: 10/11/20 Discharge Disposition Plan: Home Family Support: Yes Alf Goal: Mobility, Transfers, Self Care Vital Signs: Last Vital Signs Temp 97.4 F 10/02/20 20:00 Pulse 59 10/02/20 20:00 Resp 18 10/02/20 20:00 BP 104/51 L 10/02/20 20:00 Pulse Ox 93 10/02/20 20:00 Laboratory: Laboratory Last Values WBC 9.70 K/uL (4.3-10.9) 10/02/20 06:36 RBC 3.18 M/uL (3.86-4.86) L 10/02/20 06:36 Hgb 10.3 g/dL (12.0-15.0) L 10/02/20 06:36 Hct 30.4 % (36.0-45.0) L 10/02/20 06:36 MCV 95.8 fL (80-100) 10/02/20 06:36 MCH 32.6 pg (27.0-35.0) 10/02/20 06:36 MCHC 34.0 g/dL (32.0-36.0) 10/02/20 06:36 RDW 13.8 % (12.1-15.2) 10/02/20 06:36 Plt Count 354 K/uL (152-406) D 10/02/20 06:36 MPV 8.5 fL (7.6-11.3) 10/02/20 06:36 Neutrophils % 64.2 % (41.7-73.7) 10/02/20 06:36 Lymphocytes % 21.2 % (15.3-44.8) 10/02/20 06:36 Monocytes % 8.7 % (3.3-12.3) 10/02/20 06:36 Eosinophils % 4.5 % (0-4.4) H 10/02/20 06:36 Basophils % 1.4 % (0-1.3) H 10/02/20 06:36 Absolute Neutrophils 6.2 K/uL (1.8-8.0) 10/02/20 06:36 Absolute Lymphocytes 2.1 K/uL (0.7-4.9) 10/02/20 06:36 Absolute Monocytes 0.8 K/uL (0.1-1.3) 10/02/20 06:36 Absolute Eosinophils 0.4 K/uL (0-0.5) 10/02/20 06:36 Absolute Basophils 0.1 K/uL (0-0.5) 10/02/20 06:36 Sodium 140 mmol/L (136-145) 10/02/20 06:36 Potassium 4.6 mmol/L (3.5-5.1) 10/02/20 06:36 Chloride 107 mmol/L (98-107) 10/02/20 06:36 Carbon Dioxide 28 mmol/L (21-32) 10/02/20 06:36 BUN 21 mg/dL (7-18) H 10/02/20 06:36 Creatinine 1.02 mg/dL (0.55-1.3) 10/02/20 06:36 Estimated GFR 51 mL/min (=/>90) L 10/02/20 06:36 Glucose 94 mg/dL (74-106) 10/02/20 06:36 Calcium 8.8 mg/dL (8.5-10.1) 10/02/20 06:36 Magnesium 2.7 mg/dL (1.8-2.4) H 10/02/20 06:36 Albumin 2.5 g/dL (3.4-5.0) L 10/02/20 06:36 Prealbumin 15.7 mg/dL (20-40) L 10/02/20 06:36 Urine Color Yellow 09/25/20 12:30 Urine Appearance Clear 09/25/20 12:30 Urine pH 6.0 (5.0-7.0) 09/25/20 12:30 Ur Specific Paia 1.020 (1.005-1.030) 09/25/20 12:30 Glucose (UA)(Auto) Negative (NEG) 09/25/20 12:30 Urine Ketones Negative (NEG) 09/25/20 12:30 Urine Blood Negative (NEG) 09/25/20 12:30 Urine Nitrite Negative (NEG) 09/25/20 12:30 Urine Bilirubin Negative (NEG) 09/25/20 12:30 Urine Urobilinogen 0.2 mg/dL (0.2-1.0) 09/25/20 12:30 Ur Leukocyte Esterase 1+ (NEG) H 09/25/20 12:30 Urine RBC <5 /HPF (NONE SEEN) 09/25/20 12:30 Urine WBC 10-20 /HPF (<5) H 09/25/20 12:30 Ur Squamous Epith Cells 5-10 /HPF (NONE SEEN) H 09/25/20 12:30 Urine Bacteria 20-50 /HPF (<20) H 09/25/20 12:30 Urine Mucus 1+ /HPF (NONE SEEN) 09/25/20 12:30 Urine Culture Reflexed Not needed 09/25/20 12:30 Urine Total Protein Negative (NEG) 09/25/20 12:30 Weight: 162 lb 1.6 oz Wound Present: No Closed Surgical Incision Present: Yes Negative Pressure Wound Therapy Present: No Physician Update: Labs reviewed and are stable. She is walking 70 to 140' with standby assistance. Transfers with minimum assistance. Moderate assistance for lower body dressing. Functional Improvement: Patient has met all short term goals and is currently working to achieve her long term care pharmacist goals. Summary: Patient's care plan and long term care pharmacist goals have been reviewed and revised as necessary. Please see the Rehabilitation Signature page for all necessary signatures.
[2020-10-03] MEDS: GABAPENTIN 300 MG CAP PO SCH ×2 (09:50→20:52)
--- NOTE | 2020-10-03 10:36 | PN ---
Date of Progress Note: 10/03/2020 Subjective: The patient was seen this morning for followup. She was lying in bed, not in any distre ss. Earlier today when she was in the shower, her blood pressure had dropped and she was feeling wea k, lightheaded. She was brought into her bed and after lying down in the bed her blood pressure to c ome up. When I saw her she had just finished eating her breakfast. She was feeling much better, zana k to her normal self again. Objective: Vital Signs: Reviewed. HEENT: Unremarkable. Lungs: Clear to auscultation. Heart: Sounds normal. Abdomen: Soft. Bowel sounds normal. No guarding, rigidity, tenderness, distention. Extremities: No leg edema. Impression: 1.Left hip fracture. 2.Hypertension. 3.Constipation. 4.Insomnia. Plan: Few days ago we had to go up on the dose of her blood pressure medications because her blood p ressure was elevated and after today's episode, we will reduce amount of her blood pressure medicatio ns and continue to monitor blood pressure and if further dose adjustment needed, will consider that. Continue current pain medication. Continue physical therapy under guidance of Dr. Oconnor. I will see her tomorrow for followup. HUBERT/MODL Voice ID: [id number] Report ID: [id number]
[2020-10-03] MEDS: BACLOFEN 10 MG TAB PO SCH (20:49)
[2020-10-03] MEDS: TRAZODONE 50 MG TABLET PO SCH (20:49)
[2020-10-04] MEDS: MAGNESIUM OXIDE 400 MG TAB PO SCH ×2 (06:37→19:24)
[2020-10-04] MEDS: PANTOPRAZOLE 40MG TABLET PO SCH (06:39)
[2020-10-04] MEDS: FLUTICASONE 50MCG NASAL SPRAY NAS SCH ×2 (06:39→19:22)
[2020-10-04] MEDS: LEVOTHYROXINE SOD 0.075 MG TAB PO SCH (06:39)
[2020-10-04] MEDS: ENOXAPARIN 40 MG/0.4 ML SQ SCH (06:39)
[2020-10-04] MEDS: LIDOCAINE 4% PATCH TOP SCH ×2 (08:00→08:58)
[2020-10-04] MEDS: JUVEN PACKET PO SCH ×2 (08:00→19:24)
[2020-10-04] MEDS: CRANBERRY FRUIT EXTRACT 200 MG CAP PO SCH ×2 (08:48→19:23)
[2020-10-04] MEDS: GABAPENTIN 300 MG CAP PO SCH ×2 (08:49→19:22)
[2020-10-04] MEDS: GUAIFENESIN 600 MG SA TAB PO SCH ×2 (08:49→19:23)
[2020-10-04] MEDS: DOCUSATE NA/SENNA CONC 1 TAB PO SCH ×2 (08:49→19:25)
[2020-10-04] MEDS: ACETAMINOPHEN 500 MG TAB PO PRN (08:55)
[2020-10-04] MEDS: AMLODIPINE 5 MG TAB PO SCH (08:58)
[2020-10-04] MEDS: ENSURE HIGH PROTEIN 237 ML CAN PO SCH ×2 (09:01→19:24)
[2020-10-04] MEDS: BENAZEPRIL 10 MG TAB PO SCH ×2 (10:43→19:24)
--- NOTE | 2020-10-04 12:16 | PN ---
Date of Progress Note: 10/04/2020 Subjective: The patient was seen this morning for followup. No new complaints or problems reported by her. Lying in bed, not in any distress. Objective: Vital Signs: Reviewed. HEENT: Unremarkable. Lungs: Clear to auscultation. Heart: Sounds normal. Abdomen: Soft. Bowel sounds normal. No guarding, rigidity, tenderness, or distention. Extremities: No leg edema. Impression: 1.Hypertension. 2.Left hip fracture. 3.Insomnia. 4.Constipation. Plan: We will continue current medication. Continue current antihypertensive medication. Vital sig ns reviewed. Blood pressure is under good control this morning. We will continue physical therapy u nder guidance of Dr. Oconnor. Continue current anticoagulation therapy. HUBERT/MODL Voice ID: [id number] Report ID: [id number]
--- NOTE | 2020-10-04 15:32 | FAST ---
[employer] FORM SHIFT START DATE/TIME: 10/04/2020 07:00 ([employer]) SHIFT END DATE/TIME: 10/04/2020 19:00 ([employer]) NAME JOSUE DU DATE OF : 1930 DATE OF ADMISSION: 09/25/2020 10:31 ([employer]) PHONE: AGE: 89 N# [id number] GENDER: Female ENCOUNTER PHYSICIAN: Dr. Shukri Oconnor M.D. ADMISSION DIAGNOSIS: - Orthopaedic Disorders 08 - Unilateral Hip Fracture (08.11) LEFT HIP FRACTURE. EATING: EATING - STEP 1: Does the patient complete the activity by him/herself with no assistance (physical, verbal/nonverbal cueing, setup/clean-up)? No. EATING - STEP 2: Does the patient need only setup/clean-up assistance from one helper? Yes. 1. [id number] ADMISSION PERFORMANCE: Setup or clean-up assistance CODE: 05 ORAL HYGIENE: ORAL HYGIENE - STEP 1: Does the patient complete the activity by him/herself with no assistance (physical, verbal/nonverbal cueing, setup/clean-up)? No. ORAL HYGIENE - STEP 2: Does the patient need only setup/clean-up assistance from one helper? Yes. 1. [id number] ADMISSION PERFORMANCE: Setup or clean-up assistance CODE: 05 TOILETING HYGIENE: TOILETING HYGIENE - STEP 1: Does the patient complete the activity by him/herself with no assistance (physical, verbal/nonverbal cueing, setup/clean-up)? No. TOILETING HYGIENE - STEP 2: Does the patient need only setup/clean-up assistance from one helper? Yes. 1. [id number] ADMISSION PERFORMANCE: Setup or clean-up assistance CODE: 05 BATHING: Not assessed/no information CODE: - DRESSING - UPPER BODY: DRESSING - UPPER BODY - STEP 1: Does the patient complete the activity by him/herself with no assistance (physical, verbal/nonverbal cueing, setup/clean-up)? No. DRESSING - UPPER BODY - STEP 2: Does the patient need only setup/clean-up assistance from one helper? No. DRESSING - UPPER BODY - STEP 3: Does the patient need only verbal/nonverbal cueing or touching/steadying/contact guard assistance fro m one helper? Yes. 1. [id number] ADMISSION PERFORMANCE: Supervision or touching assistance CODE: 04 DRESSING - LOWER BODY: DRESSING - LOWER BODY - STEP 1: Does the patient complete the activity by him/herself with no assistance (physical, verbal/nonverbal cueing, setup/clean-up)? No. DRESSING - LOWER BODY - STEP 2: Does the patient need only setup/clean-up assistance from one helper? No. DRESSING - LOWER BODY - STEP 3: Does the patient need only verbal/nonverbal cueing or touching/steadying/contact guard assistance fro m one helper? Yes. 1. [id number] ADMISSION PERFORMANCE: Supervision or touching assistance CODE: 04 PUTTING ON/TAKING OFF FOOTWEAR: FOOTWEAR - STEP 1: Does the patient complete the activity by him/herself with no assistance (physical, verbal/nonverbal cueing, setup/clean-up)? No. FOOTWEAR - STEP 2: Does the patient need only setup/clean-up assistance from one helper? No. FOOTWEAR - STEP 3: Does the patient need only verbal/nonverbal cueing or touching/steadying/contact guard assistance fro m one helper? Yes. 1. [id number] ADMISSION PERFORMANCE: Supervision or touching assistance CODE: 04 ROLL LEFT AND RIGHT: ROLL LEFT AND RIGHT - STEP 1: Does the patient complete the activity by him/herself with no assistance (physical, verbal/nonverbal cueing, setup/clean-up)? No. ROLL LEFT AND RIGHT - STEP 2: Does the patient need only setup/clean-up assistance from one helper? No. ROLL LEFT AND RIGHT - STEP 3: Does the patient need only verbal/nonverbal cueing or touching/steadying/contact guard assistance fro m one helper? Yes. 1. [id number] ADMISSION PERFORMANCE: Supervision or touching assistance CODE: 04 SIT TO LYING: SIT TO LYING - STEP 1: Does the patient complete the activity by him/herself with no assistance (physical, verbal/nonverbal cueing, setup/clean-up)? No. SIT TO LYING - STEP 2: Does the patient need only setup/clean-up assistance from one helper? No. SIT TO LYING - STEP 3: Does the patient need only verbal/nonverbal cueing or touching/steadying/contact guard assistance fro m one helper? Yes. 1. [id number] ADMISSION PERFORMANCE: Supervision or touching assistance CODE: 04 LYING TO SITTING: LYING TO SITTING ON SIDE OF BED - STEP 1: Does the patient complete the activity by him/herself with no assistance (physical, verbal/nonverbal cueing, setup/clean-up)? No. LYING TO SITTING ON SIDE OF BED - STEP 2: Does the patient need only setup/clean-up assistance from one helper? No. LYING TO SITTING ON SIDE OF BED - STEP 3: Does the patient need only verbal/nonverbal cueing or touching/steadying/contact guard assistance fro m one helper? Yes. 1. [id number] ADMISSION PERFORMANCE: Supervision or touching assistance CODE: 04 SIT TO STAND: SIT TO STAND - STEP 1: Does the patient complete the activity by him/herself with no assistance (physical, verbal/nonverbal cueing, setup/clean-up)? No. SIT TO STAND - STEP 2: Does the patient need only setup/clean-up assistance from one helper? No. SIT TO STAND - STEP 3: Does the patient need only verbal/nonverbal cueing or touching/steadying/contact guard assistance fro m one helper? Yes. 1. [id number] ADMISSION PERFORMANCE: Supervision or touching assistance CODE: 04 TRANSFERS: BED, CHAIR: CHAIR/[id number] TRANSFER - STEP 1: Does the patient complete the activity by him/herself with no assistance (physical, verbal/nonverbal cueing, setup/clean-up)? No. CHAIR/[id number] TRANSFER - STEP 2: Does the patient need only setup/clean-up assistance from one helper? No. CHAIR/[id number] TRANSFER - STEP 3: Does the patient need only verbal/nonverbal cueing or touching/steadying/contact guard assistance fro m one helper? Yes. 1. [id number] ADMISSION PERFORMANCE: Supervision or touching assistance CODE: 04 TRANSFER TOILET: TOILET TRANSFER - STEP 1: Does the patient complete the activity by him/herself with no assistance (physical, verbal/nonverbal cueing, setup/clean-up)? No. TOILET TRANSFER - STEP 2: Does the patient need only setup/clean-up assistance from one helper? No. TOILET TRANSFER - STEP 3: Does the patient need only verbal/nonverbal cueing or touching/steadying/contact guard assistance fro m one helper? Yes. 1. [id number] ADMISSION PERFORMANCE: Supervision or touching assistance CODE: TRANSFERS: CAR: Not assessed/no information CODE: - WALK 10 FEET: WALK 10 FEET - STEP 1: Does the patient complete the activity by him/herself with no assistance (physical, verbal/nonverbal cueing, setup/clean-up)? No. WALK 10 FEET - STEP 2: Does the patient need only setup/clean-up assistance from one helper? No. WALK 10 FEET - STEP 3: Does the patient need only verbal/nonverbal cueing or touching/steadying/contact guard assistance fro m one helper? Yes. 1. [id number] ADMISSION PERFORMANCE: Supervision or touching assistance CODE: WALK 50 FEET: WALK 50 FEET - STEP 1: Does the patient complete the activity by him/herself with no assistance (physical, verbal/nonverbal cueing, setup/clean-up)? No. WALK 50 FEET - STEP 2: Does the patient need only setup/clean-up assistance from one helper? No. WALK 50 FEET - STEP 3: Does the patient need only verbal/nonverbal cueing or touching/steadying/contact guard assistance fro m one helper? Yes. 1. [id number] ADMISSION PERFORMANCE: Supervision or touching assistance CODE: WALK 150 FEET: WALK 150 FEET - STEP 1: Does the patient complete the activity by him/herself with no assistance (physical, verbal/nonverbal cueing, setup/clean-up)? No. WALK 150 FEET - STEP 2: Does the patient need only setup/clean-up assistance from one helper? No. WALK 150 FEET - STEP 3: Does the patient need only verbal/nonverbal cueing or touching/steadying/contact guard assistance fro m one helper? Yes. 1. [id number] ADMISSION PERFORMANCE: Supervision or touching assistance CODE: WALK 10 FEET UNEVEN: Not assessed/no information CODE: - 1 STEP (CURB): Not assessed/no information CODE: - PICKING UP OBJECT: Not assessed/no information CODE: - DOES THE PATIENT USE A WHEELCHAIR/SCOOTER? Q1. DOES THE PATIENT USE A WHEELCHAIR/SCOOTER?: Yes CODE: 1 WHEEL 50 FEET WITH TWO TURNS: WHEEL 50 FEET WITH TWO TURNS - STEP 1: Does the patient complete the activity by him/herself with no assistance (physical, verbal/nonverbal cueing, setup/clean-up)? No. WHEEL 50 FEET WITH TWO TURNS - STEP 2: Does the patient need only setup/clean-up assistance from one helper? No. WHEEL 50 FEET WITH TWO TURNS - STEP 3: Does the patient need only verbal/nonverbal cueing or touching/steadying/contact guard assistance fro m one helper? Yes. 1. [id number] ADMISSION PERFORMANCE: Supervision or touching assistance CODE: 04 INDICATE THE TYPE OF WHEELCHAIR/SCOOTER USED: RR1. INDICATE THE TYPE OF WHEELCHAIR/SCOOTER USED.: Manual CODE: 1 WHEEL 150 FEET: WHEEL 150 FEET - STEP 1: Does the patient complete the activity by him/herself with no assistance (physical, verbal/nonverbal cueing, setup/clean-up)? No. WHEEL 150 FEET - STEP 2: Does the patient need only setup/clean-up assistance from one helper? No. WHEEL 150 FEET - STEP 3: Does the patient need only verbal/nonverbal cueing or touching/steadying/contact guard assistance fro m one helper? Yes. 1. [id number] ADMISSION PERFORMANCE: Supervision or touching assistance CODE: 04 INDICATE THE TYPE OF WHEELCHAIR/SCOOTER USED: SS1. INDICATE THE TYPE OF WHEELCHAIR/SCOOTER USED.: Manual CODE: 1 BLADDER AND BOWEL: H350. BLADDER CONTINENCE (3-DAY ASSESSMENT PERIOD): Always continent (no documented incontinence) CODE: 0 H400. BOWEL CONTINENCE (3-DAY ASSESSMENT PERIOD): Always continent CODE: 0 SIGNATURE PANEL: The following modified sections: 1. [id number] Admission Performance, 1. [id number] Admission Performance, 1. HR0872K Admission Performance, 1. PN9301f Admission Performance, 1. NP2726z Admission Performance, 1. NG6434r Admission Performance, 1. [id number] Admission Performance, 1. TI5683Q Admission Performance , 1. MN2654Y Admission Performance, 1. [id number] Admission Performance, 1. XS5550C Admission Performanc e, 1. FY7826B Admission Performance, 1. TG4396B Admission Performance, 1. ZN1028H Admission Performan ce, 1. [id number] Admission Performance, Q1. Does the patient use a wheelchair/scooter?, 1. HN2232A Admi ssion Performance, RR1. Indicate the type of wheelchair/scooter used., 1. MD7620R Admission Performan ce, Code, SS1. Indicate the type of wheelchair/scooter used., H350. Bladder Continence (3-day assessm ent period), H400. Bowel Continence (3-day assessment period) were [electronically] signed by Diandra TrejoNNimesh on Sat Oct 04 2020 15:32:03 GMT-0600 (Central Standard Time)
[2020-10-04] MEDS: BACLOFEN 10 MG TAB PO SCH (19:22)
[2020-10-04] MEDS: TRAZODONE 50 MG TABLET PO SCH (19:25)
[2020-10-05] MEDS: ONDANSETRON 4 MG (ODT) TAB PO PRN (00:48)
[2020-10-05] MEDS: ACETAMINOPHEN 500 MG TAB PO PRN ×2 (03:38→09:34)
[2020-10-05] MEDS: LEVOTHYROXINE SOD 0.075 MG TAB PO SCH (06:36)
[2020-10-05] MEDS: PANTOPRAZOLE 40MG TABLET PO SCH (06:36)
[2020-10-05 07:59] LABS: Urine Appearance CLOUDY; Urine Bilirubin NEGATIVE (NEG); Urine Blood 1+ (NEG); Urine Color YELLOW; Urine Glucose NEGATIVE (NEG); Urine Microscopic Reflex ORDER UMIC; Urine Protein NEGATIVE (NEG); Urine Specific Gravity <=1.005 (1.005-1.030); Urine Urobilinogen 0.2 mg/dL (0.2-1.0); Urine pH 7.5 (5.0-7.0)
[2020-10-05] MEDS: ENSURE HIGH PROTEIN 237 ML CAN PO SCH ×2 (08:00→19:48)
[2020-10-05] MEDS: DOCUSATE NA/SENNA CONC 1 TAB PO SCH ×3 (08:00→19:52)
[2020-10-05] MEDS: JUVEN PACKET PO SCH ×2 (08:00→19:48)
[2020-10-05 08:02] LABS: Absolute Lymphocytes (CBC) 1.9 K/uL (0.7-4.9); Hematocrit 31.4 % (36.0-45.0); Lymphocytes % 17.4 % (15.3-44.8); MPV 8.1 fL (7.6-11.3); RBC Red Blood Cell Count 3.26 M/uL (3.86-4.86)
[2020-10-05 08:08] LABS: Urine Bacteria <20 /HPF (<20)
[2020-10-05 08:10] LABS: Magnesium 2.4 mg/dL (1.8-2.4); Potassium 4.3 mmol/L (3.5-5.1)
[2020-10-05] MEDS: MAGNESIUM OXIDE 400 MG TAB PO SCH (09:34)
[2020-10-05] MEDS: ENOXAPARIN 40 MG/0.4 ML SQ SCH (09:34)
[2020-10-05] MEDS: AMLODIPINE 5 MG TAB PO SCH (09:34)
[2020-10-05] MEDS: GABAPENTIN 300 MG CAP PO SCH ×2 (09:35→19:46)
[2020-10-05] MEDS: LIDOCAINE 4% PATCH TOP SCH (09:35)
[2020-10-05] MEDS: GUAIFENESIN 600 MG SA TAB PO SCH ×2 (09:35→19:46)
[2020-10-05] MEDS: CRANBERRY FRUIT EXTRACT 200 MG CAP PO SCH ×2 (09:37→19:47)
[2020-10-05] MEDS: BENAZEPRIL 10 MG TAB PO SCH ×2 (09:37→19:47)
[2020-10-05] MEDS: FLUTICASONE 50MCG NASAL SPRAY NAS SCH ×2 (09:38→19:56)
[2020-10-05] MEDS ORDERED: levoFLOXacin 500 MG TAB PO ONE (09:50)
--- NOTE | 2020-10-05 14:04 | PN ---
Date of Progress Note: 10/05/2020 Subjective: The patient was seen this morning for followup. No new complaints or problems reported. She was lying in bed. Last night, she had frequent urination and some dysuria. Objective: Vital Signs: Reviewed. HEENT: Unremarkable. Lungs: Clear to auscultation. Heart: Sounds normal. Abdomen: Soft. Bowel sounds normal. No guarding, rigidity, tenderness, or distention. Extremities: No leg edema. Laboratory Data: White count 10.7, hemoglobin 10.5, platelets 390. Sodium 139, potassium 4.3, chlor delio 107, bicarb 26, BUN 18, creatinine 0.87, glucose 100. Urinalysis; 3+ leukocyte esterase, wbc's 1 0-20, bacteria less than 20. Impression: 1.Urinary tract infection. 2.Hypertension. 3.Hip fracture. 4.Constipation. Plan: We will continue current medication for constipation and antihypertensive medication. The cassidy christianson has signs and symptoms of urinary tract infection and after reviewing her urine test and blood t est results, we will start her on antibiotic, Levaquin 500 mg by mouth daily. Await on the urine cul ture results and if necessary, we will have to make adjustment on antibiotic depending on the urine c ulture results. Meanwhile, continue other current medical management and we will see her tomorrow for followup. Details were discussed with the patient. HUBERT/MODL Voice ID: [id number] Report ID: [id number]
[2020-10-05] MEDS: BACLOFEN 10 MG TAB PO SCH (19:48)
[2020-10-05] MEDS: TRAZODONE 50 MG TABLET PO SCH (19:56)
[2020-10-06] MEDS: TRAMADOL HCL 50 MG TAB PO PRN ×2 (00:37→06:49)
[2020-10-06] MEDS: LEVOTHYROXINE SOD 0.075 MG TAB PO SCH (06:34)
[2020-10-06] MEDS: PANTOPRAZOLE 40MG TABLET PO SCH ×2 (06:34→16:19)
[2020-10-06] MEDS: FLUTICASONE 50MCG NASAL SPRAY NAS SCH ×2 (06:35→19:15)
[2020-10-06] MEDS: ENOXAPARIN 40 MG/0.4 ML SQ SCH (06:35)
[2020-10-06] MEDS: ONDANSETRON 4 MG (ODT) TAB PO PRN ×3 (07:51→16:18)
[2020-10-06] MEDS: LIDOCAINE 4% PATCH TOP SCH (07:52)
[2020-10-06] MEDS: AMLODIPINE 5 MG TAB PO SCH ×2 (08:00→11:21)
[2020-10-06] MEDS: BENAZEPRIL 10 MG TAB PO SCH ×3 (08:00→19:16)
[2020-10-06] MEDS: DOCUSATE NA/SENNA CONC 1 TAB PO SCH ×3 (08:00→19:16)
[2020-10-06] MEDS: JUVEN PACKET PO SCH ×3 (08:00→19:27)
[2020-10-06] MEDS: ENSURE HIGH PROTEIN 237 ML CAN PO SCH ×2 (08:00→19:27)
[2020-10-06] MEDS: GABAPENTIN 300 MG CAP PO SCH ×2 (08:15→19:16)
[2020-10-06] MEDS: CRANBERRY FRUIT EXTRACT 200 MG CAP PO SCH ×2 (08:15→19:16)
[2020-10-06] MEDS: GUAIFENESIN 600 MG SA TAB PO SCH ×2 (08:15→19:27)
[2020-10-06] MEDS: levoFLOXacin 500 MG TAB PO SCH (08:15)
[2020-10-06] MEDS: MAGNESIUM OXIDE 400 MG TAB PO SCH (08:16)
[2020-10-06] MEDS ORDERED: MAGNES/ALUMIN/SIMET 30ML UCUP PO ONE (13:23)
[2020-10-06] MEDS: ACETAMINOPHEN 500 MG TAB PO PRN (19:15)
[2020-10-06] MEDS: BACLOFEN 10 MG TAB PO SCH (19:16)
--- NOTE | 2020-10-06 19:25 | R.PN ---
PROGRESS NOTES ENCOUNTER DATE AND TIME: 10/06/2020 19:21 (CDT) NAME JOSUE DU DATE OF : 1930 DATE OF ADMISSION: 09/25/2020 10:31 ([facility]) LEFT HIP FRACTURECHIEF COMPLAINT: Left hip fracture, hypertension, debility SUBJECTIVE: Pt denied any depression. Pt denied any Shortness of Breath. WBC 9.7, Hgb 10.3, prealbumin 15.7, calcium 8.8, UA 1+ esterase, 20-50 bacteria, 10-20 WBC, cultures are negative. Therapeutic exercises made with minimum assistance. VITAL SIGNS Temperature: 97.9 F SBP/DBP: 141/67 Pulse: 58 Resp: 16 MEDICATION ALLERGIES: CODEINE PENICILLIN SULFA ENVIRONMENTAL ALLERGIES: - Substance Allergies None Known - Other Allergies None Known NURSING: - Shower allowing shower - Skin care per protocol PRECAUTIONS: - Anterior Hip Precaution No abduction No active extension No adduction across midline No external rotation No hip flexion >90 degrees No internal rotation - Posterior Hip Precaution No adduction across midline No external rotation No hip flexion >90 degrees No internal rotation No wheel chair propulsion - Weight Bearing Precaution WBAT left LE ACTIVITIES OOB only with supervision THERAPIES: - Dietary and Nutrition Adequate Nutrition. Nutritional Education. Nutritional Supplements. PHYSICAL EXAM - Gen Alert and awake Lying in bed No apparent distress Oriented to: person, time, and place - Skin Left hip incision is intact. No tingling - Eyes No abnormalities - ENMT No abnormalities - Neck No stiffness - CVS RRR - Chest Clear - Resp No wheezing - Abd + bowel sounds - GI Soft Deferred - Continent - Ext Left hip surgical site has good hemostasis. - MSK 4+/5 weakness in left lower extremity - Neuro 4/5 strength left lower extremities. - Psych No abnormalities ASSESSMENT: Pt. is a 89 yo Right-handed female of unknown race.On 09/21/2020 she was admitted to [facility] with diagnosis LEFT HIP FRACTURE.Her impairment category is Orthopaedic Disorders 08 - Unila teral Hip Fracture (.11).Pre-morbidly, Pt. was independent/mod-I in Locomotion, Safety Awareness, B alance, and Endurance; and she had good Sphincter Control and Transfers Control.Currently, she has de ficits of Balance, Safety Awareness, Locomotion, Sphincter Control, Self-Care, Communication, Enduran ce, and Transfers Control.Pt. is now referred to [facility] for acute in-patie nt rehabilitation in order to maximize patient's functional independence in activities of daily livin g, strength, ROM, and mobility.- Rehab Goal Patient has realistic goal of being discharged at assistance level 7-Ind to reside at Home with Pt s elf. MDM/PLAN: - Physical Therapy Decreased range of motion - to improve, our physical therapists will perform initial evaluation of p t's status upon admission and devise an individualized program for increasing patient's Range of Obed on. Inability to transfer - to improve, our physical therapists will perform initial evaluation of pt's status upon admission and devise an individualized program for Bed mobility Need for home safety evaluation - to improve, our physical therapists will perform initial evaluatio n of pt's status upon admission and devise an individualized program for Home Evaluation Need in caregiver upon discharge - to improve, our physical therapists will perform initial evaluati on of pt's status upon admission and devise an individualized program for Caregiver Training New precaution - to improve, our physical therapists will perform initial evaluation of pt's status upon admission and devise an individualized program for Patient precaution education Poor balance - to improve, our physical therapists will perform initial evaluation of pt's status up on admission and devise an individualized program for Balance Training Poor endurance - to improve, our physical therapists will perform initial evaluation of pt's status upon admission and devise an individualized program for Endurance Training Achieving independence - to improve, our physical therapists will perform initial evaluation of pt's status upon admission and devise an individualized program for Community Reintegration Activities - Occupational Therapy ADL deficits - to improve, our occupation therapists will perform initial evaluation of pt's status upon admission and devise an individualized program for Bathing, Bed mobility, Community Reintegratio n, Cooking, Dressing, Eating, Fine Motor Skills, Grooming, Homemaking, Kitchen Mobility, Laundry, Pat ient Education, Safety Awareness, Splinting - Positioning, Transfers(Toilet, Tub, Shower), and Wheel Chair Management Need for child care centre director - to improve, our occupation therapists will perform initial evaluation of pt's status upon admission and devise an individualized program for Caregiver Training - Other See attached MAR (Medication Administration Record) - Anterior Hip Precaution No abduction No active extension No adduction across midline No external rotation No hip flexion >90 degrees No internal rotation - Diet - Liquid Texture Continue Regular - Tube Feed Continue N/A - Diet Type Continue Regular - Posterior Hip Precaution No adduction across midline No external rotation No hip flexion >90 degrees No internal rotation No wheel chair propulsion - Weight Bearing Precaution WBAT left LE - Skin care per protocol - Diet - Solid Texture Continue Regular - Shower allowing shower FUNCTIONAL STATUS: UPDATED AT WEEKLY TEAM CONFERENCE - Bladder Same accident frequency: 7-Ind - No accidents in the past 7 days - Bowel Same accident frequency: 7-Ind - No accidents in the past 7 days - Walking Same score based on distance walked: 0(N/A) Same score based on distance walked: 1(<=50ft) - Wheelchair Same score based on distance traveled: 0(N/A) FUNCTIONAL STATUS: - Self-Care A. Eating Audie B. Grooming Audie C. Bathing Reta D. Dressing - Upper Reta E. Dressing - Lower modA F. Toileting Reta - Sphincter Control G. Bladder control Reta H. Bowel control sup - Transfers Control I. Bed/Chair/Wheelchair Reta J. Toilet Reta K. Tub/Shower modA - Locomotion L. Walk/Wheelchair (B) modA M. Stairs ADNO - Communication N. Comprehension (B) Audie O. Expression (B) Audie - Social Cognition P. Social Interaction Audie Q. Problem Solving Reta R. Memory Reta - Endurance Fair - Balance Fair - Safety Awareness Fair QI SCORES: - Self-Care A. Eating 03-Partial/moderate assistance B. Oral hygiene 02-Substantial/maximal assistance C. Toileting hygiene 02-Substantial/maximal assistance E. Shower/bathe self 02-Substantial/maximal assistance F. Upper body dressing 02-Substantial/maximal assistance G. Lower body dressing 02-Substantial/maximal assistance H. Putting on/taking off footwear 88-Not attempted due to medical condition or safety concerns - Mobility A. Roll left and right 03-Partial/moderate assistance B. Sit to lying 02-Substantial/maximal assistance C. Lying to sitting on side of bed 02-Substantial/maximal assistance D. Sit to stand 02-Substantial/maximal assistance E. Chair/[id number]-xl-[id number] transfer 02-Substantial/maximal assistance F. Toilet transfer 02-Substantial/maximal assistance G. Car transfer 88-Not attempted due to medical condition or safety concerns I. Walk 10 feet 88-Not attempted due to medical condition or safety concerns J. Walk 50 feet with two turns 88-Not attempted due to medical condition or safety concerns K. Walk 150 feet 88-Not attempted due to medical condition or safety concerns L. Walking 10 feet on uneven surfaces 88-Not attempted due to medical condition or safety concerns M. 1 step (curb) 88-Not attempted due to medical condition or safety concerns N. 4 steps 88-Not attempted due to medical condition or safety concerns O. 12 steps 88-Not attempted due to medical condition or safety concerns P. Picking up object 88-Not attempted due to medical condition or safety concerns R. Wheel 50 feet with two turns 88-Not attempted due to medical condition or safety concerns S. Wheel 150 feet 88-Not attempted due to medical condition or safety concerns - Bladder and Bowel Bladder continence Bowel continence - Endurance Good - Balance Good - Safety Awareness Good CURRENT FUNC. DEFICITS: Self-Care and Mobility SIGNATURE PANEL: (CDT)
[2020-10-06] MEDS: TRAZODONE 50 MG TABLET PO SCH (19:28)
[2020-10-07] MEDS: ENOXAPARIN 40 MG/0.4 ML SQ SCH (06:53)
[2020-10-07] MEDS: LEVOTHYROXINE SOD 0.075 MG TAB PO SCH (06:53)
[2020-10-07] MEDS: PANTOPRAZOLE 40MG TABLET PO SCH ×2 (06:53→17:01)
[2020-10-07] MEDS: FLUTICASONE 50MCG NASAL SPRAY NAS SCH ×2 (06:54→19:42)
[2020-10-07] MEDS: LIDOCAINE 4% PATCH TOP SCH (06:54)
--- NOTE | 2020-10-07 07:25 | PN ---
Date of Progress Note: 10/06/2020 Subjective: The patient was seen this morning for followup. No new complaints or problems reported by her. Lying in bed. Not in distress. Objective: Vital Signs: Reviewed. HEENT: Unremarkable. Lungs: Clear to auscultation. Heart: Sounds normal. Abdomen: Soft. Bowel sounds normal. No guarding, rigidity, tenderness, or distention. Extremities: No leg edema. Impression: 1.Left hip fracture. 2.Hypertension. 3.Insomnia. 4.Anemia. 5.Constipation. Plan: We will continue current medication. Continue current antihypertensive medication and current medication per order. Continue current DVT prophylaxis and physical therapy to be provided under gu idance of Dr. Oconnor. I will see her tomorrow for followup. HUBERT/MODL Voice ID: [id number] Report ID: [id number]
[2020-10-07] MEDS: GUAIFENESIN 600 MG SA TAB PO SCH ×3 (08:00→19:44)
[2020-10-07] MEDS: ENSURE HIGH PROTEIN 237 ML CAN PO SCH (08:15)
[2020-10-07] MEDS: JUVEN PACKET PO SCH ×2 (08:15→19:44)
[2020-10-07] MEDS: TRAMADOL HCL 50 MG TAB PO PRN ×2 (08:16→11:57)
[2020-10-07] MEDS: DOCUSATE NA/SENNA CONC 1 TAB PO SCH ×2 (08:17→19:43)
[2020-10-07] MEDS: MAGNESIUM OXIDE 400 MG TAB PO SCH (08:17)
[2020-10-07] MEDS: GABAPENTIN 300 MG CAP PO SCH ×2 (08:18→19:43)
[2020-10-07] MEDS: levoFLOXacin 500 MG TAB PO SCH (08:18)
[2020-10-07] MEDS: AMLODIPINE 5 MG TAB PO SCH (08:18)
[2020-10-07] MEDS: BENAZEPRIL 10 MG TAB PO SCH ×2 (08:18→19:42)
[2020-10-07] MEDS: CRANBERRY FRUIT EXTRACT 200 MG CAP PO SCH ×2 (08:18→19:43)
[2020-10-07] MEDS: ACETAMINOPHEN 500 MG TAB PO PRN ×2 (10:32→19:43)
[2020-10-07] MEDS: ONDANSETRON 4 MG (ODT) TAB PO PRN (13:15)
--- NOTE | 2020-10-07 17:30 | R.PN ---
PROGRESS NOTES ENCOUNTER DATE AND TIME: 10/07/2020 17:26 (CDT) NAME JOSUE DU DATE OF : 1930 DATE OF ADMISSION: 09/25/2020 10:31 ([facility]) LEFT HIP FRACTURECHIEF COMPLAINT: Left hip fracture, hypertension, debility SUBJECTIVE: Pt denied any depression. Pt denied any Shortness of Breath. WBC 9.7, Hgb 10.3, prealbumin 15.7, calcium 8.8, UA 1+ esterase, 20-50 bacteria, 10-20 WBC, cultures are negative. Posterior propelled wheelchair 250' with minimum assistance. Ambulated 420' with standby assistance using a rolling walker. VITAL SIGNS Temperature: 97.7 F SBP/DBP: 155/69 Pulse: 57 Resp: 16 MEDICATION ALLERGIES: CODEINE PENICILLIN SULFA ENVIRONMENTAL ALLERGIES: - Substance Allergies None Known - Other Allergies None Known NURSING: - Shower allowing shower - Skin care per protocol PRECAUTIONS: - Anterior Hip Precaution No abduction No active extension No adduction across midline No external rotation No hip flexion >90 degrees No internal rotation - Posterior Hip Precaution No adduction across midline No external rotation No hip flexion >90 degrees No internal rotation No wheel chair propulsion - Weight Bearing Precaution WBAT left LE ACTIVITIES OOB only with supervision THERAPIES: - Dietary and Nutrition Adequate Nutrition. Nutritional Education. Nutritional Supplements. PHYSICAL EXAM - Gen Alert and awake Lying in bed No apparent distress Oriented to: person, time, and place - Skin Left hip incision is intact. No tingling - Eyes No abnormalities - ENMT No abnormalities - Neck No stiffness - CVS RRR - Chest Clear - Resp No wheezing - Abd + bowel sounds - GI Soft Deferred - Continent - Ext Left hip surgical site has good hemostasis. - MSK 4+/5 weakness in left lower extremity - Neuro 4/5 strength left lower extremities. - Psych No abnormalities ASSESSMENT: Pt. is a 89 yo Right-handed female of unknown race.On 09/21/2020 she was admitted to [facility] with diagnosis LEFT HIP FRACTURE.Her impairment category is Orthopaedic Disorders 08 - Unila teral Hip Fracture (11).Pre-morbidly, Pt. was independent/mod-I in Locomotion, Safety Awareness, B alance, and Endurance; and she had good Sphincter Control and Transfers Control.Currently, she has de ficits of Balance, Safety Awareness, Locomotion, Sphincter Control, Self-Care, Communication, Enduran ce, and Transfers Control.Pt. is now referred to [facility] for acute in-patie nt rehabilitation in order to maximize patient's functional independence in activities of daily livin g, strength, ROM, and mobility.- Rehab Goal Patient has realistic goal of being discharged at assistance level 7-Ind to reside at Home with Pt s elf. MDM/PLAN: - Physical Therapy Decreased range of motion - to improve, our physical therapists will perform initial evaluation of p t's status upon admission and devise an individualized program for increasing patient's Range of Obed on. Inability to transfer - to improve, our physical therapists will perform initial evaluation of pt's status upon admission and devise an individualized program for Bed mobility Need for home safety evaluation - to improve, our physical therapists will perform initial evaluatio n of pt's status upon admission and devise an individualized program for Home Evaluation Need in caregiver upon discharge - to improve, our physical therapists will perform initial evaluati on of pt's status upon admission and devise an individualized program for Caregiver Training New precaution - to improve, our physical therapists will perform initial evaluation of pt's status upon admission and devise an individualized program for Patient precaution education Poor balance - to improve, our physical therapists will perform initial evaluation of pt's status up on admission and devise an individualized program for Balance Training Poor endurance - to improve, our physical therapists will perform initial evaluation of pt's status upon admission and devise an individualized program for Endurance Training Achieving independence - to improve, our physical therapists will perform initial evaluation of pt's status upon admission and devise an individualized program for Community Reintegration Activities - Occupational Therapy ADL deficits - to improve, our occupation therapists will perform initial evaluation of pt's status upon admission and devise an individualized program for Bathing, Bed mobility, Community Reintegratio n, Cooking, Dressing, Eating, Fine Motor Skills, Grooming, Homemaking, Kitchen Mobility, Laundry, Pat ient Education, Safety Awareness, Splinting - Positioning, Transfers(Toilet, Tub, Shower), and Wheel Chair Management Need for hearing care practitioner - to improve, our occupation therapists will perform initial evaluation of pt's status upon admission and devise an individualized program for Caregiver Training - Other See attached MAR (Medication Administration Record) - Anterior Hip Precaution No abduction No active extension No adduction across midline No external rotation No hip flexion >90 degrees No internal rotation - Diet - Liquid Texture Continue Regular - Tube Feed Continue N/A - Diet Type Continue Regular - Posterior Hip Precaution No adduction across midline No external rotation No hip flexion >90 degrees No internal rotation No wheel chair propulsion - Weight Bearing Precaution WBAT left LE - Skin care per protocol - Diet - Solid Texture Continue Regular - Shower allowing shower FUNCTIONAL STATUS: UPDATED AT WEEKLY TEAM CONFERENCE - Bladder Same accident frequency: 7-Ind - No accidents in the past 7 days - Bowel Same accident frequency: 7-Ind - No accidents in the past 7 days - Walking Same score based on distance walked: 0(N/A) Same score based on distance walked: 1(<=50ft) - Wheelchair Same score based on distance traveled: 0(N/A) FUNCTIONAL STATUS: - Self-Care A. Eating Audie B. Grooming Audie C. Bathing Reta D. Dressing - Upper Reta E. Dressing - Lower modA F. Toileting Reta - Sphincter Control G. Bladder control Reta H. Bowel control sup - Transfers Control I. Bed/Chair/Wheelchair Reta J. Toilet Reta K. Tub/Shower modA - Locomotion L. Walk/Wheelchair (B) modA M. Stairs ADNO - Communication N. Comprehension (B) Audie O. Expression (B) Audie - Social Cognition P. Social Interaction Audie Q. Problem Solving Reta R. Memory Reta - Endurance Fair - Balance Fair - Safety Awareness Fair QI SCORES: - Self-Care A. Eating 03-Partial/moderate assistance B. Oral hygiene 02-Substantial/maximal assistance C. Toileting hygiene 02-Substantial/maximal assistance E. Shower/bathe self 02-Substantial/maximal assistance F. Upper body dressing 02-Substantial/maximal assistance G. Lower body dressing 02-Substantial/maximal assistance H. Putting on/taking off footwear 88-Not attempted due to medical condition or safety concerns - Mobility A. Roll left and right 03-Partial/moderate assistance B. Sit to lying 02-Substantial/maximal assistance C. Lying to sitting on side of bed 02-Substantial/maximal assistance D. Sit to stand 02-Substantial/maximal assistance E. Chair/kdz-mi-cutvh transfer 02-Substantial/maximal assistance F. Toilet transfer 02-Substantial/maximal assistance G. Car transfer 88-Not attempted due to medical condition or safety concerns I. Walk 10 feet 88-Not attempted due to medical condition or safety concerns J. Walk 50 feet with two turns 88-Not attempted due to medical condition or safety concerns K. Walk 150 feet 88-Not attempted due to medical condition or safety concerns L. Walking 10 feet on uneven surfaces 88-Not attempted due to medical condition or safety concerns M. 1 step (curb) 88-Not attempted due to medical condition or safety concerns N. 4 steps 88-Not attempted due to medical condition or safety concerns O. 12 steps 88-Not attempted due to medical condition or safety concerns P. Picking up object 88-Not attempted due to medical condition or safety concerns R. Wheel 50 feet with two turns 88-Not attempted due to medical condition or safety concerns S. Wheel 150 feet 88-Not attempted due to medical condition or safety concerns - Bladder and Bowel Bladder continence Bowel continence - Endurance Good - Balance Good - Safety Awareness Good CURRENT FUNC. DEFICITS: Self-Care and Mobility SIGNATURE PANEL: (CDT)
[2020-10-07] MEDS: BACLOFEN 10 MG TAB PO SCH (19:43)
[2020-10-07] MEDS: TRAZODONE 50 MG TABLET PO SCH (19:44)
--- NOTE | 2020-10-08 05:47 | PN ---
Date of Progress Note: 10/07/2020 Subjective: The patient was seen this morning for followup. She was lying in bed, not in any distre ss. Denies any new complaints. No constipation problem reported by her. Objective: Vital Signs: Reviewed. HEENT: Unremarkable. Lungs: Clear to auscultation. Heart: Sounds normal. Abdomen: Soft. Bowel sounds normal. No guarding, rigidity, tenderness, or distention. Extremities: No leg edema. Impression: 1.Hypertension. 2.Left hip fracture. 3.Constipation. 4.Insomnia. 5.Anemia. Plan: We will go ahead and continue current medications. Continue physical therapy under guidance o blaine Oconnor. We will continue current antihypertensive medication and DVT prophylaxis per order. I will see her tomorrow for followup. HUBERT/MODL Voice ID: [id number] Report ID: [id number]
[2020-10-08] MEDS: LEVOTHYROXINE SOD 0.075 MG TAB PO SCH (06:30)
[2020-10-08] MEDS: ENOXAPARIN 40 MG/0.4 ML SQ SCH (06:31)
[2020-10-08] MEDS: FLUTICASONE 50MCG NASAL SPRAY NAS SCH ×2 (06:31→21:26)
[2020-10-08] MEDS: PANTOPRAZOLE 40MG TABLET PO SCH ×2 (06:31→16:44)
[2020-10-08] MEDS: GABAPENTIN 300 MG CAP PO SCH ×2 (08:29→21:21)
[2020-10-08] MEDS: GUAIFENESIN 600 MG SA TAB PO SCH ×2 (08:30→21:21)
[2020-10-08] MEDS: CRANBERRY FRUIT EXTRACT 200 MG CAP PO SCH ×2 (08:30→21:21)
[2020-10-08] MEDS: AMLODIPINE 5 MG TAB PO SCH (08:30)
[2020-10-08] MEDS: DOCUSATE NA/SENNA CONC 1 TAB PO SCH ×2 (08:30→21:22)
[2020-10-08] MEDS: JUVEN PACKET PO SCH ×2 (08:31→20:00)
[2020-10-08] MEDS: levoFLOXacin 500 MG TAB PO SCH (08:31)
[2020-10-08] MEDS: MAGNESIUM OXIDE 400 MG TAB PO SCH (08:31)
[2020-10-08] MEDS: BENAZEPRIL 10 MG TAB PO SCH ×2 (08:31→21:25)
[2020-10-08] MEDS: TRAMADOL HCL 50 MG TAB PO PRN ×2 (08:32→12:01)
[2020-10-08] MEDS: ACETAMINOPHEN 500 MG TAB PO PRN (10:45)
[2020-10-08] MEDS: LIDOCAINE 4% PATCH TOP SCH (11:16)
[2020-10-08] MEDS: ONDANSETRON 4 MG (ODT) TAB PO PRN (11:21)
[2020-10-08] MEDS: BACLOFEN 10 MG TAB PO SCH (21:21)
[2020-10-08] MEDS: TRAZODONE 50 MG TABLET PO SCH (21:23)
[2020-10-09] MEDS: PANTOPRAZOLE 40MG TABLET PO SCH ×2 (06:33→16:29)
[2020-10-09] MEDS: LEVOTHYROXINE SOD 0.075 MG TAB PO SCH (06:33)
[2020-10-09] MEDS: ENOXAPARIN 40 MG/0.4 ML SQ SCH (06:33)
[2020-10-09] MEDS: ACETAMINOPHEN 500 MG TAB PO PRN ×2 (06:50→12:53)
[2020-10-09 07:12] LABS: Absolute Lymphocytes (CBC) 1.7 K/uL (0.7-4.9); Basophils % 1.3 % (0-1.3); Hematocrit 32.5 % (36.0-45.0); Lymphocytes % 24.2 % (15.3-44.8); MPV 8.7 fL (7.6-11.3); RBC Red Blood Cell Count 3.36 M/uL (3.86-4.86)
[2020-10-09 07:22] LABS: Albumin 2.6 g/dL (3.4-5.0); Magnesium 2.5 mg/dL (1.8-2.4); Prealbumin 22.9 mg/dL (20-40)
[2020-10-09] MEDS: LIDOCAINE 4% PATCH TOP SCH (07:40)
[2020-10-09] MEDS: JUVEN PACKET PO SCH ×2 (08:00→19:56)
[2020-10-09] MEDS: DOCUSATE NA/SENNA CONC 1 TAB PO SCH ×3 (08:00→19:55)
[2020-10-09] MEDS: GABAPENTIN 300 MG CAP PO SCH ×2 (08:26→19:55)
[2020-10-09] MEDS: CRANBERRY FRUIT EXTRACT 200 MG CAP PO SCH ×2 (08:26→19:55)
[2020-10-09] MEDS: levoFLOXacin 500 MG TAB PO SCH (08:26)
[2020-10-09] MEDS: GUAIFENESIN 600 MG SA TAB PO SCH ×2 (08:26→19:55)
[2020-10-09] MEDS: AMLODIPINE 5 MG TAB PO SCH (08:27)
[2020-10-09] MEDS: MAGNESIUM OXIDE 400 MG TAB PO SCH (08:27)
[2020-10-09] MEDS: TRAMADOL HCL 50 MG TAB PO PRN (09:28)
[2020-10-09] MEDS: BENAZEPRIL 10 MG TAB PO SCH ×2 (09:30→19:57)
[2020-10-09] MEDS: FLUTICASONE 50MCG NASAL SPRAY NAS SCH ×2 (09:31→19:55)
--- NOTE | 2020-10-09 09:45 | P.RH.PN ---
Estimated Length of Stay: 17 Expected Discharge Date: 10/11/20 Discharge Disposition Plan: Home Family Support: Yes [facility] Goal: Mobility, Transfers, Self Care Vital Signs: Last Vital Signs Temp 98.7 F 10/09/20 07:27 Pulse 58 10/09/20 09:30 Resp 16 10/09/20 09:28 BP 154/64 H 10/09/20 09:30 Pulse Ox 96 10/09/20 09:28 Laboratory: Laboratory Last Values WBC 6.80 K/uL (4.3-10.9) D 10/09/20 06:28 RBC 3.36 M/uL (3.86-4.86) L 10/09/20 06:28 Hgb 10.9 g/dL (12.0-15.0) L 10/09/20 06:28 Hct 32.5 % (36.0-45.0) L 10/09/20 06:28 MCV 96.5 fL (80-100) 10/09/20 06:28 MCH 32.4 pg (27.0-35.0) 10/09/20 06:28 MCHC 33.6 g/dL (32.0-36.0) 10/09/20 06:28 RDW 14.5 % (12.1-15.2) 10/09/20 06:28 Plt Count 419 K/uL (152-406) H 10/09/20 06:28 MPV 8.7 fL (7.6-11.3) 10/09/20 06:28 Neutrophils % 58.7 % (41.7-73.7) 10/09/20 06:28 Lymphocytes % 24.2 % (15.3-44.8) 10/09/20 06:28 Monocytes % 9.8 % (3.3-12.3) 10/09/20 06:28 Eosinophils % 6.0 % (0-4.4) H 10/09/20 06:28 Basophils % 1.3 % (0-1.3) 10/09/20 06:28 Absolute Neutrophils 4.0 K/uL (1.8-8.0) 10/09/20 06:28 Absolute Lymphocytes 1.7 K/uL (0.7-4.9) 10/09/20 06:28 Absolute Monocytes 0.7 K/uL (0.1-1.3) 10/09/20 06:28 Absolute Eosinophils 0.4 K/uL (0-0.5) 10/09/20 06:28 Absolute Basophils 0.1 K/uL (0-0.5) 10/09/20 06:28 Sodium 141 mmol/L (136-145) 10/09/20 06:28 Potassium 5.0 mmol/L (3.5-5.1) 10/09/20 06:28 Chloride 108 mmol/L (98-107) H 10/09/20 06:28 Carbon Dioxide 29 mmol/L (21-32) 10/09/20 06:28 BUN 33 mg/dL (7-18) H 10/09/20 06:28 Creatinine 1.04 mg/dL (0.55-1.3) 10/09/20 06:28 Estimated GFR 50 mL/min (=/>90) L 10/09/20 06:28 Glucose 88 mg/dL (74-106) 10/09/20 06:28 Calcium 8.7 mg/dL (8.5-10.1) 10/09/20 06:28 Magnesium 2.5 mg/dL (1.8-2.4) H 10/09/20 06:28 Albumin 2.6 g/dL (3.4-5.0) L 10/09/20 06:28 Prealbumin 22.9 mg/dL (20-40) 10/09/20 06:28 Urine Color Yellow 10/05/20 07:20 Urine Appearance Cloudy 10/05/20 07:20 Urine pH 7.5 (5.0-7.0) H 10/05/20 07:20 Ur Specific [place] <=1.005 (1.005-1.030) 10/05/20 07:20 Glucose (UA)(Auto) Negative (NEG) 10/05/20 07:20 Urine Ketones Negative (NEG) 10/05/20 07:20 Urine Blood 1+ (NEG) H 10/05/20 07:20 Urine Nitrite Negative (NEG) 10/05/20 07:20 Urine Bilirubin Negative (NEG) 10/05/20 07:20 Urine Urobilinogen 0.2 mg/dL (0.2-1.0) 10/05/20 07:20 Ur Leukocyte Esterase 3+ (NEG) H 10/05/20 07:20 Urine RBC 10-20 /HPF (NONE SEEN) H 10/05/20 07:20 Urine WBC >50 /HPF (<5) H 10/05/20 07:20 Ur Squamous Epith Cells <5 /HPF (NONE SEEN) 10/05/20 07:20 Urine Bacteria <20 /HPF (<20) 10/05/20 07:20 Urine Mucus 1+ /HPF (NONE SEEN) 09/25/20 12:30 Urine Culture Reflexed Not needed 10/05/20 07:20 Urine Total Protein Negative (NEG) 10/05/20 07:20 SARS-CoV-2 RNA (RT-PCR) Negative (NEGATIVE) 10/05/20 11:55 Weight: 155 lb 12.8 oz Wound Present: No Closed Surgical Incision Present: Yes Negative Pressure Wound Therapy Present: No Physician Update: Labs are stable. She is making fair overall progress with therapy. She has difficulty following hip precautions. She has decreased safety awareness due to poor cognition. Functional Improvement: pt has demonstrated progress throughout the week. She is able to ambulate and perform functional transfers with SBA. Verbal cues are needed for safety and proper technique. pt continues to require skilled PT services to improve functional independence and safety. Summary: Patient's care plan and oil heaterman goals have been reviewed and revised as necessary. Please see the Rehabilitation Signature page for all necessary signatures.
[2020-10-09] MEDS: BACLOFEN 10 MG TAB PO SCH (19:55)
[2020-10-09] MEDS: TRAZODONE 50 MG TABLET PO SCH (19:56)
[2020-10-10] MEDS: ENOXAPARIN 40 MG/0.4 ML SQ SCH (07:02)
[2020-10-10] MEDS: LEVOTHYROXINE SOD 0.075 MG TAB PO SCH (07:02)
[2020-10-10] MEDS: GUAIFENESIN 600 MG SA TAB PO SCH ×2 (08:00→21:00)
[2020-10-10] MEDS: JUVEN PACKET PO SCH ×2 (08:00→20:00)
[2020-10-10] MEDS: CRANBERRY FRUIT EXTRACT 200 MG CAP PO SCH ×2 (08:23→20:59)
[2020-10-10] MEDS: DOCUSATE NA/SENNA CONC 1 TAB PO SCH ×2 (08:24→20:59)
[2020-10-10] MEDS: levoFLOXacin 500 MG TAB PO SCH (08:24)
[2020-10-10] MEDS: GABAPENTIN 300 MG CAP PO SCH ×2 (08:24→21:00)
[2020-10-10] MEDS: AMLODIPINE 5 MG TAB PO SCH (08:25)
[2020-10-10] MEDS: TRAMADOL HCL 50 MG TAB PO PRN ×3 (08:25→23:10)
[2020-10-10] MEDS: LIDOCAINE 4% PATCH TOP SCH (08:26)
[2020-10-10] MEDS: FLUTICASONE 50MCG NASAL SPRAY NAS SCH ×2 (08:28→20:59)
[2020-10-10] MEDS: PANTOPRAZOLE 40MG TABLET PO SCH ×2 (08:28→16:16)
[2020-10-10] MEDS: BENAZEPRIL 10 MG TAB PO SCH ×2 (08:29→21:00)
[2020-10-10] MEDS: MAGNESIUM OXIDE 400 MG TAB PO SCH (10:12)
[2020-10-10] MEDS: TRAZODONE 50 MG TABLET PO SCH (21:00)
[2020-10-10] MEDS: BACLOFEN 10 MG TAB PO SCH (21:01)
[2020-10-11] MEDS: ACETAMINOPHEN 500 MG TAB PO PRN ×2 (00:37→19:51)
[2020-10-11] MEDS: ENOXAPARIN 40 MG/0.4 ML SQ SCH (06:44)
[2020-10-11] MEDS: LEVOTHYROXINE SOD 0.075 MG TAB PO SCH (06:44)
[2020-10-11] MEDS: PANTOPRAZOLE 40MG TABLET PO SCH ×2 (06:47→16:12)
[2020-10-11] MEDS: JUVEN PACKET PO SCH ×2 (08:00→19:52)
[2020-10-11] MEDS: GUAIFENESIN 600 MG SA TAB PO SCH (08:00)
[2020-10-11] MEDS: MAGNESIUM OXIDE 400 MG TAB PO SCH (08:34)
[2020-10-11] MEDS: levoFLOXacin 500 MG TAB PO SCH (08:34)
[2020-10-11] MEDS: CRANBERRY FRUIT EXTRACT 200 MG CAP PO SCH ×2 (08:34→19:50)
[2020-10-11] MEDS: DOCUSATE NA/SENNA CONC 1 TAB PO SCH ×2 (08:34→19:51)
[2020-10-11] MEDS: GABAPENTIN 300 MG CAP PO SCH ×2 (08:35→19:51)
[2020-10-11] MEDS: AMLODIPINE 5 MG TAB PO SCH (08:35)
[2020-10-11] MEDS: TRAMADOL HCL 50 MG TAB PO PRN ×3 (08:35→22:45)
[2020-10-11] MEDS: BENAZEPRIL 10 MG TAB PO SCH ×2 (08:36→19:51)
[2020-10-11] MEDS: LIDOCAINE 4% PATCH TOP SCH (08:36)
[2020-10-11] MEDS: FLUTICASONE 50MCG NASAL SPRAY NAS SCH ×2 (08:36→19:50)
[2020-10-11] MEDS ORDERED: GUAIFENESIN 600 MG SA TAB PO PRN (08:37)
--- NOTE | 2020-10-11 11:46 | FAST ---
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 Shukri Oconnor M.D. ADMISSION DIAGNOSIS: - Orthopaedic Disorders 08 - Unilateral Hip Fracture (08.11) LEFT HIP FRACTURE. EATING: EATING - STEP 1: Does the patient complete the activity by him/herself with no assistance (physical, verbal/nonverbal cueing, setup/clean-up)? No. EATING - STEP 2: Does the patient need only setup/clean-up assistance from one helper? Yes. 1. [id number] ADMISSION PERFORMANCE: Setup or clean-up assistance CODE: 05 ORAL HYGIENE: ORAL HYGIENE - STEP 1: Does the patient complete the activity by him/herself with no assistance (physical, verbal/nonverbal cueing, setup/clean-up)? No. ORAL HYGIENE - STEP 2: Does the patient need only setup/clean-up assistance from one helper? Yes. 1. [id number] ADMISSION PERFORMANCE: Setup or clean-up assistance CODE: 05 TOILETING HYGIENE: TOILETING HYGIENE - STEP 1: Does the patient complete the activity by him/herself with no assistance (physical, verbal/nonverbal cueing, setup/clean-up)? No. TOILETING HYGIENE - STEP 2: Does the patient need only setup/clean-up assistance from one helper? Yes. 1. [id number] ADMISSION PERFORMANCE: Setup or clean-up assistance CODE: 05 BATHING: Not assessed/no information CODE: - DRESSING - UPPER BODY: DRESSING - UPPER BODY - STEP 1: Does the patient complete the activity by him/herself with no assistance (physical, verbal/nonverbal cueing, setup/clean-up)? No. DRESSING - UPPER BODY - STEP 2: Does the patient need only setup/clean-up assistance from one helper? Yes. 1. [id number] ADMISSION PERFORMANCE: Setup or clean-up assistance CODE: 05 DRESSING - LOWER BODY: DRESSING - LOWER BODY - STEP 1: Does the patient complete the activity by him/herself with no assistance (physical, verbal/nonverbal cueing, setup/clean-up)? No. DRESSING - LOWER BODY - STEP 2: Does the patient need only setup/clean-up assistance from one helper? Yes. 1. [id number] ADMISSION PERFORMANCE: Setup or clean-up assistance CODE: 05 PUTTING ON/TAKING OFF FOOTWEAR: FOOTWEAR - STEP 1: Does the patient complete the activity by him/herself with no assistance (physical, verbal/nonverbal cueing, setup/clean-up)? No. FOOTWEAR - STEP 2: Does the patient need only setup/clean-up assistance from one helper? Yes. 1. [id number] ADMISSION PERFORMANCE: Setup or clean-up assistance CODE: 05 ROLL LEFT AND RIGHT: ROLL LEFT AND RIGHT - STEP 1: Does the patient complete the activity by him/herself with no assistance (physical, verbal/nonverbal cueing, setup/clean-up)? No. ROLL LEFT AND RIGHT - STEP 2: Does the patient need only setup/clean-up assistance from one helper? No. ROLL LEFT AND RIGHT - STEP 3: Does the patient need only verbal/nonverbal cueing or touching/steadying/contact guard assistance fro m one helper? Yes. 1. [id number] ADMISSION PERFORMANCE: Supervision or touching assistance CODE: 04 SIT TO LYING: SIT TO LYING - STEP 1: Does the patient complete the activity by him/herself with no assistance (physical, verbal/nonverbal cueing, setup/clean-up)? No. SIT TO LYING - STEP 2: Does the patient need only setup/clean-up assistance from one helper? Yes. 1. [id number] ADMISSION PERFORMANCE: Setup or clean-up assistance CODE: 05 LYING TO SITTING: LYING TO SITTING ON SIDE OF BED - STEP 1: Does the patient complete the activity by him/herself with no assistance (physical, verbal/nonverbal cueing, setup/clean-up)? No. LYING TO SITTING ON SIDE OF BED - STEP 2: Does the patient need only setup/clean-up assistance from one helper? Yes. 1. [id number] ADMISSION PERFORMANCE: Setup or clean-up assistance CODE: 05 SIT TO STAND: SIT TO STAND - STEP 1: Does the patient complete the activity by him/herself with no assistance (physical, verbal/nonverbal cueing, setup/clean-up)? No. SIT TO STAND - STEP 2: Does the patient need only setup/clean-up assistance from one helper? Yes. 1. [id number] ADMISSION PERFORMANCE: Setup or clean-up assistance CODE: 05 TRANSFERS: BED, CHAIR: [id number] TRANSFER - STEP 1: Does the patient complete the activity by him/herself with no assistance (physical, verbal/nonverbal cueing, setup/clean-up)? No. [id number]/[id number] TRANSFER - STEP 2: Does the patient need only setup/clean-up assistance from one helper? Yes. 1. [id number] ADMISSION PERFORMANCE: Setup or clean-up assistance CODE: 05 TRANSFER TOILET: TOILET TRANSFER - STEP 1: Does the patient complete the activity by him/herself with no assistance (physical, verbal/nonverbal cueing, setup/clean-up)? No. TOILET TRANSFER - STEP 2: Does the patient need only setup/clean-up assistance from one helper? Yes. 1. [id number] ADMISSION PERFORMANCE: Setup or clean-up assistance CODE: 05 TRANSFERS: CAR: Not assessed/no information CODE: - WALK 10 FEET: WALK 10 FEET - STEP 1: Does the patient complete the activity by him/herself with no assistance (physical, verbal/nonverbal cueing, setup/clean-up)? No. WALK 10 FEET - STEP 2: Does the patient need only setup/clean-up assistance from one helper? No. WALK 10 FEET - STEP 3: Does the patient need only verbal/nonverbal cueing or touching/steadying/contact guard assistance fro m one helper? Yes. 1. [id number] ADMISSION PERFORMANCE: Supervision or touching assistance CODE: WALK 50 FEET: WALK 50 FEET - STEP 1: Does the patient complete the activity by him/herself with no assistance (physical, verbal/nonverbal cueing, setup/clean-up)? No. WALK 50 FEET - STEP 2: Does the patient need only setup/clean-up assistance from one helper? No. WALK 50 FEET - STEP 3: Does the patient need only verbal/nonverbal cueing or touching/steadying/contact guard assistance fro m one helper? Yes. 1. [id number] ADMISSION PERFORMANCE: Supervision or touching assistance CODE: WALK 150 FEET: WALK 150 FEET - STEP 1: Does the patient complete the activity by him/herself with no assistance (physical, verbal/nonverbal cueing, setup/clean-up)? No. WALK 150 FEET - STEP 2: Does the patient need only setup/clean-up assistance from one helper? No. WALK 150 FEET - STEP 3: Does the patient need only verbal/nonverbal cueing or touching/steadying/contact guard assistance fro m one helper? Yes. 1. [id number] ADMISSION PERFORMANCE: Supervision or touching assistance CODE: 04 WALK 10 FEET UNEVEN: Not assessed/no information CODE: - 1 STEP (CURB): Not assessed/no information CODE: - PICKING UP OBJECT: Not assessed/no information CODE: - DOES THE PATIENT USE A WHEELCHAIR/SCOOTER? Q1. DOES THE PATIENT USE A WHEELCHAIR/SCOOTER?: Yes CODE: 1 WHEEL 50 FEET WITH TWO TURNS: WHEEL 50 FEET WITH TWO TURNS - STEP 1: Does the patient complete the activity by him/herself with no assistance (physical, verbal/nonverbal cueing, setup/clean-up)? No. WHEEL 50 FEET WITH TWO TURNS - STEP 2: Does the patient need only setup/clean-up assistance from one helper? No. WHEEL 50 FEET WITH TWO TURNS - STEP 3: Does the patient need only verbal/nonverbal cueing or touching/steadying/contact guard assistance fro m one helper? Yes. 1. [id number] ADMISSION PERFORMANCE: Supervision or touching assistance CODE: 04 INDICATE THE TYPE OF WHEELCHAIR/SCOOTER USED: RR1. INDICATE THE TYPE OF WHEELCHAIR/SCOOTER USED.: Manual CODE: 1 WHEEL 150 FEET: WHEEL 150 FEET - STEP 1: Does the patient complete the activity by him/herself with no assistance (physical, verbal/nonverbal cueing, setup/clean-up)? No. WHEEL 150 FEET - STEP 2: Does the patient need only setup/clean-up assistance from one helper? No. WHEEL 150 FEET - STEP 3: Does the patient need only verbal/nonverbal cueing or touching/steadying/contact guard assistance fro m one helper? Yes. 1. [id number] ADMISSION PERFORMANCE: Supervision or touching assistance CODE: 04 INDICATE THE TYPE OF WHEELCHAIR/SCOOTER USED: SS1. INDICATE THE TYPE OF WHEELCHAIR/SCOOTER USED.: Manual CODE: 1 BLADDER AND BOWEL: H350. BLADDER CONTINENCE (3-DAY ASSESSMENT PERIOD): Always continent (no documented incontinence) CODE: 0 H400. BOWEL CONTINENCE (3-DAY ASSESSMENT PERIOD): Always continent CODE: 0 SIGNATURE PANEL: The following modified sections: 1. [id number] Admission Performance, 1. [id number] Admission Performance, 1. [id number] Admission Performance, 1. [id number] Admission Performance, 1. [id number] Admission Performance, 1. [id number] Admission Performance, 1. [id number] Admission Performance, 1. [id number] Admission Performance , 1. [id number] Admission Performance, 1. [id number] Admission Performance, 1. [id number] Admission Performanc e, 1. [id number] Admission Performance, 1. [id number] Admission Performance, 1. [id number] Admission Performan ce, 1. [id number] Admission Performance, Q1. Does the patient use a wheelchair/scooter?, 1. [id number] Admi ssion Performance, RR1. Indicate the type of wheelchair/scooter used., 1. [id number] Admission Performan ce, Code, SS1. Indicate the type of wheelchair/scooter used., H350. Bladder Continence (3-day assessm ent period), H400. Bowel Continence (3-day assessment period) were [electronically] signed by Courtney Sheets C.N.A. on TueOct 11 2020 11:45:26 GMT-0500 (Central Daylight Time)
[2020-10-11] MEDS: BACLOFEN 10 MG TAB PO SCH (19:51)
[2020-10-11] MEDS: TRAZODONE 50 MG TABLET PO SCH (19:52)
[2020-10-12] MEDS: ENOXAPARIN 40 MG/0.4 ML SQ SCH (06:46)
[2020-10-12] MEDS: LEVOTHYROXINE SOD 0.075 MG TAB PO SCH (06:46)
[2020-10-12] MEDS: PANTOPRAZOLE 40MG TABLET PO SCH ×2 (06:46→16:57)
[2020-10-12] MEDS: JUVEN PACKET PO SCH ×2 (08:00→19:56)
[2020-10-12] MEDS: LIDOCAINE 4% PATCH TOP SCH (08:24)
[2020-10-12] MEDS: CRANBERRY FRUIT EXTRACT 200 MG CAP PO SCH ×2 (08:25→19:54)
[2020-10-12] MEDS: DOCUSATE NA/SENNA CONC 1 TAB PO SCH ×2 (08:27→19:55)
[2020-10-12] MEDS: GABAPENTIN 300 MG CAP PO SCH ×2 (08:28→19:54)
[2020-10-12] MEDS: levoFLOXacin 500 MG TAB PO SCH (08:28)
[2020-10-12] MEDS: AMLODIPINE 5 MG TAB PO SCH (08:32)
[2020-10-12] MEDS: FLUTICASONE 50MCG NASAL SPRAY NAS SCH ×2 (08:35→19:55)
[2020-10-12] MEDS: ACETAMINOPHEN 500 MG TAB PO PRN ×2 (08:35→19:54)
[2020-10-12] MEDS: BENAZEPRIL 10 MG TAB PO SCH ×2 (08:36→19:54)
[2020-10-12] MEDS: MAGNESIUM OXIDE 400 MG TAB PO SCH (09:31)
[2020-10-12] MEDS: BACLOFEN 10 MG TAB PO SCH (19:55)
[2020-10-12] MEDS: TRAZODONE 50 MG TABLET PO SCH (19:55)
[2020-10-12] MEDS: ONDANSETRON 4 MG (ODT) TAB PO PRN (20:39)
[2020-10-12] MEDS: TRAMADOL HCL 50 MG TAB PO PRN (20:39)
[2020-10-13] MEDS: LEVOTHYROXINE SOD 0.075 MG TAB PO SCH (06:33)
[2020-10-13] MEDS: FLUTICASONE 50MCG NASAL SPRAY NAS SCH ×2 (06:45→19:12)
[2020-10-13] MEDS: ENOXAPARIN 40 MG/0.4 ML SQ SCH (06:45)
[2020-10-13] MEDS: PANTOPRAZOLE 40MG TABLET PO SCH ×2 (07:06→16:55)
[2020-10-13] MEDS: JUVEN PACKET PO SCH ×2 (08:00→19:12)
[2020-10-13] MEDS: TRAMADOL HCL 50 MG TAB PO PRN ×3 (08:17→19:45)
[2020-10-13] MEDS: GABAPENTIN 300 MG CAP PO SCH ×2 (08:18→19:13)
[2020-10-13] MEDS: levoFLOXacin 500 MG TAB PO SCH (08:18)
[2020-10-13] MEDS: AMLODIPINE 5 MG TAB PO SCH (08:19)
[2020-10-13] MEDS: MAGNESIUM OXIDE 400 MG TAB PO SCH (08:20)
[2020-10-13] MEDS: DOCUSATE NA/SENNA CONC 1 TAB PO SCH ×2 (08:20→19:13)
[2020-10-13] MEDS: BENAZEPRIL 10 MG TAB PO SCH ×2 (08:20→19:53)
[2020-10-13] MEDS: CRANBERRY FRUIT EXTRACT 200 MG CAP PO SCH ×2 (08:20→19:12)
[2020-10-13] MEDS: LIDOCAINE 4% PATCH TOP SCH (09:17)
[2020-10-13] MEDS: ACETAMINOPHEN 500 MG TAB PO PRN (10:45)
[2020-10-13] MEDS: ONDANSETRON 4 MG (ODT) TAB PO PRN (10:57)
--- NOTE | 2020-10-13 18:32 | R.PN ---
PROGRESS NOTES ENCOUNTER DATE AND TIME: 10/13/2020 18:26 (CDT) NAME JOSUE DU DATE OF : 1930 DATE OF ADMISSION: 09/25/2020 10:31 ([facility]) LEFT HIP FRACTURECHIEF COMPLAINT: Left hip fracture, hypertension, debility SUBJECTIVE: Pt denied any depression. Pt denied any Shortness of Breath. WBC 9.7, Hgb 10.3, prealbumin 15.7, calcium 8.8, UA 1+ esterase, 20-50 bacteria, 10-20 WBC, cultures are negative. Ambulated with walker 750' with standby assistance. Up and down 10 steps with SBA. Will start Eliquis 2.5 mg bid for DVT prophylaxis and d/c lovenox. Will stop Levaguin. Had 7 days for UTI. VITAL SIGNS Temperature: 98.1 F SBP/DBP: 148/68 Pulse: 62 Resp: 14 MEDICATION ALLERGIES: CODEINE PENICILLIN SULFA ENVIRONMENTAL ALLERGIES: - Substance Allergies None Known - Other Allergies None Known NURSING: - Shower allowing shower - Skin care per protocol PRECAUTIONS: - Anterior Hip Precaution No abduction No active extension No adduction across midline No external rotation No hip flexion >90 degrees No internal rotation - Posterior Hip Precaution No adduction across midline No external rotation No hip flexion >90 degrees No internal rotation No wheel chair propulsion - Weight Bearing Precaution WBAT left LE ACTIVITIES OOB only with supervision THERAPIES: - Dietary and Nutrition Adequate Nutrition. Nutritional Education. Nutritional Supplements. PHYSICAL EXAM - Gen Alert and awake Lying in bed No apparent distress Oriented to: person, time, and place - Skin Left hip incision is intact. No tingling - Eyes No abnormalities - ENMT No abnormalities - Neck No stiffness - CVS RRR - Chest Clear - Resp No wheezing - Abd + bowel sounds - GI Soft Deferred - Continent - Ext Left hip surgical site has good hemostasis. - MSK 4+/5 weakness in left lower extremity - Neuro 4/5 strength left lower extremities. - Psych No abnormalities ASSESSMENT: Pt. is a 89 yo Right-handed female of unknown race.On 09/21/2020 she was admitted to [facility] with diagnosis LEFT HIP FRACTURE.Her impairment category is Orthopaedic Disorders 08 - Unila teral Hip Fracture (08.11).Pre-morbidly, Pt. was independent/mod-I in Locomotion, Safety Awareness, B alance, and Endurance; and she had good Sphincter Control and Transfers Control.Currently, she has de ficits of Balance, Safety Awareness, Locomotion, Sphincter Control, Self-Care, Communication, Enduran ce, and Transfers Control.Pt. is now referred to [facility] for acute in-patie nt rehabilitation in order to maximize patient's functional independence in activities of daily livin g, strength, ROM, and mobility.- Rehab Goal Patient has realistic goal of being discharged at assistance level 7-Ind to reside at Home with Pt s elf. MDM/PLAN: - Physical Therapy Decreased range of motion - to improve, our physical therapists will perform initial evaluation of p t's status upon admission and devise an individualized program for increasing patient's Range of Obed on. Inability to transfer - to improve, our physical therapists will perform initial evaluation of pt's status upon admission and devise an individualized program for Bed mobility Need for home safety evaluation - to improve, our physical therapists will perform initial evaluatio n of pt's status upon admission and devise an individualized program for Home Evaluation Need in caregiver upon discharge - to improve, our physical therapists will perform initial evaluati on of pt's status upon admission and devise an individualized program for Caregiver Training New precaution - to improve, our physical therapists will perform initial evaluation of pt's status upon admission and devise an individualized program for Patient precaution education Poor balance - to improve, our physical therapists will perform initial evaluation of pt's status up on admission and devise an individualized program for Balance Training Poor endurance - to improve, our physical therapists will perform initial evaluation of pt's status upon admission and devise an individualized program for Endurance Training Achieving independence - to improve, our physical therapists will perform initial evaluation of pt's status upon admission and devise an individualized program for Community Reintegration Activities - Occupational Therapy ADL deficits - to improve, our occupation therapists will perform initial evaluation of pt's status upon admission and devise an individualized program for Bathing, Bed mobility, Community Reintegratio n, Cooking, Dressing, Eating, Fine Motor Skills, Grooming, Homemaking, Kitchen Mobility, Laundry, Pat ient Education, Safety Awareness, Splinting - Positioning, Transfers(Toilet, Tub, Shower), and Wheel Chair Management Need for critical care physician - to improve, our occupation therapists will perform initial evaluation of pt's status upon admission and devise an individualized program for Caregiver Training - Other See attached MAR (Medication Administration Record) - Anterior Hip Precaution No abduction No active extension No adduction across midline No external rotation No hip flexion >90 degrees No internal rotation - Diet - Liquid Texture Continue Regular - Tube Feed Continue N/A - Diet Type Continue Regular - Posterior Hip Precaution No adduction across midline No external rotation No hip flexion >90 degrees No internal rotation No wheel chair propulsion - Weight Bearing Precaution WBAT left LE - Skin care per protocol - Diet - Solid Texture Continue Regular - Shower allowing shower FUNCTIONAL STATUS: UPDATED AT WEEKLY TEAM CONFERENCE - Bladder Same accident frequency: 7-Ind - No accidents in the past 7 days - Bowel Same accident frequency: 7-Ind - No accidents in the past 7 days - Walking Same score based on distance walked: 0(N/A) Same score based on distance walked: 1(<=50ft) - Wheelchair Same score based on distance traveled: 0(N/A) FUNCTIONAL STATUS: - Self-Care A. Eating Audie B. Grooming Audie C. Bathing Reta D. Dressing - Upper Reta E. Dressing - Lower modA F. Toileting Reta - Sphincter Control G. Bladder control Reta H. Bowel control sup - Transfers Control I. Bed/Chair/Wheelchair Reta J. Toilet Reta K. Tub/Shower modA - Locomotion L. Walk/Wheelchair (B) modA M. Stairs ADNO - Communication N. Comprehension (B) Audie O. Expression (B) Audie - Social Cognition P. Social Interaction Audie Q. Problem Solving Reta R. Memory Reta - Endurance Fair - Balance Fair - Safety Awareness Fair QI SCORES: - Self-Care A. Eating 03-Partial/moderate assistance B. Oral hygiene 02-Substantial/maximal assistance C. Toileting hygiene 02-Substantial/maximal assistance E. Shower/bathe self 02-Substantial/maximal assistance F. Upper body dressing 02-Substantial/maximal assistance G. Lower body dressing 02-Substantial/maximal assistance H. Putting on/taking off footwear 88-Not attempted due to medical condition or safety concerns - Mobility A. Roll left and right 03-Partial/moderate assistance B. Sit to lying 02-Substantial/maximal assistance C. Lying to sitting on side of bed 02-Substantial/maximal assistance D. Sit to stand 02-Substantial/maximal assistance E. Chair/snr-ns-emwpi transfer 02-Substantial/maximal assistance F. Toilet transfer 02-Substantial/maximal assistance G. Car transfer 88-Not attempted due to medical condition or safety concerns I. Walk 10 feet 88-Not attempted due to medical condition or safety concerns J. Walk 50 feet with two turns 88-Not attempted due to medical condition or safety concerns K. Walk 150 feet 88-Not attempted due to medical condition or safety concerns L. Walking 10 feet on uneven surfaces 88-Not attempted due to medical condition or safety concerns M. 1 step (curb) 88-Not attempted due to medical condition or safety concerns N. 4 steps 88-Not attempted due to medical condition or safety concerns O. 12 steps 88-Not attempted due to medical condition or safety concerns P. Picking up object 88-Not attempted due to medical condition or safety concerns R. Wheel 50 feet with two turns 88-Not attempted due to medical condition or safety concerns S. Wheel 150 feet 88-Not attempted due to medical condition or safety concerns - Bladder and Bowel Bladder continence Bowel continence - Endurance Good - Balance Good - Safety Awareness Good CURRENT FUNC. DEFICITS: Self-Care and Mobility SIGNATURE PANEL: (CDT)
[2020-10-13] MEDS: BACLOFEN 10 MG TAB PO SCH (19:13)
[2020-10-13] MEDS: TRAZODONE 50 MG TABLET PO SCH (19:47)
[2020-10-14] MEDS: LIDOCAINE 4% PATCH TOP SCH (06:29)
[2020-10-14] MEDS: FLUTICASONE 50MCG NASAL SPRAY NAS SCH (06:36)
[2020-10-14] MEDS: ENOXAPARIN 40 MG/0.4 ML SQ SCH (06:38)
[2020-10-14] MEDS: PANTOPRAZOLE 40MG TABLET PO SCH (06:38)
[2020-10-14] MEDS: LEVOTHYROXINE SOD 0.075 MG TAB PO SCH (06:38)
[2020-10-14 07:11] VITALS: BP 149/69; TEMP 97
[2020-10-14] MEDS: TRAMADOL HCL 50 MG TAB PO PRN ×2 (07:50→11:55)
[2020-10-14] MEDS: CRANBERRY FRUIT EXTRACT 200 MG CAP PO SCH (07:50)
[2020-10-14] MEDS: MAGNESIUM OXIDE 400 MG TAB PO SCH (07:51)
[2020-10-14] MEDS: AMLODIPINE 5 MG TAB PO SCH (07:52)
[2020-10-14] MEDS: BENAZEPRIL 10 MG TAB PO SCH (07:52)
[2020-10-14] MEDS: JUVEN PACKET PO SCH (07:53)
[2020-10-14] MEDS: DOCUSATE NA/SENNA CONC 1 TAB PO SCH (07:53)
[2020-10-14] MEDS: levoFLOXacin 500 MG TAB PO SCH (07:53)
[2020-10-14] MEDS: GABAPENTIN 300 MG CAP PO SCH (07:53)
[2020-10-14] MEDS: ONDANSETRON 4 MG (ODT) TAB PO PRN (10:02)
--- NOTE | 2020-10-14 19:06 | R.PN ---
PROGRESS NOTES ENCOUNTER DATE AND TIME: 10/14/2020 19:00 (CDT) NAME JOSUE DU DATE OF : 1930 DATE OF ADMISSION: 09/25/2020 10:31 ([employer]) LEFT HIP FRACTURECHIEF COMPLAINT: Left hip fracture, hypertension, debility SUBJECTIVE: Pt denied any depression. Pt denied any Shortness of Breath. WBC 9.7, Hgb 10.3, prealbumin 15.7, calcium 8.8, UA 1+ esterase, 20-50 bacteria, 10-20 WBC, cultures are negative. Ambulated with walker 168' independently. Up and down 15 steps with SBA. Will start Eliquis 2.5 mg bid for DVT prophylaxis and d/c lovenox. Will stop Levaguin. Had 7 days for UTI. Patient will be discharged home today with continued physical therapy via home health. VITAL SIGNS Temperature: 97.0 F SBP/DBP: 149/69 Pulse: 61 Resp: 14 MEDICATION ALLERGIES: CODEINE PENICILLIN SULFA ENVIRONMENTAL ALLERGIES: - Substance Allergies None Known - Other Allergies None Known NURSING: - Shower allowing shower - Skin care per protocol PRECAUTIONS: - Anterior Hip Precaution No abduction No active extension No adduction across midline No external rotation No hip flexion >90 degrees No internal rotation - Posterior Hip Precaution No adduction across midline No external rotation No hip flexion >90 degrees No internal rotation No wheel chair propulsion - Weight Bearing Precaution WBAT left LE ACTIVITIES OOB only with supervision THERAPIES: - Dietary and Nutrition Adequate Nutrition. Nutritional Education. Nutritional Supplements. PHYSICAL EXAM - Gen Alert and awake Lying in bed No apparent distress Oriented to: person, time, and place - Skin Left hip incision is intact. No tingling - Eyes No abnormalities - ENMT No abnormalities - Neck No stiffness - CVS RRR - Chest Clear - Resp No wheezing - Abd + bowel sounds - GI Soft Deferred - Continent - Ext Left hip surgical site has good hemostasis. - MSK 4+/5 weakness in left lower extremity - Neuro 4/5 strength left lower extremities. - Psych No abnormalities ASSESSMENT: Pt. is a 89 yo Right-handed female of unknown race.On 09/21/2020 she was admitted to [facility] with diagnosis LEFT HIP FRACTURE.Her impairment category is Orthopaedic Disorders 08 - Unila teral Hip Fracture (08.11).Pre-morbidly, Pt. was independent/mod-I in Locomotion, Safety Awareness, B alance, and Endurance; and she had good Sphincter Control and Transfers Control.Currently, she has de ficits of Balance, Safety Awareness, Locomotion, Sphincter Control, Self-Care, Communication, Enduran ce, and Transfers Control.Pt. is now referred to [facility] for acute in-patie nt rehabilitation in order to maximize patient's functional independence in activities of daily livin g, strength, ROM, and mobility.- Rehab Goal Patient has realistic goal of being discharged at assistance level 7-Ind to reside at Home with Pt s elf. MDM/PLAN: - Physical Therapy Decreased range of motion - to improve, our physical therapists will perform initial evaluation of p t's status upon admission and devise an individualized program for increasing patient's Range of Obed on. Inability to transfer - to improve, our physical therapists will perform initial evaluation of pt's status upon admission and devise an individualized program for Bed mobility Need for home safety evaluation - to improve, our physical therapists will perform initial evaluatio n of pt's status upon admission and devise an individualized program for Home Evaluation Need in caregiver upon discharge - to improve, our physical therapists will perform initial evaluati on of pt's status upon admission and devise an individualized program for Caregiver Training New precaution - to improve, our physical therapists will perform initial evaluation of pt's status upon admission and devise an individualized program for Patient precaution education Poor balance - to improve, our physical therapists will perform initial evaluation of pt's status up on admission and devise an individualized program for Balance Training Poor endurance - to improve, our physical therapists will perform initial evaluation of pt's status upon admission and devise an individualized program for Endurance Training Achieving independence - to improve, our physical therapists will perform initial evaluation of pt's status upon admission and devise an individualized program for Community Reintegration Activities - Occupational Therapy ADL deficits - to improve, our occupation therapists will perform initial evaluation of pt's status upon admission and devise an individualized program for Bathing, Bed mobility, Community Reintegratio n, Cooking, Dressing, Eating, Fine Motor Skills, Grooming, Homemaking, Kitchen Mobility, Laundry, Pat ient Education, Safety Awareness, Splinting - Positioning, Transfers(Toilet, Tub, Shower), and Wheel Chair Management Need for reservoir caretaker - to improve, our occupation therapists will perform initial evaluation of pt's status upon admission and devise an individualized program for Caregiver Training - Other See attached MAR (Medication Administration Record) - Anterior Hip Precaution No abduction No active extension No adduction across midline No external rotation No hip flexion >90 degrees No internal rotation - Diet - Liquid Texture Continue Regular - Tube Feed Continue N/A - Diet Type Continue Regular - Posterior Hip Precaution No adduction across midline No external rotation No hip flexion >90 degrees No internal rotation No wheel chair propulsion - Weight Bearing Precaution WBAT left LE - Skin care per protocol - Diet - Solid Texture Continue Regular - Shower allowing shower FUNCTIONAL STATUS: UPDATED AT WEEKLY TEAM CONFERENCE - Bladder Same accident frequency: 7-Ind - No accidents in the past 7 days - Bowel Same accident frequency: 7-Ind - No accidents in the past 7 days - Walking Same score based on distance walked: 0(N/A) Same score based on distance walked: 1(<=50ft) - Wheelchair Same score based on distance traveled: 0(N/A) FUNCTIONAL STATUS: - Self-Care A. Eating Audie B. Grooming Audie C. Bathing Reta D. Dressing - Upper Reta E. Dressing - Lower modA F. Toileting Reta - Sphincter Control G. Bladder control Reta H. Bowel control sup - Transfers Control I. Bed/Chair/Wheelchair Reta J. Toilet Reta K. Tub/Shower modA - Locomotion L. Walk/Wheelchair (B) modA M. Stairs ADNO - Communication N. Comprehension (B) Audie O. Expression (B) Audie - Social Cognition P. Social Interaction Audie Q. Problem Solving Reta R. Memory Reta - Endurance Fair - Balance Fair - Safety Awareness Fair QI SCORES: - Self-Care A. Eating 03-Partial/moderate assistance B. Oral hygiene 02-Substantial/maximal assistance C. Toileting hygiene 02-Substantial/maximal assistance E. Shower/bathe self 02-Substantial/maximal assistance F. Upper body dressing 02-Substantial/maximal assistance G. Lower body dressing 02-Substantial/maximal assistance H. Putting on/taking off footwear 88-Not attempted due to medical condition or safety concerns - Mobility A. Roll left and right 03-Partial/moderate assistance B. Sit to lying 02-Substantial/maximal assistance C. Lying to sitting on side of bed 02-Substantial/maximal assistance D. Sit to stand 02-Substantial/maximal assistance E. Chair/zyi-qs-hlued transfer 02-Substantial/maximal assistance F. Toilet transfer 02-Substantial/maximal assistance G. Car transfer 88-Not attempted due to medical condition or safety concerns I. Walk 10 feet 88-Not attempted due to medical condition or safety concerns J. Walk 50 feet with two turns 88-Not attempted due to medical condition or safety concerns K. Walk 150 feet 88-Not attempted due to medical condition or safety concerns L. Walking 10 feet on uneven surfaces 88-Not attempted due to medical condition or safety concerns M. 1 step (curb) 88-Not attempted due to medical condition or safety concerns N. 4 steps 88-Not attempted due to medical condition or safety concerns O. 12 steps 88-Not attempted due to medical condition or safety concerns P. Picking up object 88-Not attempted due to medical condition or safety concerns R. Wheel 50 feet with two turns 88-Not attempted due to medical condition or safety concerns S. Wheel 150 feet 88-Not attempted due to medical condition or safety concerns - Bladder and Bowel Bladder continence Bowel continence - Endurance Good - Balance Good - Safety Awareness Good CURRENT FUNC. DEFICITS: Self-Care and Mobility SIGNATURE PANEL: (CDT)
--- NOTE | 2020-10-20 22:13 | PN ---
Date of Progress Note: 10/08/2020 Subjective: The patient was seen for followup in the morning. She was on the rehab floor. Vital si gns reviewed. Denies any new complaints. No chest pain, shortness of breath, nausea, vomiting. No constipation. Objective: HEENT: Examination unremarkable. Lungs: Clear to auscultation. Heart: Sounds normal. Abdomen: Soft. Bowel sounds normal. No guarding, rigidity, tenderness, distention. Extremities: No leg edema. Impression: 1.Left hip fracture. 2.Hypertension. 3.Constipation. 4.Insomnia. 5.Anemia. 6.Urinary tract infection. Plan: We will go ahead and continue current antibiotic. The patient has Enterococcus growing in uri ne. We will continue current antibiotic. Continue current antihypertensive medication. Physical th erapy to be provided under guidance of Dr. Oconnor. I will be on vacation after today and as of sneha jignesh, Dr. Oconnor will look after this patient's care and I have discussed details with him. HUBERT/MODL Voice ID: [id number] Report ID: [id number]
--- NOTE | 2020-10-24 18:17 | R.DS ---
DISCHARGE SUMMARY FACILITY [facility] MR# [id number] NAME ELVI ROBERTS ADDRESS [address] ZIP [address] PHONE DATE OF 1930 AGE 89 SSN# [id number] GENDER Female DEXTERITY Right-handed MARITAL STATUS RACE Unknown race ENCOUNTER PHYSICIAN Dr. Shukri Oconnor M.D. REFERRING DOCTOR REFERRING FACILITY [facility] PRIMARY CARE PHYSICIAN SARAHY DISCHARGE DIAGNOSIS: - Orthopaedic Disorders 08 - Unilateral Hip Fracture (08.11) LEFT HIP FRACTURE. 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 NURSING: - Shower allowing shower - Skin care per protocol PRECAUTIONS: - Anterior Hip Precaution No abduction No active extension No adduction across midline No external rotation No hip flexion >90 degrees No internal rotation - Posterior Hip Precaution No adduction across midline No external rotation No hip flexion >90 degrees No internal rotation No wheel chair propulsion - Weight Bearing Precaution WBAT left LE ACTIVITIES OOB only with supervision THERAPIES: - Dietary and Nutrition Adequate Nutrition Nutritional Education Nutritional Supplements HISTORY OF PRESENT ILLNESS: Pt. is a 89 yo Right-handed female of unknown race.On 09/21/2020 she was admitted to [facility] with diagnosis LEFT HIP FRACTURE.Her impairment category is Orthopaedic Disorders 08 - Unila teral Hip Fracture (.11).Pre-morbidly, Pt. was independent/mod-I in Locomotion, Safety Awareness, B alance, and Endurance; and she had good Sphincter Control and Transfers Control.Currently, she has de ficits of Balance, Safety Awareness, Locomotion, Sphincter Control, Self-Care, Communication, Enduran ce, and Transfers Control.Pt. is now referred to [facility] for acute in-patie nt rehabilitation in order to maximize patient's functional independence in activities of daily livin g, strength, ROM, and mobility.- Rehab Goal Patient has realistic goal of being discharged at assistance level 7-Ind to reside at Home with Pt s elf. Elvi Roberts is a 89 year -old female that lives indepently at home in a single story house. She fell down at home after she lost her balance while she was walking. After falling she managed to jasmin to get to the phone to call her son who brought her to the emergency room. She was evaluated, and admitted to the hospital with dx of hip fracture. She has always done all of her own daily livings by her self. The patient would most definitely benefit from acute inpatient patient to come to acute inpatient rehab for approximately 7-10 days in order to return to her prior level of care. She is now being transferred to [facility] Inpatient rehabilitation and is medically stable with relatively stable labs. She is now medically stable but in need of 24 hour nursing, doctor supervision and oversight while receiving active and participate in 3 hours of therapy a day/15 hours per week and receive care with intensive interdisciplinary approach. COVID-19 screening performed; spoke with patient via phone. Patient denies new onset of fever, cough, difficulty breathing, sore throat, body aches and non-allergy nasal congestion in the past 24 hours. Patient denies travel outside of [place] in the past 14 days. Patient denies any contact with someone who has a confirmed diagnosis of or is under investigation for COVID-19 in the past 14 days. Patient has been tested negative for COVID- 19.HOSPITAL COURSE: ANTERIOR HIP PRECAUTION: On 09/24/2020 the following precautions were added for the patient: Anterior Hip Precaution - No inte rnal rotation, Anterior Hip Precaution - No adduction across midline, Anterior Hip Precaution - No ac tive extension, Anterior Hip Precaution - No abduction, Anterior Hip Precaution - No hip flexion >90 degrees, and Anterior Hip Precaution - No external rotation. On 09/29/2020 the following precautions were added for the patient: Anterior Hip Precaution - No abd uction, Anterior Hip Precaution - No active extension, Anterior Hip Precaution - No adduction acros s midline, Anterior Hip Precaution - No external rotation, Anterior Hip Precaution - No hip flexion >90 degrees, and Anterior Hip Precaution - No internal rotation. The following precautions were removed for the patient: Anterior Hip Precaution - No abduction, Anter ior Hip Precaution - No active extension, Anterior Hip Precaution - No adduction across midline, Ante rior Hip Precaution - No external rotation, Anterior Hip Precaution - No hip flexion >90 degrees, Ant erior Hip Precaution - No internal rotation, Anterior Hip Precaution - No abduction, Anterior Hip Pr ecaution - No active extension, Anterior Hip Precaution - No adduction across midline, Anterior Hip Precaution - No external rotation, Anterior Hip Precaution - No hip flexion >90 degrees, and Anter ior Hip Precaution - No internal rotation. On 09/24/2020 the following precautions were added for the patient: Posterior Hip Precaution - No int ernal rotation, Posterior Hip Precaution - No adduction across midline, Posterior Hip Precaution - No hip flexion >90 degrees, Posterior Hip Precaution - No wheel chair propulsion, and Posterior Hip Pre caution - No external rotation. On 09/29/2020 the following precautions were added for the patient: Posterior Hip Precaution - No ad duction across midline, Posterior Hip Precaution - No external rotation, Posterior Hip Precaution - No hip flexion >90 degrees, Posterior Hip Precaution - No internal rotation, and Posterior Hip Prec aution - No wheel chair propulsion. The following precautions were removed for the patient: Posterior Hip Precaution - No adduction acros s midline, Posterior Hip Precaution - No external rotation, Posterior Hip Precaution - No hip flexion >90 degrees, Posterior Hip Precaution - No internal rotation, Posterior Hip Precaution - No wheel ch air propulsion, Posterior Hip Precaution - No adduction across midline, Posterior Hip Precaution - No external rotation, Posterior Hip Precaution - No hip flexion >90 degrees, Posterior Hip Precautio n - No internal rotation, and Posterior Hip Precaution - No wheel chair propulsion. On 09/24/2020 the following precautions were added for the patient: Weight Bearing Precaution - WBAT left LE. On 09/25/2020 the following precautions were added for the patient: Weight Bearing Precaution - WBAT left LE. On 09/29/2020 the following precautions were removed for the patient: Weight Bearing Precaution - WB AT left LE. On 10/01/2020 the following precautions were added for the patient: Weight Bearing Precaution - WBAT left LE. DIET - LIQUID TEXTURE: On 09/24/2020 Pt was upgraded to Regular Diet - Liquid Texture. DIET - SOLID TEXTURE: On 09/24/2020 Pt was upgraded to Regular Diet - Solid Texture. DIET TYPE: On 09/24/2020 Pt was upgraded to Regular Diet Type. POSTERIOR HIP PRECAUTION: TUBE FEED: On 09/24/2020 Pt was changed to N/A Tube Feed. WEIGHT BEARING PRECAUTION: DISCHARGE PHYSICAL EXAM - Gen Alert and awake Lying in bed No apparent distress Oriented to: person, time, and place - Skin Left hip incision is intact. No tingling - Eyes No abnormalities - ENMT No abnormalities - Neck No stiffness - CVS RRR - Chest Clear - Resp No wheezing - Abd + bowel sounds - GI Soft Deferred - Continent - Ext Left hip surgical site has good hemostasis. - MSK 4+/5 weakness in left lower extremity - Neuro 4/5 strength left lower extremities. - Psych No abnormalities FUNCTIONAL STATUS: - Self-Care A. Eating 6-Audie B. Grooming 6-Audie C. Bathing 6-Audie D. Dressing - Upper 6-Audie E. Dressing - Lower 5-sup F. Toileting 5-sup - Sphincter Control G. Bladder control 5-sup H. Bowel control 5-sup - Transfers Control I. Bed/Chair/Wheelchair 5-sup J. Toilet 5-sup K. Tub/Shower 5-sup - Locomotion L. Walk/Wheelchair (B) 5-sup M. Stairs 5-sup - Communication N. Comprehension (B) 6-Audie O. Expression (B) 6-Audie - Social Cognition P. Social Interaction 6-Audie Q. Problem Solving 5-sup R. Memory 5-sup - Endurance Fair - Balance Fair - Safety Awareness Fair QI SCORES: - Self-Care A. Eating 03-Partial/moderate assistance B. Oral hygiene 02-Substantial/maximal assistance C. Toileting hygiene 02-Substantial/maximal assistance E. Shower/bathe self 02-Substantial/maximal assistance F. Upper body dressing 02-Substantial/maximal assistance G. Lower body dressing 02-Substantial/maximal assistance H. Putting on/taking off footwear 88-Not attempted due to medical condition or safety concerns - Mobility A. Roll left and right 03-Partial/moderate assistance B. Sit to lying 02-Substantial/maximal assistance C. Lying to sitting on side of bed 02-Substantial/maximal assistance D. Sit to stand 02-Substantial/maximal assistance E. Chair/nxm-[id number]-[id number] transfer 02-Substantial/maximal assistance F. Toilet transfer 02-Substantial/maximal assistance G. Car transfer 88-Not attempted due to medical condition or safety concerns I. Walk 10 feet 88-Not attempted due to medical condition or safety concerns J. Walk 50 feet with two turns 88-Not attempted due to medical condition or safety concerns K. Walk 150 feet 88-Not attempted due to medical condition or safety concerns L. Walking 10 feet on uneven surfaces 88-Not attempted due to medical condition or safety concerns M. 1 step (curb) 88-Not attempted due to medical condition or safety concerns N. 4 steps 88-Not attempted due to medical condition or safety concerns O. 12 steps 88-Not attempted due to medical condition or safety concerns P. Picking up object 88-Not attempted due to medical condition or safety concerns R. Wheel 50 feet with two turns 88-Not attempted due to medical condition or safety concerns S. Wheel 150 feet 88-Not attempted due to medical condition or safety concerns - Bladder and Bowel Bladder continence Bowel continence - Endurance Good - Balance Good - Safety Awareness Good DISCHARGE INSTRUCTIONS: - N/A Lovenox 40 mg sq daily. DISCHARGE PLAN, FOLLOW UP CARE PROVISIONS: - Estimated Length of Stay (days) 14. - Consensus on plan Discharge plan has been discussed with primary caregiver. Patient/Family is in agreement with the chase n. Primary caregiver is in agreement with the plan. - Patient/Family Goals Return home independently. - Planned Living Setting Upon Discharge Home, to live alone. Transitional Living. Primary caregiver: Pt self. SIGNATURE PANEL: (CDT)
== END 2020-10-14 14:20 | disposition home health service (06) | DRG 560 ==
LOC: 5TH 10:31
PROVIDERS: ADMIT Psychiatry & Neurology Neurology with Special Qualifications in Child Neurology; ATTEND Psychiatry & Neurology Neurology with Special Qualifications in Child Neurology
DX: S72.002D Fracture of unspecified part of neck of left femur, subsequent encounter for closed fracture with routine healing (principal); N39.0 Urinary tract infection, site not specified; I10 Essential (primary) hypertension; M19.90 Unspecified osteoarthritis, unspecified site; K59.09 Other constipation; K21.9 Gastro-esophageal reflux disease without esophagitis; D64.9 Anemia, unspecified; G47.00 Insomnia, unspecified; Z85.038 Personal history of other malignant neoplasm of large intestine; Z88.5 Allergy status to narcotic agent; Z88.1 Allergy status to other antibiotic agents; Z85.05 Personal history of malignant neoplasm of liver; Z90.49 Acquired absence of other specified parts of digestive tract; Z90.710 Acquired absence of both cervix and uterus; Z20.822 Contact with and (suspected) exposure to COVID-19
CPT/HCPCS: 36415; 80048; 81001; 81003; 81015; 82040; 83735; 84134; 85025; 87077; 87086; 87088; 87186; 92523; 97110; 97112; 97116; 97127; 97161; 97530; 97542; J1650; U0002; U0003

== ENCOUNTER 2020-11-04 02:04 | Inpatient (IN) | payer OTHER ==
[2020-11-04] MEDS ORDERED: MORPHINE 4 MG/ML SYR ONE ×3 (02:54→08:21)
[2020-11-04] MEDS ORDERED: ONDANSETRON 4 MG/2 ML VIAL ONE ×2 (02:54→08:21)
[2020-11-04 03:14] LABS: Protime INR 0.99
[2020-11-04 03:17] LABS: Absolute Lymphocytes (CBC) 3.1 K/uL (0.7-4.9); Basophils % 0.7 % (0-1.3); Hematocrit 37.1 % (36.0-45.0); Lymphocytes % 40.5 % (15.3-44.8); MPV 9.3 fL (7.6-11.3); RBC Red Blood Cell Count 3.91 M/uL (3.86-4.86)
[2020-11-04 03:23] LABS: ALT/SGPT 31 U/L (12-78); AST/SGOT 21 U/L (15-37); Albumin 3.4 g/dL (3.4-5.0); Alkaline Phosphatase 116 U/L (45-117); BUN Blood Urea Nitrogen 28 mg/dL (7-18); Bicarbonate 22 mmol/L (21-32); Bilirubin Direct 0.1 mg/dL (0-0.2); Bilirubin Total 0.5 mg/dL (0.2-1.0); Glucose Level 126 mg/dL (74-106); Magnesium 2.3 mg/dL (1.8-2.4); NT PRO-BNP 316 pg/mL (<450); Potassium 3.4 mmol/L (3.5-5.1); Protein, Total 6.9 g/dL (6.4-8.2); Sodium Level 141 mmol/L (136-145); Troponin (Emerg Dept Use Only) < 0.02 ng/mL (0.0-0.045)
[2020-11-04 03:53] LABS: Urine Blood Negative (Negative); Urine Glucose Negative (Negative); Urine Protein Negative (Negative); Urine Specific Gravity 1.025 (1.005-1.030)
--- NOTE | 2020-11-04 06:35 | ER ---
Nurse's Notes [facility] Name: Elvi Roberts Age: 89 yrs Sex: Female : 1930 Arrival Date: 11/04/2020 Time: 02:15 Bed 8 Private MD: Diagnosis: Displaced fracture of base of neck of right femur Presentation: 11/04 02:00 Chief complaint: EMS states: she was going to restroom then fell down. complaining of rr5 right hip pain, positive shortening. positive blood thinner, denies LOC history of left hip surgery 6 weeks ago. 02:00 Coronavirus screen: Client denies travel out of the [place] in the last 14 days. At this rr5 time, the client does not indicate any symptoms associated with coronavirus-19. Ebola Screen: Patient negative for fever greater than or equal to 101.5 degrees Fahrenheit, and additional compatible Ebola Virus Disease symptoms Patient denies exposure to infectious person. Patient denies travel to an Ebola-affected area in the 21 days before illness onset. 02:00 Method Of Arrival: EMS: [facility] rr5 02:00 Initial Sepsis Screen: Does the patient meet any 2 criteria? No. Patient's initial rr5 sepsis screen is negative. Does the patient have a suspected source of infection? No. Patient's initial sepsis screen is negative. Risk Assessment: Do you want to hurt yourself or someone else? Patient reports no desire to harm self or others. Onset of symptoms was November 04, 2020. 02:00 Acuity: CHRISSY 2 rr5 02:00 Care prior to arrival: Placed on backboard. Medication(s) given: fentanyl 75 mcg/IV. rr5 02:00 Care prior to arrival: IV initiated. 18 GA, in the left forearm. mg2 04:15 Mechanism of Injury: Fall from standing position. Trauma event details: Injury occurred mg2 in the [facility], Injury occurred: at home. Injury occurred: November 04, 2020. Trauma Activation: Alert Physician: ED Physician; Name: ; Notified At: ; Arrived At: Physician: General Surgeon; Name: ; Notified At: ; Arrived At: Physician: Radiology; Name: ; Notified At: ; Arrived At: Physician: Respiratory; Name: ; Notified At: ; Arrived At: Physician: Lab; Name: ; Notified At: ; Arrived At: Historical: - Allergies: 02:20 Codeine; rr5 02:20 PENICILLINS; rr5 02:20 Sulfa (Sulfonamide Antibiotics); rr5 - PMHx: 02:20 colon cancer; GERD; Hypertension; Hypothyroidism; liver cancer; neuropathy; rr5 - PSHx: 02:20 left hip surgery; rr5 - Immunization history:: Adult Immunizations up to date. - Social history:: Smoking status: unknown Patient/guardian denies using alcohol, street drugs, The patient lives with family. - Immunization history: Last tetanus immunization: unknown. - Family history:: not pertinent. Screenin:22 Abuse screen: Denies threats or abuse. Denies injuries from another. Nutritional rr5 screening: No deficits noted. Tuberculosis screening: No symptoms or risk factors identified. Fall Risk Fall in past 12 months (25 points). IV access (20 points). Gait- Impaired (20 pts.). [place] Fall Scale indicates High Risk Score (45 or more points). Fall prevention measures have been instituted. Side Rails Up X 2 Placed Close to Nursing Station Frequent Obs/Assessments Occuring Family Present and informed to notify staff if the need to leave the bedside As available patient and family educated on Fall Prevention Program and Strategies. Primary Survey: 02:00 NO uncontrolled hemorrhage observed. A: The patient is alert. Airway: patent, Trachea rr5 midline. Breathing/Chest: Respiratory pattern: regular, Respiratory effort: spontaneous, unlabored, Breath sounds: clear, bilaterally. Chest inspection: symmetrical rise and fall of the chest. Circulation: Pulses: palpable right dorsalis pedis artery and left dorsalis pedis artery. Disability Alert. Exposure/Environment: There is no evidence of uncontrolled external bleeding. Obvious injury(ies) are noted at this time: right hip pain A warming method has been applied: A warm blanket has been provided to the patient. 04:14 Reassessment Airway Airway Patent Breathing/Chest Respiratory pattern Regular mg2 Respiratory effort Spontaneous Unlabored Circulation Color [place] Disability Alert. Secondary Survey: 02:05 HEENT: No deficits noted. Gastrointestinal: No deficits noted. Abdomen is soft. : No rr5 signs and/or symptoms were reported regarding the genitourinary system. Musculoskeletal: Capillary refill < 3 seconds, Reports pain in right leg. Assessment: 02:05 General: Appears in no apparent distress. uncomfortable, Behavior is calm, cooperative, rr5 appropriate for age. Pain: Complains of pain in right hip. Neuro: Level of Consciousness is awake, alert, obeys commands, Oriented to person, place, time. Cardiovascular: Capillary refill < 3 seconds Patient's skin is warm and dry. Respiratory: Airway is patent Respiratory effort is even, unlabored, Respiratory pattern is regular, symmetrical. GI: No signs and/or symptoms were reported involving the gastrointestinal system. : No signs and/or symptoms were reported regarding the genitourinary system. EENT: No signs and/or symptoms were reported regarding the EENT system. Derm: Skin is intact, is healthy with good turgor, Skin temperature is warm. Musculoskeletal: Capillary refill < 3 seconds, Reports pain in pelvis and right leg. 03:27 Reassessment: Reassessment: patient and family informed by the provider about the plan mg2 of admitting the patient in the hospital, provider said he will wait til morning and speak to Dr Limon and Dr Cantrell (primary care) about the plan. 05:29 Reassessment: Patient appears in no apparent distress at this time. Patient and/or mg2 family updated on plan of care and expected duration. Pain level reassessed. Patient is alert, oriented x 3, equal unlabored respirations, skin warm/dry/pink. 07:34 Reassessment: Telephone order from Dr. Cantrell, D5-NS 75 ml/hr and 20 mEq Potassium in 100 jl7 cc over 2 hours. 08:00 Reassessment: Patient c/o right hip pain 10/10. Dr. Cantrell notified. Telephone order for jl7 Morphine 2 mg IVP Q4hr PRN Mild-Mod Pain. Morphine 4mg IVP Q4hr PRN mod-severe pain. 4mg Ondansetron IVP Q4hr PRN nausea-vomiting. 09:00 Reassessment: Patient appears in no apparent distress at this time. Pt laying in bed jl7 with eyes closed, respirations even and unlabored, no signs of distress noted at this time. 10:00 Reassessment: Patient appears in no apparent distress at this time. No changes from jl7 previously documented assessment. Family remains at bedside. Vital Signs: 02:00 BP 159 / 66; Pulse 84; Resp 17; Temp 98.9; Pulse Ox 99% ; Pain 8/10; rr5 02:59 BP 142 / 68; Pulse 78; Resp 18; Pulse Ox 97% on R/A; mg2 04:13 BP 121 / 53; Pulse 78; Resp 18; Pulse Ox 95% on R/A; mg2 05:31 BP 108 / 93; Pulse 78; Resp 18; Pulse Ox 93% on R/A; mg2 06:28 BP 128 / 62; Pulse 81; Resp 18; Pulse Ox 96% on R/A; mg2 06:32 Weight 72.57 kg (R); tt3 07:25 BP 123 / 56; Pulse 80; Resp 18; Pulse Ox 100% ; Pain 10/10; ld1 08:45 BP 121 / 58; Pulse 77; Resp 18; Pulse Ox 96% ; Pain 4/10; ld1 09:57 BP 131 / 59; Pulse 79; Resp 18; Pulse Ox 97% ; ld1 10:39 BP 121 / 57; Pulse 74; Resp 15; Pulse Ox 97% on R/A; ld1 Rudy Coma Score: 03:00 Eye Response: spontaneous(4). Verbal Response: oriented(5). Motor Response: obeys mg2 commands(6). Total: 15. 04:14 Eye Response: spontaneous(4). Verbal Response: oriented(5). Motor Response: obeys mg2 commands(6). Total: 15. Trauma Score (Adult): 03:00 Eye Response: spontaneous(1); Verbal Response: oriented(1); Motor Response: obeys mg2 commands(2); Systolic BP: > 89 mm Hg(4); Respiratory Rate: 10 to 29 per min(4); [place] Score: 15; Trauma Score: 12 04:14 Eye Response: spontaneous(1); Verbal Response: oriented(1); Motor Response: obeys mg2 commands(2); Systolic BP: > 89 mm Hg(4); Respiratory Rate: 10 to 29 per min(4); [place] Score: 15; Trauma Score: 12 06:28 Eye Response: spontaneous(1); Verbal Response: oriented(1); Motor Response: obeys mg2 commands(2); Systolic BP: > 89 mm Hg(4); Respiratory Rate: 10 to 29 per min(4); [place] Score: 15; Trauma Score: 12 ED Course: 02:05 Patient has correct armband on for positive identification. Bed in low position. Call rr5 light in reach. Side rails up X2. Pulse ox on. NIBP on. 02:15 Patient arrived in ED. rr5 02:19 Triage completed. rr5 02:20 Arm band placed on right wrist. rr5 02:21 Maintain EMS IV. Dressing intact. Good blood return noted. Site clean \T\ dry. Gauge \T\ rr 5 site: g18 left FA. 02:23 Eliot Warren, RICHARD is Primary Nurse. rr5 02:28 Karen Abreu MD is Attending Physician. ma2 02:59 Basic Metabolic Panel Sent. mg2 03:36 Nayak cath inserted, using sterile technique, 16 Fr., by ED staff, balloon inflated, to rr5 gravity drainage, clamped. urine specimen collected. Patient tolerated well. 03:41 XRAY Chest (1 view) In Process Unspecified. EDMS 03:42 Hip Right 2 View XRAY In Process Unspecified. EDMS 03:43 Hip Left 2 View XRAY In Process Unspecified. EDMS 04:00 No provider procedures requiring assistance completed. mg2 04:14 Patient maintains SpO2 saturation greater than 95% on room air. Thermoregulation: warm mg2 blanket given to patient. 06:34 Jackson Cantrell MD is Hospitalizing Provider. ma2 07:08 CBC with Automated Diff Sent. jl7 10:52 Patient admitted, IV remains in place. intact, No redness/swelling at site. ld1 Administered Medications: 02:33 Drug: Zofran (Ondansetron) 4 mg Route: IVP; Site: left forearm; mg2 04:04 Follow up: Response: No adverse reaction mg2 02:35 Drug: morphine 4 mg Route: IVP; Site: left forearm; mg2 04:04 Follow up: Response: No adverse reaction mg2 03:08 Drug: morphine 4 mg Route: IVP; Site: left forearm; mg2 04:02 Follow up: Response: No adverse reaction; RASS: Alert and Calm (0) mg2 06:46 Drug: D5-NS 1000 ml Route: IV; Rate: 125 ml/hr; Site: left forearm; mg2 07:33 Follow up: Rate change 75 ml/hr; Telephone order from Dr. Cantrell jl7 09:59 Follow up: IV Status: Infusion continued upon admission ld1 07:32 CANCELLED (Wrong ): Potassium Chloride 20 mEq IV at 50 ml/hr once; administer 2 hoursjl7 07:45 Drug: Potassium Chloride 20 mEq Route: IV; Rate: 50 ml/hr; Site: left femoral; ld1 09:45 Follow up: Response: No adverse reaction; IV Status: Completed infusion ld1 08:10 Drug: morphine 4 mg Route: IVP; Site: left forearm; jl7 08:40 Follow up: Response: No adverse reaction; Pain is decreased jl7 08:10 Drug: Ondansetron 4 mg Route: IVP; Site: left forearm; jl7 08:40 Follow up: Response: Nausea is decreased jl7 Intake: 03:00 PO: 0ml; Total: 0ml. mg2 Outcome: 06:34 Decision to Hospitalize by Provider. ma2 10:51 Admitted to Med/surg accompanied by tech, family with patient, via stretcher, room 430, ld1 with chart, Report called to RICHARD Malin. 10:51 Condition: stable 10:51 Discharge instructions given to patient, family, Instructed on the need for admit, Demonstrated understanding of instructions. 10:52 Patient's length of stay in the Emergency Department was greater than 2 hours. ld1 Patient's length of stay was extended due to staffing issues within the emergency department. 11:23 Patient left the ED. ld1 Signatures: Dispatcher [employer] Leon Naidu RN RN jl7 Karen Abreu MD MD ma2 Nestor Romero RN RN mg2 Eliot Warren RN RN rr5 Doe Orta 3 Raisa Sosa RN RN ld1 Corrections: (The following items were deleted from the chart) 05:31 03:27 Reassessment: mg2 mg2 10:11 07:25 Reassessment: Patient c/o 05/03 pain in right hip, notified Dr. Cantrell. See [facility] for jl7 orders. ld1 10:14 10:13 Response: No adverse reaction; Pain is decreased jl7 jl7
--- NOTE | 2020-11-04 06:35 | EDPHYS ---
Physician Documentation [facility] Name: Elvi Roberts Age: 89 yrs Sex: Female : 1930 Arrival Date: 11/04/2020 Time: 02:15 Bed 8 Private MD: ED Physician Karen Abreu HPI: 11/04 03:22 This 89 yrs old Female presents to ER via EMS with complaints of Fall Injury. ma2 03:22 Details of fall: The patient fell from an upright position. Onset: The symptoms/episode ma2 began/occurred suddenly, gradually, 1 day(s) ago. Associated injuries: The patient sustained right shoulder . Severity of symptoms: At their worst the symptoms were mild, in the emergency department the symptoms are unchanged. The patient has not experienced similar symptoms in the past. Historical: - Allergies: 02:20 Codeine; rr5 02:20 PENICILLINS; rr5 02:20 Sulfa (Sulfonamide Antibiotics); rr5 - PMHx: 02:20 colon cancer; GERD; Hypertension; Hypothyroidism; liver cancer; neuropathy; rr5 - PSHx: 02:20 left hip surgery; rr5 - Immunization history:: Adult Immunizations up to date. - Social history:: Smoking status: unknown Patient/guardian denies using alcohol, street drugs, The patient lives with family. - Immunization history: Last tetanus immunization: unknown. - Family history:: not pertinent. ROS: 03:22 Constitutional: Negative for fever, chills, and weight loss. ma2 03:22 All other systems are negative. Exam: 03:22 Constitutional: This is a well developed, well nourished patient who is awake, alert, ma2 and in no acute distress. Chest/axilla: Normal chest wall appearance and motion. Nontender with no deformity. No lesions are appreciated. Cardiovascular: Regular rate and rhythm with a normal S1 and S2. No gallops, murmurs, or rubs. Normal PMI, no JVD. No pulse deficits. Respiratory: Lungs have equal breath sounds bilaterally, clear to auscultation and percussion. No rales, rhonchi or wheezes noted. No increased work of breathing, no retractions or nasal flaring. Abdomen/GI: Soft, non-tender, with normal bowel sounds. No distension or tympany. No guarding or rebound. No evidence of tenderness throughout. Back: No spinal tenderness. No costovertebral tenderness. Full range of motion. Skin: Warm, dry with normal turgor. Normal color with no rashes, no lesions, and no evidence of cellulitis. MS/ Extremity: right hip pain and deformity, Pulses equal, no cyanosis. Neurovascular intact. Full, normal range of motion. Neuro: Awake and alert, GCS 15, oriented to person, place, time, and situation. Cranial nerves II-XII grossly intact. Motor strength 5/5 in all extremities. Sensory grossly intact. Cerebellar exam normal. Normal gait. Vital Signs: 02:00 BP 159 / 66; Pulse 84; Resp 17; Temp 98.9; Pulse Ox 99% ; Pain 8/10; rr5 02:59 BP 142 / 68; Pulse 78; Resp 18; Pulse Ox 97% on R/A; mg2 04:13 BP 121 / 53; Pulse 78; Resp 18; Pulse Ox 95% on R/A; mg2 05:31 BP 108 / 93; Pulse 78; Resp 18; Pulse Ox 93% on R/A; mg2 06:28 BP 128 / 62; Pulse 81; Resp 18; Pulse Ox 96% on R/A; mg2 06:32 Weight 72.57 kg (R); tt3 07:25 BP 123 / 56; Pulse 80; Resp 18; Pulse Ox 100% ; Pain 10/10; ld1 08:45 BP 121 / 58; Pulse 77; Resp 18; Pulse Ox 96% ; Pain 4/10; ld1 09:57 BP 131 / 59; Pulse 79; Resp 18; Pulse Ox 97% ; ld1 10:39 BP 121 / 57; Pulse 74; Resp 15; Pulse Ox 97% on R/A; ld1 [place] Coma Score: 03:00 Eye Response: spontaneous(4). Verbal Response: oriented(5). Motor Response: obeys mg2 commands(6). Total: 15. 04:14 Eye Response: spontaneous(4). Verbal Response: oriented(5). Motor Response: obeys mg2 commands(6). Total: 15. Trauma Score (Adult): 03:00 Eye Response: spontaneous(1); Verbal Response: oriented(1); Motor Response: obeys mg2 commands(2); Systolic BP: > 89 mm Hg(4); Respiratory Rate: 10 to 29 per min(4); [place] Score: 15; Trauma Score: 12 04:14 Eye Response: spontaneous(1); Verbal Response: oriented(1); Motor Response: obeys mg2 commands(2); Systolic BP: > 89 mm Hg(4); Respiratory Rate: 10 to 29 per min(4); Rudy Score: 15; Trauma Score: 12 06:28 Eye Response: spontaneous(1); Verbal Response: oriented(1); Motor Response: obeys mg2 commands(2); Systolic BP: > 89 mm Hg(4); Respiratory Rate: 10 to 29 per min(4); Rudy Score: 15; Trauma Score: 12 MDM: 02:28 Patient medically screened. ma2 03:22 Differential diagnosis: contusion, fracture, multiple trauma, strain. ma2 05:46 Data reviewed: vital signs, nurses notes. Response to treatment: There is no ma2 appreciated change of the patient's symptoms at this time. ED course: patient has right hip fracture. she has left hip replacement done by dr. Limon 6 weeks ago. I paged dr. limon at 0530 and left a voice note, no call back yet. Discussed with dr. martin, He recommend to keep her in the er and keep trying to page dr. limon again. 06:19 ED course: discussed with dr. limon, he recommends transfer for as he is not available ma to operate on her (he has a full OR list. 06:33 ED course: discussed with dr. sweeney and he is available to operate on her.. wa2 11/04 02:28 Order name: COVID-19 : Document "Date of Symptom Onset" if Symptomatic. mg2 11/04 02:30 Order name: Basic Metabolic Panel ma2 11/04 02:30 Order name: CBC with Diff; Complete Time: 03:47 ma2 11/04 02:30 Order name: LFT's 2 11/04 02:30 Order name: Magnesium ma2 11/04 02:30 Order name: NT PRO-BNP; Complete Time: 03:47 ma2 11/04 02:30 Order name: PT-INR; Complete Time: 03:47 wa2 11/04 02:30 Order name: Troponin (emerg Dept Use Only); Complete Time: 03:47 ma2 11/04 02:31 Order name: Basic Metabolic Panel; Complete Time: 03:47 EDMS 11/04 02:31 Order name: Liver (Hepatic) Function; Complete Time: 03:47 EDMS 11/04 02:31 Order name: Magnesium; Complete Time: 03:47 EDMS 11/04 03:53 Order name: Urine Dipstick-Ancillary; Complete Time: 05:30 EDMS 11/04 04:13 Order name: SARS-COV-2 RT PCR; Complete Time: 05:30 EDMS 11/04 02:30 Order name: XRAY Chest (1 view) ma2 11/04 02:30 Order name: EKG; Complete Time: 02:31 ma2 11/04 02:30 Order name: Hip Right 2 View XRAY ma2 11/04 03:02 Order name: Hip Left 2 View XRAY ma2 11/04 06:47 Order name: Basic Metabolic Panel EDMS 11/04 06:47 Order name: Basic Metabolic Panel EDMS 11/04 06:48 Order name: CBC with Automated Diff EDMS 11/04 06:48 Order name: CBC with Automated Diff EDMS 11/04 02:30 Order name: Cardiac monitoring; Complete Time: 02:59 ma2 11/04 02:30 Order name: EKG - Nurse/Tech; Complete Time: 02:59 ma2 11/04 02:30 Order name: IV Saline Lock; Complete Time: 02:59 ma2 11/04 02:30 Order name: Labs collected and sent; Complete Time: 02:59 ma2 11/04 02:30 Order name: O2 Per Protocol; Complete Time: 02:59 ma2 11/04 02:30 Order name: O2 Sat Monitoring; Complete Time: 02:59 ma2 11/04 03:36 Order name: Nayak; Complete Time: 03:36 rr5 11/04 06:35 Order name: NPO; Complete Time: 06:43 ma2 11/04 06:47 Order name: CONS Physician Consult EDSD 11/04 06:48 Order name: NPO EDMS Administered Medications: 02:33 Drug: Zofran (Ondansetron) 4 mg Route: IVP; Site: left forearm; mg2 04:04 Follow up: Response: No adverse reaction mg2 02:35 Drug: morphine 4 mg Route: IVP; Site: left forearm; mg2 04:04 Follow up: Response: No adverse reaction mg2 03:08 Drug: morphine 4 mg Route: IVP; Site: left forearm; mg2 04:02 Follow up: Response: No adverse reaction; RASS: Alert and Calm (0) mg2 06:46 Drug: D5-NS 1000 ml Route: IV; Rate: 125 ml/hr; Site: left forearm; mg2 07:33 Follow up: Rate change 75 ml/hr; Telephone order from Dr. Martin jl7 09:59 Follow up: IV Status: Infusion continued upon admission ld1 07:32 CANCELLED (Wrong MD ): Potassium Chloride 20 mEq IV at 50 ml/hr once; administer 2 hoursjl7 07:45 Drug: Potassium Chloride 20 mEq Route: IV; Rate: 50 ml/hr; Site: left femoral; ld1 09:45 Follow up: Response: No adverse reaction; IV Status: Completed infusion ld1 08:10 Drug: morphine 4 mg Route: IVP; Site: left forearm; jl7 08:40 Follow up: Response: No adverse reaction; Pain is decreased jl7 08:10 Drug: Ondansetron 4 mg Route: IVP; Site: left forearm; jl7 08:40 Follow up: Response: Nausea is decreased jl7 Disposition: 11/04/20 06:34 Hospitalization ordered by Jackson Martin for Inpatient Admission. Preliminary diagnosis is Displaced fracture of base of neck of right femur. - Bed requested for Telemetry/MedSurg (Inpatient). - Status is Inpatient Admission. ld1 - Condition is Stable. - Problem is new. - Symptoms are unchanged. Signatures: Dispatcher [employer] EDSD Lachelle Haines RN RN dw Leal, Jahala, RN RN bing7 Karen Abreu MD MD ma2 Nestor Romero RN RN mg2 Eliot Warren RN RN rr5 Raisa Sosa RN RN ld1 Corrections: (The following items were deleted from the chart) 02:39 02:29 CORONAVIRUS ordered. EDSD EDMS 07:32 07:32 Potassium Chloride 20 mEq IV at 50 ml/hr once; administer 2 hours ordered. jl7 jl7 10:22 06:34 Hospitalization Ordered by Jackson Martin MD for Inpatient Admission. Preliminary diagnosis is Displaced fracture of base of neck of right femur. Bed requested for Telemetry/MedSurg (Inpatient). Status is Inpatient Admission. Condition is Stable. Problem is new. Symptoms are unchanged. ma2 11:23 10:22 11/04/2020 06:34 Hospitalization Ordered by Jackson Martin MD for Inpatient ld1 Admission. Preliminary diagnosis is Displaced fracture of base of neck of right femur. Bed requested for Telemetry/MedSurg (Inpatient). Status is Inpatient Admission. Condition is Stable. Problem is new. Symptoms are unchanged. dw
[2020-11-04] MEDS ORDERED: ONDANSETRON 4 MG/2 ML VIAL IV PRN ×2 (06:44→10:01)
[2020-11-04] MEDS: D5 0.45 NS 1,000 ML IV SCH ×2 (07:00→17:17)
[2020-11-04] MEDS ORDERED: D5 0.45 NS 0 ML IV ONE (07:04)
[2020-11-04] MEDS ORDERED: D5 0.9 NS 1,000 ML IV ONE (07:06)
[2020-11-04] MEDS ORDERED: KCL 20 MEQ/100 mL IVPB 20 MEQ/100 ML BAG IV ONE (08:01)
--- NOTE | 2020-11-04 08:37 | RAD REPORT ---
EXAM DESCRIPTION: RAD - Hip Left 2 View - 11/04/2020 3:43 am CLINICAL HISTORY: PAIN COMPARISON: Hip Left 2 View dated 09/23/2020; Hip Right 2 View dated 11/04/2020; Chest Single View date d 11/04/2020 FINDINGS: Left total hip arthroplasty is noted. No hardware complication is present. Soft tissue swe lling is seen.
--- NOTE | 2020-11-04 08:39 | RAD REPORT ---
EXAM DESCRIPTION: RAD - Hip Right 2 View - 11/04/2020 3:42 am CLINICAL HISTORY: DEFORMITY Pain and swelling COMPARISON: No comparisons FINDINGS: Intratrochanteric fracture the proximal right femur is seen with varus angulation. No disl ocation.
--- NOTE | 2020-11-04 08:40 | RAD REPORT ---
EXAM DESCRIPTION: RAD - Chest Single View - 11/04/2020 3:41 am CLINICAL HISTORY: CHEST PAIN Chest pain. COMPARISON: Chest Single View dated 09/21/2020; Chest Single View dated 09/18/2020; Chest Single View dated 10/04/2017; CHEST PA AND LAT 2 VIEW dated 01/01/2014 FINDINGS: Portable technique limits examination quality. The lungs are mildly emphysematous but grossly clear. The heart is normal in size. No displaced fract ures. IMPRESSION: No acute intrathoracic process suspected.
[2020-11-04 11:21] VITALS: BMI 23.6
[2020-11-04] MEDS: MORPHINE 4 MG/ML SYR IV PRN ×2 (11:57→15:54)
--- NOTE | 2020-11-04 16:33 | EKG ---
Test Date: 2020-11-04 Test Time: 02:42:33 Pm Technician: MG MEASUREMENT RESULTS: Intervals: Rate: 82 CT: 190 QRSD: 126 QT: 418 QTc: 488 [place]: P: 68 CT: 190 QRS: -63 T: 88 INTERPRETIVE STATEMENTS: Normal sinus rhythm Left axis deviation Left bundle branch block Abnormal ECG Compared to ECG 09/22/2020 09:51:17 Sinus bradycardia no longer present Sinus arrhythmia no longer present First degree AV block no longer present Electronically Signed On 11-04-20 16:32:50 CDT by Jose Jones
[2020-11-04] MEDS: TRAZODONE 50 MG TABLET PO SCH (21:44)
[2020-11-04] MEDS ORDERED: AMLODIPINE 10 MG TAB PO ONE (22:00)
[2020-11-04] MEDS ORDERED: lisinopriL 20 MG TAB PO ONE (22:00)
--- NOTE | 2020-11-05 02:09 | CON ---
Date of Consultation: 11/04/2020 History Of Present Illness: I have seen this patient in the past. She is an 89-year-old female who unfortunately fell injuring her right lower extremity. She was seen and examined in the emergency de partment. She was ruled out for other injuries; however, she does have a displaced basicervical frac ture on the right. Physical Examination: All of her long bones and joints were palpated without pain or crepitation with the exception of her right hip, which is painful to palpation or manipulation. Imaging: X-rays revealed a displaced basicervical fracture on the right. It should be noted that kt pabon has a left hemiarthroplasty, which was done by another surgeon approximately 6 weeks ago, but she h as been doing well from that. Assessment: An 89-year-old female who unfortunately now has a right basicervical fracture of the hip . Plan: At this time, risks, benefits, and alternatives have been discussed with the patient's family and will most likely move forward with this tomorrow afternoon. She can have a diet now, but perhaps 1 dose of Lovenox. Otherwise, SCDs and we will see her for surgery tomorrow. All of her questions as well as of her family have been answered. /CURTIS Voice ID: [id number] Report ID: [id number]
[2020-11-05] MEDS: D5 0.45 NS 1,000 ML IV SCH ×3 (03:32→23:00)
[2020-11-05 04:07] LABS: Absolute Lymphocytes (CBC) 1.5 K/uL (0.7-4.9); Basophils % 0.5 % (0-1.3); Hematocrit 29.2 % (36.0-45.0); Lymphocytes % 20.9 % (15.3-44.8); MPV 9.5 fL (7.6-11.3); RBC Red Blood Cell Count 3.08 M/uL (3.86-4.86)
[2020-11-05 04:51] LABS: Potassium 4.1 mmol/L (3.5-5.1)
[2020-11-05] MEDS: MORPHINE 4 MG/ML SYR IV PRN (05:23)
--- NOTE | 2020-11-05 07:19 | HP ---
Date of Admission: 11/04/2020 Chief Complaint: Fall and hip pain. History Of Present Illness: This is an 89-year-old female patient who had left hip fracture and surg enma for that about a month ago and she was in a long term for a while and subsequently she came ho me and after she came home her family has been staying with her. During nighttime last night, she go t up with using her walker to go to the bathroom and as she was at the bathroom door, she lost her ba shraddha, fell down and family who was in other bedroom heard the noise and found her on the floor with a walker close by. She was complaining of pain in her other hip and she was brought into emergency r oom and further evaluation revealed presence of hip fracture and she was admitted to the hospital. I saw her in the emergency room. Her son and [id number]-[id number]-wsk were present at bedside. Allergies: TO CODEINE CAUSING NAUSEA AND VOMITING, PENICILLIN CAUSING RASH, SULFA CAUSING RASH. Medications List: Reviewed. Review of Systems: Musculoskeletal: As mentioned above. All other systems reviewed and negative. Past Medical History: Significant for hypertension, hypothyroidism, impaired fasting glucose, hyperl ipidemia, gastroesophageal reflux disease, chronic constipation, colon cancer, overactive bladder, le g edema, osteoarthritis at multiple sites, insomnia, osteoporosis. Past Surgical History: Significant for cataract surgery, eyelid surgery, tonsillectomy, cholecystect ernie, appendectomy, hemorrhoid surgery, hysterectomy, partial colectomy, ankle surgery and left hip fr acture surgery done beginning of September of this year. Family History: Significant for father and had coronary artery disease and HI. Mother , bellamy d hypertension and HI. Brother also had coronary artery disease and HI and sister had diabetes. Social History: Negative for smoking and alcohol use. Physical Examination: Vital Signs: When she was in the emergency room, blood pressure 159/66, pulse 84, respiratory rate 1 7, temperature 98.9, oxygen saturation 99%. Weight 72.57 kg. General: Awake, alert, oriented, not in distress. HEENT: Head atraumatic, normocephalic. Conjunctivae nonerythematous. Sclerae white. Mouth, no thr ush or edema noted. Ears/Nose, no mass, lesion, discharge noted. Neck: Supple. No JVD, lymph nodes, bruit, thyromegaly noted. Lungs: Bilateral good equal air entry. Clear to auscultation. No rhonchi. No rales. Heart: Normal heart sounds, no murmur or gallop. Abdomen: Soft, bowel sounds normal. No guarding, rigidity, tenderness, mass, hepatosplenomegaly, dis tention, or bruit noted. Extremities: No leg edema. No calf tenderness. Skin: No rash, ulcer, cellulitis. Lymphatics: No lymph node enlargement in neck, supraclavicular, infraclavicular region. Neuro: No focal neurological deficit. Chest: Unremarkable. External Genitalia: Deferred. Rectal: Deferred. Laboratory Data: White count 7.6, hemoglobin 12.7, platelets 294. INR 0.99. Sodium 141, potassium 3.4, chloride 110, bicarb 22, BUN 28, creatinine 0.91, glucose 126. Liver function tests unremarkabl e. Troponin less than 0.02. Urinalysis negative. COVID-19 test negative. Chest x-ray, no acute ch anges. Hip x-ray shows presence of hip fracture. Impression: 1.Right hip fracture. 2.Hypokalemia. 3.Hypertension. 4.Hypothyroidism. 5.Impaired fasting glucose. 6.Hyperlipidemia. 7.Colon cancer. 8.Chronic constipation. 9.Gastroesophageal reflux disease. 10.Osteoarthritis, multiple sites. 11.Insomnia. Plan: Admit patient to hospital for further evaluation and management of this problem. The patient is appropriate for inpatient and is expected to spend 2 midnights in hospital. We will go ahead and consult orthopedic surgeon, Dr. Kirkland. Replace potassium per order. The patient is at acceptabl e risk from planned surgery. Home medications will be continued per order. Pain medication and naus ea medication will be given per order. Details of plan of treatment discussed with the patient and h er family. I will see her tomorrow for followup. HUBERT/MODL Voice ID: [id number]
[2020-11-05] MEDS: MORPHINE 2 MG/ML SYR IV PRN (08:58)
[2020-11-05] MEDS: lisinopriL 20 MG TAB PO ONE ×2 (10:04→10:18)
[2020-11-05] MEDS ORDERED: METOPROLOL TARTRATE 5 MG/5 ML INJ IV STA (10:39)
[2020-11-05] MEDS: NITROGLYCERIN 1 GM PKT TD SCH ×2 (11:01→18:06)
[2020-11-05] MEDS ORDERED: Ringers Lactate 1,000 ML IV ONE (14:03)
[2020-11-05] MEDS ORDERED: FENTANYL CITR 100 MCG/2 ML ONE (15:12)
[2020-11-05] MEDS ORDERED: propofoL 200 MG/20 ML VIAL IV ONE (15:47)
[2020-11-05] MEDS ORDERED: CLINDAMYCIN INJ 600 MG in NA CHLORIDE 0.9% 50 ML IV ONE (16:00)
--- NOTE | 2020-11-05 16:41 | P.BOP ---
Preoperative diagnosis: right basicervial hip fracture Postoperative diagnosis: same Primary procedure: right hip SEBASTIAN nnamdi fixation Estimated blood loss: 150ccs Anesthesia: General Complications: None Transferred to: Recovery Room Condition: Good
--- NOTE | 2020-11-05 17:38 | RAD REPORT ---
EXAM DESCRIPTION: RAD - Hip In Or - 11/05/2020 5:31 pm CLINICAL HISTORY: Femoral fracture FINDINGS: Fluoroscopy time 1.3 minutes. 3 fluoroscopic spot images obtained Surgery performed by Dr. Kirkland Compression screw and intramedullary nnamdi affix a femoral fracture
--- NOTE | 2020-11-05 20:13 | OP ---
Date of Procedure: 11/05/2020 Surgeon: Omega Kirkland MD Preoperative Diagnosis: Displaced right basicervical fracture. Postoperative Diagnosis: Displaced right basicervical fracture. Procedure: Right hip closed reduction with intramedullary nnamdi fixation using the AFFIXUS nail system . Estimated Blood Loss: 150 cc. Complications: No complications. No pathology specimens sent. Indication For Operation: Ms. Roberts is an -aujc-qrp female who unfortunately fell in juring her right lower extremity. She was seen and examined in the emergency department where she wa s ruled out for other injuries. However, unfortunately, x-rays demonstrated a displaced basicervical fracture of the hip. I saw her yesterday in consultation. All her long bones or joints were palpat ed without pain or crepitation with the exception of her right hip. I reviewed her x-ray, do reveal a displaced basicervical fracture of the hip. Procedure In Detail: The patient was taken to the operating room, placed in supine position. Genera l anesthesia was easily obtained by staff. Following this, she was then properly positioned with car e being taken not to jeopardize the previous left bipolar hemiarthroplasty. Biplanar C-arm radiograp hy was able to be performed, which demonstrates a good reduction and good ability to obtain these luis ges. The right lower extremity was then prepped and draped in usual sterile manner for this procedur e. After this, greater trochanter was marked out. A vertical incision was made above this. Startin g awl was used and guide pin was placed without difficulty. This allowed for placement of the nnamdi. The entry reamer was then performed and the nnamdi was then placed. The cephalomedullary screw was plac ed in standard fashion. This followed by placement of the antirotation screw. These were checked us ing biplanar C-arm radiography. This was followed by placement of the static distal interlocking scr ew. After this, the wounds were irrigated and the fascia was closed in a watertight fashion using he aric Vicryl sutures followed by closure of skin with Vicryl and chiara. The patient was then placed in Aquacel dressing, awakened, and taken to recovery room in good condition. No complications. SE/MODL Voice ID: [id number] Report ID: [id number]
[2020-11-05] MEDS: TRAZODONE 50 MG TABLET PO SCH (21:18)
[2020-11-06] MEDS: NITROGLYCERIN 1 GM PKT TD SCH ×4 (00:11→17:39)
[2020-11-06] MEDS: D5 0.45 NS 1,000 ML IV SCH (02:56)
[2020-11-06] MEDS: MORPHINE 2 MG/ML SYR IV PRN (03:43)
--- NOTE | 2020-11-06 06:08 | PN ---
Date of Progress Note: 11/05/2020 Subjective: Patient was seen this morning for followup. No new complaints or problems reported by h er except she was noted to be confused as of last night and this morning also. Same thing happened d uring last hospital stay, and over period of hospital stay, her confusion problem improved. She did not know where she was or what she was doing how she got here. I tried to explain it to her. Objective: Vital Signs: Reviewed. HEENT: Unremarkable. Lungs: Clear to auscultation. Cardiac: Heart sounds normal. Abdomen: Soft, bowel sounds normal. No guarding, rigidity, tenderness, or distention. Extremities: No leg edema. Impression: 1.Right hip fracture. 2.Hypertension. 3.Constipation. Plan: We will go ahead and continue current medications. Continue current pain medication. The pat meghan will have her hip surgery today and we will continue current antihypertensive medication per ord er. I will see her tomorrow in followup. HUBERT/MODL Voice ID: [id number] Report ID: [id number]
[2020-11-06] MEDS ORDERED: MAGNESIUM HYDROXIDE 8% 30 ML PO PRN (06:29)
[2020-11-06 06:57] LABS: Absolute Lymphocytes (CBC) 1.3 K/uL (0.7-4.9); Basophils % 0.3 % (0-1.3); Lymphocytes % 13.3 % (15.3-44.8); MPV 9.4 fL (7.6-11.3); RBC Red Blood Cell Count 2.75 M/uL (3.86-4.86)
[2020-11-06 07:05] LABS: BUN Blood Urea Nitrogen 13 mg/dL (7-18); Bicarbonate 23 mmol/L (21-32); Glucose Level 140 mg/dL (74-106); Potassium 3.5 mmol/L (3.5-5.1); Sodium Level 137 mmol/L (136-145)
[2020-11-06] MEDS: ENOXAPARIN 40 MG/0.4 ML SQ SCH (09:00)
[2020-11-06] MEDS: AMLODIPINE 10 MG TAB PO SCH (09:14)
[2020-11-06] MEDS: lisinopriL 20 MG TAB PO SCH (09:15)
[2020-11-06] MEDS: DOCUSATE NA/SENNA CONC 1 TAB PO SCH ×2 (09:16→20:03)
[2020-11-06 09:34] LABS: Blood Morphology Comment NOT SEEN (NOT SEEN); Platelet Estimate ADEQ; White Blood Cell Scan OK (OK)
[2020-11-06] MEDS ORDERED: AMLODIPINE 10 MG TAB PO ONE (10:04)
[2020-11-06] MEDS: HYDROCODONE/APAP 5/325 MG TAB PO PRN (18:33)
[2020-11-06] MEDS: TRAZODONE 50 MG TABLET PO SCH (20:03)
--- NOTE | 2020-11-06 22:02 | PN ---
Date of Progress Note: 11/06/2020 Subjective: The patient was seen this morning for followup. She was lying in bed, not in distress, easily arousable. No complaints or problems reported overnight by nursing staff. Objective: Vital Signs: Reviewed. HEENT: Unremarkable. Lungs: Clear to auscultation. Heart: Sounds normal. Abdomen: Soft. Bowel sounds normal. No guarding, rigidity, tenderness, or distention. Extremities: No leg edema. Impression: 1.Right hip basicervical fracture, status post surgery. 2.Acute blood loss anemia. 3.Hypertension. 4.Chronic constipation. Plan: We will go ahead and continue current medications. We will start her on oral pain medication, [place] 5 mg every 4 hours as needed for pain; start the patient on stool softener, Senokot-S 2 tablet s 2 times a day; and Lovenox for DVT prophylaxis. Continue antihypertensive medication per order. P hysical therapy was ordered and consultation was ordered for inpatient rehab. Details were discussed with the patient's son and xmpiayfa-ba-pea. I will see her tomorrow for followup. HUBERT/MODL Voice ID: [id number] Report ID: [id number]
[2020-11-07] MEDS: HYDROCODONE/APAP 5/325 MG TAB PO PRN (03:07)
[2020-11-07] MEDS: NITROGLYCERIN 1 GM PKT TD SCH ×4 (06:00→17:14)
[2020-11-07] MEDS: ENOXAPARIN 40 MG/0.4 ML SQ SCH (08:24)
[2020-11-07] MEDS: DOCUSATE NA/SENNA CONC 1 TAB PO SCH ×2 (08:25→20:04)
[2020-11-07] MEDS: FE SULF/FA/VIT B COMP & C TAB PO SCH (08:25)
[2020-11-07] MEDS: lisinopriL 20 MG TAB PO SCH (08:25)
[2020-11-07] MEDS: AMLODIPINE 10 MG TAB PO SCH (08:25)
[2020-11-07] MEDS: TRAZODONE 50 MG TABLET PO SCH (20:04)
--- NOTE | 2020-11-07 20:38 | PN ---
Date of Progress Note: 11/07/2020 Subjective: Patient was seen this morning for followup, lying in bed, not in distress. Objective: Vital Signs: Reviewed. HEENT: Unremarkable. Lungs: Clear to auscultation. Cardiac: Heart sounds normal. Abdomen: Soft, bowel sounds normal. No guarding, rigidity, tenderness, or distention. Extremities: No leg edema. Impression: 1.Right hip basicervical fracture, status post surgery. 2.Acute blood loss anemia. 3.Hypertension. 4.Chronic constipation. Plan: We will continue current medications. Continue current pain medication which seems to be cont rolling her pain very well. Continue current DVT prophylaxis and we will repeat blood work tomorrow morning. We are waiting for rehab evaluation to see if she would qualify to go to inpatient rehab or not. HUBERT/MODL Voice ID: [id number] Report ID: [id number]
[2020-11-07] MEDS ORDERED: HALOPERIDOL LACT 5 MG/ML INJ IV PRN (20:44)
[2020-11-07] MEDS ORDERED: ZIPRASIDONE MESYLA 20 MG/VIAL IM ONE (20:44)
[2020-11-07] MEDS ORDERED: WATER FOR INJ,STERILE 10 ML IM PRN (20:44)
[2020-11-08] MEDS: NITROGLYCERIN 1 GM PKT TD SCH ×5 (00:33→23:56)
[2020-11-08] MEDS: HYDROCODONE/APAP 5/325 MG TAB PO PRN (06:09)
[2020-11-08 07:03] LABS: BUN Blood Urea Nitrogen 13 mg/dL (7-18); Bicarbonate 25 mmol/L (21-32); Glucose Level 115 mg/dL (74-106); Magnesium 2.2 mg/dL (1.8-2.4); Potassium 3.4 mmol/L (3.5-5.1); Sodium Level 138 mmol/L (136-145)
[2020-11-08 07:23] LABS: Absolute Lymphocytes (CBC) 0.9 K/uL (0.7-4.9); Hematocrit 24.9 % (36.0-45.0); Lymphocytes % 11.4 % (15.3-44.8); MPV 9.4 fL (7.6-11.3); RBC Red Blood Cell Count 2.65 M/uL (3.86-4.86)
[2020-11-08] MEDS: AMLODIPINE 10 MG TAB PO SCH (08:38)
[2020-11-08] MEDS: lisinopriL 20 MG TAB PO SCH (08:38)
[2020-11-08] MEDS: ENOXAPARIN 40 MG/0.4 ML SQ SCH (08:39)
[2020-11-08] MEDS: DOCUSATE NA/SENNA CONC 1 TAB PO SCH ×2 (08:39→20:39)
[2020-11-08] MEDS: FE SULF/FA/VIT B COMP & C TAB PO SCH (08:39)
[2020-11-08] MEDS ORDERED: POTASSIUM CL SA 10 MEQ TAB PO ONE ×2 (10:00→16:30)
--- NOTE | 2020-11-08 12:55 | PN ---
Date of Progress Note: 11/08/2020 Subjective: The patient was seen this morning for followup. Last night, the patient pulled her IV o ut and was very agitated and was pulling on her Nayak catheter. When nurse contacted me, she was adv ised to remove Nayak catheter, re-establish IV access, and give Geodon 10 mg IM x1 dose and then Hald ol was ordered as well. This morning, when I saw her, the patient was calm, sleeping, easily arousab le, not in distress. Denied any complaints. Denied any pain. Objective: Vital Signs: Reviewed. HEENT: Unremarkable. Lungs: Clear to auscultation. Heart: Sounds normal. Abdomen: Soft. Bowel sounds normal. No guarding, rigidity, tenderness, distention. Extremities: No leg edema. Laboratory Data: White count 8.3, hemoglobin 8.3, platelets 237. Sodium 138, potassium 3.4, chlorid e 107, bicarb 25, BUN 13, creatinine 0.58, glucose 115, magnesium 2.2. Impression: 1.Right hip fracture. 2.Senile dementia. 3.Hypokalemia. 4.Acute blood loss anemia. 5.Hypertension. Plan: We will continue current medications. Replace electrolytes per protocol. Continue iron suppl ement. We will discontinue trazodone that she takes at nighttime, instead of that start her on Seroq uel 25 mg at bedtime and continue p.r.n. use of Haldol. Continue current antihypertensive medication . During her last hospital stays, she also had confusion, which improved over period of time and she is having same problem this time. The patient is showing signs of dementia. I will go ahead and co ntinue this current medications and I will see how she responds to it. Physical therapy to continue to work with her and I will see her in the morning for followup. HUBERT/MODL Voice ID: [id number] Report ID: [id number]
[2020-11-08] MEDS: QUETIAPINE 25 MG TAB PO SCH (20:39)
[2020-11-09] MEDS: HYDROCODONE/APAP 5/325 MG TAB PO PRN ×2 (06:09→17:21)
[2020-11-09] MEDS: NITROGLYCERIN 1 GM PKT TD SCH ×3 (06:15→17:16)
[2020-11-09 06:55] LABS: BUN Blood Urea Nitrogen 19 mg/dL (7-18); Bicarbonate 25 mmol/L (21-32); Glucose Level 102 mg/dL (74-106); Potassium 3.9 mmol/L (3.5-5.1); Sodium Level 136 mmol/L (136-145)
[2020-11-09] MEDS: lisinopriL 20 MG TAB PO SCH (08:57)
[2020-11-09] MEDS: AMLODIPINE 10 MG TAB PO SCH (08:58)
[2020-11-09] MEDS: ENOXAPARIN 40 MG/0.4 ML SQ SCH (08:58)
[2020-11-09] MEDS: FE SULF/FA/VIT B COMP & C TAB PO SCH (08:59)
[2020-11-09] MEDS ORDERED: POTASSIUM CL SA 10 MEQ TAB PO ONE ×2 (09:00)
[2020-11-09] MEDS: DOCUSATE NA/SENNA CONC 1 TAB PO SCH ×2 (09:01→20:40)
--- NOTE | 2020-11-09 12:56 | PN ---
Date of Progress Note: 11/09/2020 Subjective: The patient was seen this morning for followup. No new complaints or problems reported by patient. She was sleeping, easily arousable, not in any distress. Denies any pain anywhere. Objective: Vital Signs: Reviewed. HEENT: Examination unremarkable. Lungs: Clear to auscultation. Heart: Sounds normal. Abdomen: Soft. Bowel sounds normal. No guarding, rigidity, tenderness, or distention. Extremities: No leg edema. Laboratory Data: Sodium 136, potassium 3.9, chloride 107, bicarb 25, BUN 19, creatinine 0.59, glucos e 102. Impression: 1.Right hip basicervical fracture, status post surgery. 2.Anemia due to acute blood loss. 3.Hypertension. 4.Chronic constipation. 5.Mild dementia. Plan: We will continue current medication including Seroquel. Continue current pain. Medication an d DVT prophylaxis with Lovenox. Physical therapy to continue to work with the patient. I will see h er tomorrow for followup. We will repeat blood work tomorrow morning. HUBERT/MODL Voice ID: [id number] Report ID: [id number]
[2020-11-09] MEDS: QUETIAPINE 25 MG TAB PO SCH (20:40)
[2020-11-10] MEDS: NITROGLYCERIN 1 GM PKT TD SCH ×4 (01:21→17:22)
[2020-11-10 04:01] LABS: Absolute Lymphocytes (CBC) 2.3 K/uL (0.7-4.9); Basophils % 1.1 % (0-1.3); Hematocrit 26.1 % (36.0-45.0); Lymphocytes % 26.9 % (15.3-44.8); MPV 9.2 fL (7.6-11.3); RBC Red Blood Cell Count 2.77 M/uL (3.86-4.86)
[2020-11-10 04:12] LABS: Potassium 4.3 mmol/L (3.5-5.1)
[2020-11-10] MEDS: HYDROCODONE/APAP 5/325 MG TAB PO PRN (05:21)
[2020-11-10] MEDS: FE SULF/FA/VIT B COMP & C TAB PO SCH (08:52)
[2020-11-10] MEDS: APIXABAN 2.5 MG TABLET PO SCH ×2 (08:53→22:16)
[2020-11-10] MEDS: lisinopriL 20 MG TAB PO SCH (08:53)
[2020-11-10] MEDS: DOCUSATE NA/SENNA CONC 1 TAB PO SCH ×2 (08:53→22:16)
[2020-11-10] MEDS: AMLODIPINE 10 MG TAB PO SCH (08:53)
[2020-11-10] MEDS: QUETIAPINE 25 MG TAB PO SCH (22:17)
--- NOTE | 2020-11-11 00:06 | PN ---
Date of Progress Note: 11/10/2020 Subjective: The patient was seen this morning for followup. No new complaints or problems reported by the patient. Lying in bed, not in distress. Denies any pain. No nausea. No vomiting. Objective: Vital Signs: Reviewed. HEENT: Unremarkable. Lungs: Clear to auscultation. Heart: Sounds normal. Abdomen: Soft. Bowel sounds normal. No guarding, rigidity, tenderness, distention. Extremities: No leg edema. Laboratory Data: White count 8.4, hemoglobin 9, platelets 315. Sodium 138, potassium 4.3, chloride 106, bicarb 25, BUN 20, creatinine 0.68, glucose 87. Impression: 1.Right hip fracture. 2.Anemia due to acute blood loss. 3.Hypertension. 4.Chronic constipation. 5.Senile dementia. Plan: We will continue current pain medication. Continue iron supplement. We will start the patien t on Eliquis 2.5 mg 2 times a day for DVT prophylaxis and discontinue Lovenox injection. Physical th erapy to continue to work with the patient and continue current antihypertensive medication and stool softener. I will see her tomorrow for followup. HUBERT/MODL Voice ID: [id number] Report ID: [id number]
[2020-11-11] MEDS: NITROGLYCERIN 1 GM PKT TD SCH ×5 (00:57→17:15)
[2020-11-11] MEDS: lisinopriL 20 MG TAB PO SCH (08:29)
[2020-11-11] MEDS: AMLODIPINE 10 MG TAB PO SCH (08:30)
[2020-11-11] MEDS: DOCUSATE NA/SENNA CONC 1 TAB PO SCH ×2 (08:30→20:57)
[2020-11-11] MEDS: FE SULF/FA/VIT B COMP & C TAB PO SCH (08:30)
[2020-11-11] MEDS: APIXABAN 2.5 MG TABLET PO SCH ×2 (08:30→21:02)
[2020-11-11] MEDS: HYDROCODONE/APAP 5/325 MG TAB PO PRN ×2 (08:31→20:56)
[2020-11-11] MEDS: QUETIAPINE 25 MG TAB PO SCH (20:57)
[2020-11-11] MEDS: ENSURE ENLIVE 237 ML CAN PO SCH ×2 (21:00)
--- NOTE | 2020-11-11 23:43 | PN ---
Date of Progress Note: 11/11/2020 Subjective: The patient was seen this morning for followup, lying in bed, not in distress. Denies a ny pain, nausea, vomiting. Objective: Vital Signs: Reviewed. HEENT: Examination unremarkable. Lungs: Clear to auscultation. Heart: Sounds normal. Abdomen: Soft. Bowel sounds normal. No guarding, rigidity, tenderness, or distention. Extremities: No leg edema. Impression: 1.Right hip basicervical fracture, status post surgery. 2.Senile dementia. 3.Acute blood loss anemia. 4.Hypertension. 5.Chronic constipation. Plan: We will go ahead and continue current DVT prophylaxis with Eliquis. Continue current antihype rtensive medications. Stool softener. Physical Therapy to continue to work with the patient and the patient was denied to go to inpatient rehab and Social Service is assisting. Now family member for patient to go to alf facility as soon as this arrangement get completed. The patient naty l be discharged to go to such facility. I will see her tomorrow for followup. HUBERT/MODL Voice ID: [id number] Report ID: [id number]
[2020-11-12] MEDS: NITROGLYCERIN 1 GM PKT TD SCH ×3 (06:35→14:08)
[2020-11-12 06:45] VITALS: O2SAT 99
[2020-11-12] MEDS: FE SULF/FA/VIT B COMP & C TAB PO SCH (08:00)
[2020-11-12] MEDS: DOCUSATE NA/SENNA CONC 1 TAB PO SCH (08:58)
[2020-11-12] MEDS: APIXABAN 2.5 MG TABLET PO SCH (08:59)
[2020-11-12] MEDS: AMLODIPINE 10 MG TAB PO SCH (09:00)
[2020-11-12] MEDS: lisinopriL 20 MG TAB PO SCH (09:00)
[2020-11-12] MEDS: ENSURE ENLIVE 237 ML CAN PO SCH ×2 (09:00)
[2020-11-12] MEDS: HYDROCODONE/APAP 5/325 MG TAB PO PRN (09:01)
[2020-11-12 17:13] VITALS: BP 132/63; TEMP 96.9
--- NOTE | 2020-11-13 04:27 | DS ---
Date of Discharge: 11/12/2020 Disposition: Discharged to go to [facility]. Physical Examination: HEENT: Unremarkable. Lungs: Clear to auscultation. Heart: Heart sounds normal. Abdomen: Soft. Bowel sounds normal. No guarding, rigidity, tenderness, or distention. Extremities: No leg edema. Laboratory Data: Last CBC from 11/10/2020; white count 8.4, hemoglobin 9, platelets 315. Sodium 138, potassium 4.3, chloride 106, bicarb 25, BUN 20, creatinine 0.68, glucose 87. Lowest potassium was 3.4 on 11/08/2020 and it was corrected. Hospital Course: This is a 89-year-old female patient who was admitted to the hospital after she fell down at home. Please see dictated H and P for more information. After the patient was evaluated in the emergency room, she was admitted to the hospital with the right hip fracture. Dr. Kirkland was consulted from Orthopedic Surgery, and he evaluated and did surgery for right hip fracture day after admission. Postoperatively, the patient was stable except she had some problem with confusion and agitation, required one time injection of Geodon and we started her on Seroquel. We also ordered Haldol for p.r.n. use. Physical therapy was consulted and inpatient rehab was consulted. The patient is showing some signs of dementia and denied rehab admission because she is not able to do 3 hours of physical therapy and [facility] facility placement was recommended and social service assisted family with this placement of [facility] facility, and today, I was notified that arrangement has been completed and the patient is in stable condition for discharge. See copy of discharge order for more details. Initially, the patient was given Lovenox for DVT prophylaxis and subsequently it was changed to Eliquis 2.5 mg 2 times a day. Final Diagnoses: 1. Right hip basicervical fracture, status post surgery. 2. Hypokalemia. 3. Anemia, due to acute blood loss. 4. Hypertension. 5. Hypothyroidism. 6. Impaired fasting glucose. 7. Hyperlipidemia. 8. Colon cancer. 9. Chronic constipation. 10. Gastroesophageal reflux disease. 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 12. Insomnia. 13. Senile dementia. 14. Hiatal hernia. Discharge Medications And Instructions: See copy of discharge order for details. 1. Continue all prior home medication except stop Clopidogrel and stop trazodone. 2. Give Eliquis 2.5 mg 2 times a day for 1 month and then stop Eliquis and restart clopidogrel 75 mg daily at that time. 3. Give Senokot-S 2 tablets by mouth 2 times a day. 4. Give tramadol 50 mg by mouth 4 times a day as needed for pain and prescription written for 30 tablets, no refill. 5. Fall precautions. 6. Consult Physical therapy and Occupational therapy. 7. Weightbearing status as per Dr. Kirkland. 8. Follow up with Dr. Kirkland next week. HUBERT/MODL Voice ID: [id number] Report ID: [id number] MTDD
== END 2020-11-12 19:00 | DRG 481 ==
LOC: ER 02:04 → ERHOLD 06:45 → 4TH 10:47
PROVIDERS: ADMIT Internal Medicine; ATTEND Internal Medicine
PROC: 0QS636Z Reposition Right Upper Femur with Intramedullary Internal Fixation Device, Percutaneous Approach (ICD-10-PCS; principal; 2020-11-05 14:30)
DX: S72.001A Fracture of unspecified part of neck of right femur, initial encounter for closed fracture (principal); D62 Acute posthemorrhagic anemia; I10 Essential (primary) hypertension; E87.6 Hypokalemia; K59.09 Other constipation; F03.90 Unspecified dementia, unspecified severity, without behavioral disturbance, psychotic disturbance, mood disturbance, and anxiety; K44.9 Diaphragmatic hernia without obstruction or gangrene; M19.90 Unspecified osteoarthritis, unspecified site; E78.5 Hyperlipidemia, unspecified; G47.00 Insomnia, unspecified; E03.9 Hypothyroidism, unspecified; K21.9 Gastro-esophageal reflux disease without esophagitis; R73.01 Impaired fasting glucose; W18.30XA Fall on same level, unspecified, initial encounter; Z88.5 Allergy status to narcotic agent; Z88.0 Allergy status to penicillin; Z88.1 Allergy status to other antibiotic agents; Z85.038 Personal history of other malignant neoplasm of large intestine; Z85.05 Personal history of malignant neoplasm of liver; Z20.822 Contact with and (suspected) exposure to COVID-19
CPT/HCPCS: 36415; 51702; 71045; 73530; 80048; 80076; 81003; 83735; 83880; 84132; 84484; 85025; 85610; 93005; 97110; 97112; 97161; 97530; 99285; G0390; J1630; J1650; J2270; J2405; J2704; J3010; J3480; J3486; J7042; J7120; J7799; U0003

== ENCOUNTER 2021-11-29 07:58 | Emergency (ER) | payer OTHER ==
--- OUTSIDE RECORDS SUMMARY | 2021-11-29 08:00 | XMS REPORT | Continuity of Care Document ---
:1930 Author Organization [facility] t Address [address] [place] [address] Care Team Providers Name Role Phone [phone] Attending Clinician Unavailable Hang Reid V Attending Clinician Unavailable [phone] Admitting Clinician Unavailable Problems This patient has no known problems. Allergies, Adverse Reactions, Alerts This patient has no known allergies or adverse reactions. Medications This patient has no known medications. Procedures This patient has no known procedures. Encounters Start End Encounter Admission Attending Care Care Encounter Source Date/Time Date/Time Type Type Clinicians Facility Department ID 2021-08-20 Outpatient 3 [id number] [facility] RE[facility] [id number] [facility] 12:28:12 0708 2021-08-20 Outpatient 3 [id number] [facility] REF [id number] [facility] 12:27:51 0707 2021-01-30 2021-01-30 Outpatient Hang HCACL LABO [id number] -20 [facility] 23:47:00 23:47:00 [place] [id number] [facility] 2021-01-30 2021-01-30 Outpatient Hang HCAPM LABO [id number] -20 [facility] 16:26:00 16:26:00 [place] [id number] [facility]ie an [facility] Results Test Description Test Time Test Comments Results Result Comments Source UA RFLX MICR CULT IF INDICATED 2021-01-30 17:59:00 Test Item Value Reference Range Interpretation Comme nts UA COLOR (test code = COLU) YELLOW discript YEL/STRAW UA APPEARANCE (test code = APPU) HAZY discript CLEAR A UA GLUCOSE DIPSTICK (test code = DGLUU) NEGATIVE mg/dL NEG UA BILIRUBIN DIPSTICK (test code = BILU) NEGATIVE mg/dL NEG UA KETONE DIPSTICK (test code = KETU) NEGATIVE mg/dL NEG UA SPECIFIC GRAVITY (test code = SGU) 1.020 SG 1.005-1.030 UA BLOOD DIPSTICK (test code = KAYLEY) TRACE mg/DL NEG A UA PH DIPSTICK (test code = CHANI) 6.0 pH UNITS 5.0-7.0 UA PROTEIN DIPSTICK (test code = PROU) NEGATIVE mg/dL NEG UA UROBILINIOGEN DIPSTICK (test code = 0.2 mg/dL <2.0 URO) UA NITRITE DIPSTICK (test code = NELLIE) POSITIVE SCREEN NEG A UA LEUKOCYTE ESTERASE DIPSTICK (test 3+ Leuk/mcL NEGATIVE A code = LEUU) UA WBC (test code = WBCU) 10-20 #WBC/HPF 0-3 A UA RBC (test code = RBCU) 0-1 #RBC/HPF 0-3 UA BACTERIA (test code = BACU) 4+ /HPF NONE-TRACE A UA CULTURE NEEDED? (test code = UACULT) YES,WBC>10 & EPI<25 Criteria Culture CHK UA RFLX MICR CULT IF [id number] 17:11:00 Test Item Value Reference Range Interpretation Comments UA COLOR (test code = COLU) YELLOW discript YEL/STRAW UA APPEARANCE (test code = HAZY discript CLEAR A APPU) UA GLUCOSE DIPSTICK (test NEGATIVE mg/dL NEG code = DGLUU) UA BILIRUBIN DIPSTICK (test NEGATIVE mg/dL NEG code = BILU) UA KETONE DIPSTICK (test code NEGATIVE mg/dL NEG = KETU) UA SPECIFIC GRAVITY (test 1.020 SG 1.005-1.030 code = SGU) UA BLOOD DIPSTICK (test code TRACE mg/DL NEG A = KAYLEY) UA PH DIPSTICK (test code = 6.0 pH UNITS 5.0-7.0 CHANI) UA PROTEIN DIPSTICK (test NEGATIVE mg/dL NEG code = PROU) UA UROBILINIOGEN DIPSTICK 0.2 mg/dL <2.0 (test code = URO) UA NITRITE DIPSTICK (test POSITIVE SCREEN NEG A code = NELLIE) UA LEUKOCYTE ESTERASE 3+ Leuk/mcL NEGATIVE A DIPSTICK (test code = LEUU) UA CULTURE NEEDED? (test code Criteria Culture CHK = UACULT)
[2021-11-29 08:56] LABS: Protime INR 0.93
[2021-11-29 08:57] LABS: Absolute Lymphocytes (CBC) 2.4 K/uL (0.7-4.9); Hematocrit 39.8 % (36.0-45.0); Lymphocytes % 34.5 % (15.3-44.8); MPV 9.4 fL (7.6-11.3); RBC Red Blood Cell Count 4.22 M/uL (3.86-4.86)
[2021-11-29 08:59] LABS: Albumin 3.6 g/dL (3.4-5.0); Bilirubin Total 0.7 mg/dL (0.2-1.0); Potassium 3.5 mmol/L (3.5-5.1); Protein, Total 7.1 g/dL (6.4-8.2)
--- NOTE | 2021-11-29 09:24 | RAD REPORT ---
EXAM DESCRIPTION: RAD - Elbow Left 3 View - 11/29/2021 8:43 am CLINICAL HISTORY: Left elbow pain status post trauma FINDINGS: No fracture or dislocation is seen. Osteoporosis
[2021-11-29] MEDS ORDERED: NA CHLORIDE 0.9% 500 ML ONE (09:41)
--- NOTE | 2021-11-29 09:53 | RAD REPORT ---
EXAM DESCRIPTION: CT - Head C Spine Cap Danielle Dolan - 11/29/2021 9:29 am CLINICAL HISTORY: Head and neck injury with chest and abdominal pain status post fall. Head and neck pain . TECHNIQUE: Computed axial tomography of the head and cervical spine was obtained Computed axial tomography of the chest, abdomen and pelvis was obtained. 100 cc Isovue-300 was given intravenously coronal and sagittal reconstruction was performed. All CT scans are performed using dose optimization technique as appropriate and may include automated exposure control or mA/KV adjustment according to patient size. COMPARISON: CT and MRI 2018 and 2020 FINDINGS: An intracranial bleed is not seen. Moderate low-density areas within periventricular, deep and subcortical white matter probably ischemic changes secondary to small vessel disease. The ventricles are normal in caliber. An extra-axial fluid collection is not noted. Fluid within the sinuses is not seen A cervical fracture is not seen. No dislocation is seen. A mediastinal hematoma is not noted. A pleural effusion is not present. A lung contusion is not seen. The liver, spleen, pancreas, adrenals, kidneys and bladder do not demonstrate a traumatic injury 13 millimeter vascular splenic lesion unchanged from 2019 likely benign . Cholecystectomy. Prominence of the extrahepatic biliary tree unchanged from 2019. Cement has been chase chalino into a T12 vertebral body compression fracture. Postsurgical changes involve the hips IMPRESSION: No acute intracranial abnormality is seen A cervical fracture is not visualized. If the patient continues have symptoms to suggest intracranial /spinal cord pathology then MRI would be recommended. No acute traumatic injury involving the chest, abdomen or pelvis is seen.
--- NOTE | 2021-11-29 09:56 | RAD REPORT ---
EXAM DESCRIPTION: CT - Facial Bones W/ Mpr - 11/29/2021 9:29 am CLINICAL HISTORY: Facial injury status post fall COMPARISON: None TECHNIQUE: Computed axial tomography of the face was obtained. Coronal and sagittal reconstruction w as performed. All CT scans are performed using dose optimization technique as appropriate and may include automated exposure control or mA/KV adjustment according to patient size. FINDINGS: A fracture is not seen. A TMJ dislocation is not noted. The globes are intact. Fluid within the sinuses is not seen. IMPRESSION: Negative for a facial fracture.
[2021-11-29] MEDS ORDERED: FENTANYL CITR 100 MCG/2 ML ONE (10:11)
--- NOTE | 2021-11-29 10:14 | RAD REPORT ---
EXAM DESCRIPTION: RAD - Hip Left 2 View - 11/29/2021 8:43 am CLINICAL HISTORY: Left hip pain status post injury FINDINGS: Left hip arthroplasty in place Prosthesis is in good position No fracture or dislocation noted.
--- NOTE | 2021-11-29 10:30 | ER ---
Nurse's Notes [facility] Name: Elvi Roberts Age: 89 yrs Sex: Female : 1930 Arrival Date: 11/29/2021 Time: 08:02 Bed 4 Private MD: Diagnosis: Fall on same level, unspecified;Contusion of nose;Contusion of left front wall of thorax;Contusion of left elbow;Abrasion of left elbow;Abrasion of left forearm Presentation: 11/29 08:06 Chief complaint: Patient states: Tripped after using restroom and hitting her face on ww her walker. Complains of left shoulder pain, left elbow pain with laceration, left hip pain and left chest and back pain. Patient denies any LOC. Chief complaint: Patient states: received 50mcg of Fentanyl in route with EMS. Coronavirus screen: Client denies travel out of the [place] in the last 14 days. Ebola Screen: Patient denies travel to an Ebola-affected area in the 21 days before illness onset. 08:06 Method Of Arrival: EMS: [facility] 11:21 Initial Sepsis Screen: Does the patient meet any 2 criteria? No. Patient's initial ww sepsis screen is negative. Does the patient have a suspected source of infection? No. Patient's initial sepsis screen is negative. Risk Assessment: Do you want to hurt yourself or someone else? Patient reports no desire to harm self or others. Onset of symptoms was November 29, 2021. 11:21 Acuity: CHRISSY 3 ww Triage Assessment: 08:09 General: Appears in no apparent distress. Behavior is calm, cooperative. Pain: ww Complains of pain in face, back, chest, left arm and nose. EENT: Nares with bleeding noted swelling to nasal bridge. Neuro: Level of Consciousness is awake, alert, obeys commands, Oriented to person, place, time, situation, Speech is normal. Cardiovascular: Patient's skin is warm and dry. Respiratory: Airway is patent Respiratory effort is even, unlabored, Respiratory pattern is regular, symmetrical. GI: No signs and/or symptoms were reported involving the gastrointestinal system. Abdomen is non-distended. Derm: Skin is fragile, is thin, has skin tears on left elbow. Musculoskeletal: Swelling present in nose Reports pain in left rib cage, left back, left hip, left elbow, headache and nose. Historical: - Allergies: 08:09 Codeine; ww 08:09 PENICILLINS; ww 08:09 Sulfa (Sulfonamide Antibiotics); ww - PMHx: 08:09 colon cancer; GERD; Hypertension; Hypothyroidism; liver cancer; neuropathy; ww - Immunization history:: Adult Immunizations up to date. - Social history:: Smoking status: Patient denies any tobacco usage or history of. Screenin:13 Abuse screen: Denies threats or abuse. Denies injuries from another. Nutritional ww screening: No deficits noted. Tuberculosis screening: No symptoms or risk factors identified. Fall Risk Fall in past 12 months (25 points). Secondary diagnosis (15 points) impaired mobility, IV access (20 points). Ambulatory Aid- Crutches/Cane/Walker (15 pts). Gait- Weak (10 pts.). Mental Status- Oriented to own ability (0 pts). Total [place] Fall Scale indicates High Risk Score (45 or more points). Fall prevention measures have been instituted. Side Rails Up X 2 Placed Close to Nursing Station 1:1 Attendant Assigned Frequent Obs/Assessments Occuring Family Present and informed to notify staff if the need to leave the bedside As available patient and family educated on Fall Prevention Program and Strategies. Assessment: 08:13 Reassessment: Patient appears in no apparent distress at this time. see triage ww assessment. 09:24 Reassessment: Patient appears in no apparent distress at this time. Patient and/or ww family updated on plan of care and expected duration. Pain level reassessed. Patient is alert, oriented x 3, equal unlabored respirations, skin warm/dry/pink. family at bedside and updated with plan of care. 10:25 Reassessment: Patient appears in no apparent distress at this time. No changes from ww previously documented assessment. Patient and/or family updated on plan of care and expected duration. Pain level reassessed. Patient states feeling better. Vital Signs: 08:06 BP 185 / 75; Pulse 74; Resp 20; Temp 98.4; Pulse Ox 98% on R/A; Weight 72.57 kg; Height ww 5 ft. 8 in. (172.72 cm); Pain 8/10; 08:30 BP 179 / 67; Pulse 73; Resp 20; Pulse Ox 99% ; ww 09:05 BP 174 / 71; Pulse 74; Resp 18; Pulse Ox 97% ; ww 10:27 BP 166 / 78; Pulse 80; Resp 18; Pulse Ox 98% ; ww 08:06 Body Mass Index 24.33 (72.57 kg, 172.72 cm) ww ED Course: 08:02 Patient arrived in ED. 08:02 David Villeda NP is PHCP. pm1 08:02 Drake Mack MD is Attending Physician. pm1 08:06 Pat Wetzel RN is Primary Nurse. ww 08:13 Arm band placed on. ww 08:13 Patient has correct armband on for positive identification. Bed in low position. Call ww light in reach. Side rails up X2. Adult w/ patient. Client placed on continuous cardiac and pulse oximetry monitoring. NIBP monitoring applied. manager monitoring on. Pulse ox on. Warm blanket given. 08:43 Inserted saline lock: 20 gauge in right antecubital area, using aseptic technique. ww Blood collected. 08:45 Elbow Left 3 View XRAY In Process Unspecified. EDMS 08:45 Hip Left 2 View XRAY In Process Unspecified. EDMS 09:31 CT Traumagram (Head C Spine CAP W Con) In Process Unspecified. EDMS 09:31 CT Facial Bones W/O Con In Process Unspecified. EDMS 10:14 bedpan, voided clear yellow urine. ww 11:21 IV discontinued, intact, bleeding controlled, No redness/swelling at site. Pressure mb7 dressing applied. 11:21 No provider procedures requiring assistance completed. ww 11:22 Triage completed. ww Administered Medications: 09:42 Drug: NS 0.9% 500 ml Volume: 500 ml; Route: IV; Rate: 1 bolus; Site: right antecubital; ww 10:14 Drug: fentaNYL (PF) 50 mcg Route: IVP; Site: left antecubital; ww Outcome: 10:30 Discharge ordered by . pm1 11:21 Discharged to home via ambulance. ww 11:21 Condition: stable 11:21 Discharge instructions given to patient, family, EMS, Instructed on discharge instructions, follow up and referral plans. safety practices, wound care, Demonstrated understanding of instructions, follow-up care, wound care. 11:22 Patient left the ED. ww Signatures: Dispatcher [employer] EDNY David Villeda NP LINEMAN pm1 RojasLiyah, [facility] Pat Wetzel, RN RN ww
--- NOTE | 2021-11-29 10:30 | EDPHYS ---
Physician Documentation [facility] Name: Elvi Roberts Age: 89 yrs Sex: Female : 1930 Arrival Date: 11/29/2021 Time: 08:02 Bed 4 Private MD: ED Physician Drake Mack HPI: 11/29 08:21 This 89 yrs old Female presents to ER via EMS with complaints of Fall injury. pm1 08:21 Details of fall: The patient fell from an upright position, while walking. Onset: The pm1 symptoms/episode began/occurred just prior to arrival. Associated injuries: The patient sustained injury to the head, contusion, left elbow, abrasion, contusion, palmar aspect of left forearm, abrasion, left hip, pain, Left lateral rib cage pain. Severity of symptoms: in the emergency department the symptoms are unchanged. The patient has not recently seen a physician. Patient was walking out of the restroom with her walker and tripped. She hit her face on her walker and landed on the left side of her body with compliants of left elbow, hip, and rib cage pain. Historical: - Allergies: 08:09 Codeine; ww 08:09 PENICILLINS; ww 08:09 Sulfa (Sulfonamide Antibiotics); ww - PMHx: 08:09 colon cancer; GERD; Hypertension; Hypothyroidism; liver cancer; neuropathy; ww - Immunization history:: Adult Immunizations up to date. - Social history:: Smoking status: Patient denies any tobacco usage or history of. ROS: 08:21 Constitutional: Negative for fever, chills, and weight loss, Neck: Negative for injury, pm1 pain, and swelling, Cardiovascular: Negative for chest pain, palpitations, and edema, Respiratory: Negative for shortness of breath, cough, wheezing, and pleuritic chest pain, Abdomen/GI: Negative for abdominal pain, nausea, vomiting, diarrhea, and constipation, Back: Negative for injury and pain. 08:21 MS/extremity: Positive for pain, of the left hip and left elbow. 08:21 Skin: Positive for abrasion(s), of the left elbow and palmar aspect of left forearm. 08:21 Neuro: Positive for headache, Negative for numbness, tingling, weakness. 08:21 All other systems are negative. Exam: 08:21 Constitutional: This is a well developed, well nourished patient who is awake, alert, pm1 and in no acute distress. 08:21 Back: No spinal tenderness. No costovertebral tenderness. Full range of motion. 08:21 Head/face: Noted is no obvious of injury or deformity except contusion, that is superficial, of the bridge of nose. 08:21 Eyes: Exam is negative for acute changes, Periorbital structures: appear normal, Pupils: no acute changes, Extraocular movements: no acute changes. 08:21 ENT: Exam is negative for acute changes, Nose: Nasal septum: is midline, no septal hematoma appreciated, clotted blood, in both nares, Mouth: no acute changes, Lips: normal, moist, Oral mucosa: normal, pink and intact. 08:21 Neck: Exam negative for acute changes, C-spine: no acute changes, vertebral tenderness, is not appreciated. 08:21 Cardiovascular: Exam negative for acute changes, Rate: normal, Rhythm: regular, Pulses: no pulse deficits are appreciated. 08:21 Respiratory: Exam negative for acute changes, respiratory distress, shortness of breath, Breath sounds: are clear throughout. 08:21 Abdomen/GI: Exam negative for acute changes, Palpation: abdomen is soft and non-tender, in all quadrants. 08:21 Skin: Appearance: normal except for affected area, injury, abrasion(s), very small abrasion noted, of the palmar aspect of left forearm and left elbow. 08:21 Neuro: Exam negative for acute changes, Orientation: is normal, Mentation: is normal, Motor: is normal, moves all fours. Vital Signs: 08:06 BP 185 / 75; Pulse 74; Resp 20; Temp 98.4; Pulse Ox 98% on R/A; Weight 72.57 kg; Height ww 5 ft. 8 in. (172.72 cm); Pain 8/10; 08:30 BP 179 / 67; Pulse 73; Resp 20; Pulse Ox 99% ; ww 09:05 BP 174 / 71; Pulse 74; Resp 18; Pulse Ox 97% ; ww 10:27 BP 166 / 78; Pulse 80; Resp 18; Pulse Ox 98% ; ww 08:06 Body Mass Index 24.33 (72.57 kg, 172.72 cm) MDM: 08:05 Patient medically screened. [facility] 08:21 Data reviewed: vital signs. pm1 08:58 ED course: Family reports tetanus less than 5 years old. pm1 09:09 Data interpreted: Pulse oximetry: on room air is 98 %. Interpretation: normal. pm1 10:14 Refusal of service: The patient/guardian displays adequate decision making capability pm1 and despite a detailed discussion of alternatives, benefits, risks, and consequences refuses: left hand x-ray. Patient refused since she is able to move all fingers full range of motion without difficulty. 10:31 Counseling: I had a detailed discussion with the patient and/or guardian regarding: the pm1 historical points, exam findings, and any diagnostic results supporting the discharge/admit diagnosis, lab results, radiology results, the need for outpatient follow up, to return to the emergency department if symptoms worsen or persist or if there are any questions or concerns that arise at home. 11/29 08:13 Order name: CBC with Diff; Complete Time: 09:09 pm1 11/29 08:13 Order name: CMP; Complete Time: 09:09 pm1 11/29 08:12 Order name: Elbow Left 3 View XRAY; Complete Time: 09:26 pm1 11/29 08:12 Order name: Hip Left 2 View XRAY; Complete Time: 10:14 pm1 11/29 08:12 Order name: CT Traumagram (Head C Spine CAP W Con); Complete Time: 10:03 pm1 11/29 08:13 Order name: PT-INR; Complete Time: 08:58 pm1 11/29 08:12 Order name: CT Facial Bones W/O Con; Complete Time: 10:03 pm1 11/29 08:13 Order name: IV Saline Lock; Complete Time: 08:43 pm1 Administered Medications: 09:42 Drug: NS 0.9% 500 ml Volume: 500 ml; Route: IV; Rate: 1 bolus; Site: right antecubital; ww 10:14 Drug: fentaNYL (PF) 50 mcg Route: IVP; Site: left antecubital; ww Disposition Summary: 11/29/21 10:30 Discharge Ordered Location: Home pm1 Problem: new pm1 Symptoms: have improved pm1 Condition: Stable pm1 Diagnosis - Fall on same level, unspecified pm1 - Contusion of nose pm1 - Contusion of left front wall of thorax pm1 - Contusion of left elbow pm1 - Abrasion of left elbow pm1 - Abrasion of left forearm pm1 Followup: pm1 - With: Emergency Department - When: As needed - Reason: Worsening of condition Followup: pm1 - With: Private Physician - When: 2 - 3 days - Reason: Recheck today's complaints, Continuance of care, Re-evaluation by your physician Discharge Instructions: - Discharge Summary Sheet pm1 - Contusion pm1 - Rib Contusion pm1 - Facial or Scalp Contusion pm1 - Fall Prevention in the Home, Adult pm1 Forms: - Medication Reconciliation Form pm1 - Thank You Letter pm1 - Antibiotic Education pm1 - Prescription Opioid Use pm1 Signatures: Dispatcher [employer] EDMS Drake Mack MD MD cha Marinas, Patrick, NP MEDICAL ASSISTANT PRN pm1 Pat Wetzel RN RN ww
[2021-11-29 11:29] VITALS: TEMP 98.4
[2021-11-29 11:33] VITALS: BP 166/78; O2SAT 98
== END 2021-11-29 11:22 | disposition home or self-care (01) ==
LOC: ER 07:58
DX: S20.212A Contusion of left front wall of thorax, initial encounter (principal); S50.812A Abrasion of left forearm, initial encounter; S50.312A Abrasion of left elbow, initial encounter; S00.33XA Contusion of nose, initial encounter; S50.02XA Contusion of left elbow, initial encounter; W01.0XXA Fall on same level from slipping, tripping and stumbling without subsequent striking against object, initial encounter; I10 Essential (primary) hypertension; Z85.038 Personal history of other malignant neoplasm of large intestine; Z85.05 Personal history of malignant neoplasm of liver; Z88.0 Allergy status to penicillin; Z88.2 Allergy status to sulfonamides; Z88.5 Allergy status to narcotic agent
CPT/HCPCS: 85025; 36415; 85610; 80053; 70450; 72125; 71260; 70486; 76377; 74177; 73502; 73080; 96374; 99284; Q9967; J3010; J7040